=== PATIENT | male | born 1970 | race Caucasian/White ===

== ENCOUNTER 2017-09-01 12:09 | Emergency (ER) | payer OTHER ==
--- NOTE | 2017-09-01 12:31 | PDOC ---
History of Present Illness - General Chief Complaint: Nausea/Vomiting Stated Complaint: N/V/D COUGH Time Seen by Provider: 09/01/17 12:14 History Source: Patient, Spouse Exam Limitations: No Limitations - History of Present Illness Initial Comments: 47 yo M history angioedema presents with 1 day history of N/V/D. He states he has been having cough for the past few days. No fever, no recent travel, no known sick contacts. He vomited multiple times this morning, NBNB. C/o diffuse aching pain in the abdomen. Past History - Past Medical History Allergies/Adverse Reactions: Allergies Allergy/AdvReac Type Severity Reaction Status Date / Time No Known Allergies Allergy Verified 09/01/17 12:12 Home Medications: Ambulatory Orders Ondansetron [Zofran Odt -] 4 mg SL TID PRN #21 od.tablet 09/01/17 Review of Systems - Review of Systems Able to Perform ROS?: Yes Comments:: GENERAL/CONSTITUTIONAL: No fever or chills. +Weakness. HEAD, EYES, EARS, NOSE AND THROAT: No change in vision. No ear pain or discharge. No sore throat. CARDIOVASCULAR: No chest pain or shortness of breath. RESPIRATORY: +Cough. No wheezing or hemoptysis. GASTROINTESTINAL: +Nausea, vomiting, and diarrhea. No constipation. GENITOURINARY: No dysuria, frequency, or change in urination. MUSCULOSKELETAL: No joint or muscle swelling or pain. No neck or back pain. SKIN: No rash NEUROLOGIC: No headache, vertigo, loss of consciousness, or change in strength/ sensation. ENDOCRINE: No increased thirst. No abnormal weight change. HEMATOLOGIC/LYMPHATIC: No anemia, easy bleeding, or history of blood clots. ALLERGIC/IMMUNOLOGIC: No hives or skin allergy. *Physical Exam - Physical Exam Comments: GENERAL: Awake, alert, and fully oriented, in no acute distress. Appears ill but nontoxic. HEAD: No signs of trauma EYES: PERRLA, EOMI, sclera anicteric, conjunctiva clear ENT: Auricles normal inspection, hearing grossly normal, nares patent, oropharynx clear without exudates. Dry mucosa NECK: Normal ROM, supple, no lymphadenopathy, JVD, or masses LUNGS: Breath sounds equal, clear to auscultation bilaterally. No wheezes, and no crackles HEART: Regular rate and rhythm, normal S1 and S2, no murmurs, rubs or gallops ABDOMEN: Soft, diffuse mild tenderness, hyperactive bowel sounds. No guarding, no rebound. No masses EXTREMITIES: Normal range of motion, no edema. No clubbing or cyanosis. No cords, erythema, or tenderness NEUROLOGICAL: Cranial nerves II through XII grossly intact. Normal speech, normal gait SKIN: Warm, Dry, normal turgor, no rashes or lesions noted. ED Treatment Course - LABORATORY CBC & Chemistry Diagram: 09/01/17 12:50 09/01/17 12:50 Medical Decision Making - Medical Decision Making 09/01/17 15:35 Pt reports significant improvement after the toradol. Nausea and vomiting have improved, he is now awake and alert, no longer appears dehydrated. Abd soft and nontender, no signs of acute abdomen. Will complete IV fluids then give a PO challenge. 09/01/17 16:16 Patient tolerated PO challenge. Reports feeling much better. Stable for DC home. Counseled him to return if he has persistent pain, fever, or if the pain localizes. *DC/Admit/Observation/Transfer Diagnosis at time of Disposition: Nausea vomiting and diarrhea - Discharge Dispostion Disposition: HOME Condition at time of disposition: Improved Admit: No - Prescriptions Prescriptions: Ondansetron [Zofran Odt -] 4 mg SL TID PRN #21 od.tablet PRN Reason: Nausea And/Or Vomiting - Referrals - Patient Instructions Printed Discharge Instructions: DI for Diarrhea and Traveler's Diarrhea -- Adult, DI for Vomiting -- Adult - Post Discharge Activity
[2017-09-01] MEDS ORDERED: FAMOTIDINE 20 MG/50 ML IVPB 20 MG/50 ML MG IVPB ONE (12:32)
[2017-09-01] MEDS ORDERED: SODIUM CHLORIDE 3,000 ML IV STA (12:32)
[2017-09-01] MEDS ORDERED: ONDANSETRON 4 MG/2 ML VIAL IVPUSH ONE (12:32)
[2017-09-01 12:34] VITALS: BP 125/69; PULSE 90; TEMP 98.3; BMI 27.9
[2017-09-01] MEDS ORDERED: ONDANSETRON 4 MG/2 ML VIAL ONE (12:42)
[2017-09-01 13:03] LABS: BASO % 0.1 % (0-2.0); HEMOGLOBIN 15.4 GM/dl (11.7-16.9); WHITE BLOOD COUNT 7.7 K/mm3 (4.0-10.8)
[2017-09-01 13:06] LABS: EOS % 0.7 % (0-4.5); HEMATOCRIT 45.2 % (35.4-49); LYMPH % 5.7 % (8-40); MCH 29.7 pg (25.7-33.7); MCHC 34.1 g/dl (32.0-35.9); MEAN PLT VOLUME 9.1 fl (7.5-11.1); MONO % 5.4 % (3.8-10.2); NEUT % 88.1 % (42.8-82.8); PLATELET COUNT 152 K/MM3 (134-434); RDW 12.5 % (11.9-15.9)
[2017-09-01] MEDS ORDERED: FAMOTIDINE IV 20 MG/12 ML VIAL IVPUSH ONE (13:06)
[2017-09-01 13:13] LABS: ALBUMIN 3.7 g/dl (3.5-5.0); ALK PHOS 55 U/L (32-92); ANION GAP 7 (8-16); BILIRUBIN,TOTAL 0.8 mg/dl (0.2-1.0); BLOOD UREA NITROGEN 20 mg/dl (7-18); CALCIUM 8.5 mg/dl (8.4-10.2); CHLORIDE 106 mmol/L (98-107); CO2 22 mmol/L (22-28); CREATININE 0.8 mg/dl (0.6-1.3); GLUCOSE,RANDOM 112 mg/dl (74-106); LIPASE 21 U/L (22-51); POTASSIUM 3.3 mmol/L (3.5-5.1); SGOT/AST 20 U/L (10-42); SGPT/ALT 17 U/L (10-40); SODIUM 135 mmol/L (136-145); TOT PROT 6.5 g/dl (6.4-8.3)
[2017-09-01] MEDS ORDERED: KETOROLAC TROMETHAMINE 30 MG/1 ML VIAL ONE (13:53)
[2017-09-01] MEDS ORDERED: KETOROLAC TROMETHAMINE 30 MG/1 ML VIAL IVPUSH ONE (13:55)
[2017-09-01 14:21] LABS: URINE APPEARANCE Clear; URINE BILIRUBIN Negative (NEGATIVE); URINE BLOOD Negative (NEGATIVE); URINE GLUCOSE (UA) Negative (NEGATIVE); URINE KETONE Negative (NEGATIVE); URINE NITRITE Negative (NEGATIVE); URINE PROTEIN Negative (NEGATIVE); URINE UROBILINOGEN 0.2 (0.2-1.0)
[2017-09-01 14:22] LABS: URINE COLOR YELLOW
== END 2017-09-01 16:29 | disposition home or self-care (01) ==
LOC: MERGE 12:09 → FER 12:09
PROC: 3E033GC Introduction of Other Therapeutic Substance into Peripheral Vein, Percutaneous Approach (ICD-10-PCS; principal; 2017-09-01)
PROC: 3E0333Z Introduction of Anti-inflammatory into Peripheral Vein, Percutaneous Approach (ICD-10-PCS; 2017-09-01)
PROC: 3E033GC Introduction of Other Therapeutic Substance into Peripheral Vein, Percutaneous Approach (ICD-10-PCS; 2017-09-01)
PROC: 3E0337Z Introduction of Electrolytic and Water Balance Substance into Peripheral Vein, Percutaneous Approach (ICD-10-PCS; 2017-09-01)
DX: R11.2 Nausea with vomiting, unspecified (principal); R19.7 Diarrhea, unspecified
CPT/HCPCS: 36415; 80053; 81003; 83690; 85025; 99283-25

== ENCOUNTER 2018-07-27 19:49 | Emergency (ER) | payer OTHER ==
--- NOTE | 2018-07-27 19:55 | PDOC ---
History of Present Illness - General History Source: Patient Exam Limitations: No Limitations - History of Present Illness Initial Comments: 07/27/18 20:23 The patient is a 48 year old male, with a significant PMH of angioedema, who presents to the emergency department complaining of hyperventilation. The patient states he has been having intermittent headaches and swelling of his throat and hands for the past few month. Today the patient complains of SOB, headache, anxiety and hand numbness. He mentions hes under alot of stress secondary to work and experienced an anxiety attack last week. The patient states he is currently not taking any medication for his anxiety The patient denies chest pain and dizziness. Denies fever, chills, nausea, vomit, diarrhea and constipation. PAST MEDICAL HISTORY: no significant history PAST SURGICAL HISTORY: no significant history FAMILY HISTORY: no pertinent history SOCIAL HISTORY: Pt lives with family and is employed. MEDICATIONS: reviewed ALLERGIES: As per nursing notes Adult ROS General: No fevers or chills, no weakness, no weight loss HEENT: No change in vision. No sore throat,. No ear pain CardioVascular: +Shortness of breath Respiratory:No cough, or wheezing. Gastrointestinal: no nausea, vomiting, diarrhea or constipation, No rectal bleeding Genitourinary: No dysuria, hematuria, or frequency Musculoskeletal: No joint or muscle pain or swelling Neurologic: + headache. No vertigo, dizziness or loss of consciousness Psychiatric: nor depression Skin: No rashes or easy bruising Endocrine: no increased thirst or abnormal weight change Allergic: no skin or latex allergy All other systems reviewed and normal Adult Exam: General: +Very Anxious. +Hyperventilation. Well-nourished well-developed individual. HEENT: No evidence of angioedema. Throat: Normal, tonsils normal, no erythema or exudate Neck: Supple, no meningeal signs, no lymphadenopathy Eyes::Pupils equal reactive and round, extraocular motion intact Chest: Nontender to palpation Cardiac: S1-S2 normal, regular rate and rhythm, no murmurs rubs or gallops Respiratory: Lungs clear to auscultation bilateral Abdomen: Soft, nondistended, normal bowel sounds, nontender to palpation diffusely Extremities: Warm, dry, no cyanosis, clubbing, or edema Skin: No rashes Neuro: Alert and oriented x3, nonfocal exam, grossly intact, normal gait Psych: Normal mood and affect <Cierra Lamar - Last Filed: 07/27/18 20:23> - General History Source: Patient Exam Limitations: No Limitations - History of Present Illness Initial Comments: 07/27/18 20:06 This is a 48-year-old male who comes in with anxiety/panic attack. Patient has a history of anxiety and panic was on medication but stopped taking it some time ago. Patient said over the last several weeks he has had multiple anxiety/ panic attacks consist of palpitations, shortness of breath and feeling of impending doom. Patient said he has had a headache now for several weeks which he attributes to his angioedema however he is not taking any medication for it and came in this evening hyperventilating and panicking. On arrival patient was noted to have carpal pedal spasm and was very anxious Patient was given Xanax after a normally exam with the exception of hyperventilation. Discussed with patient's importance of restarting his anxiety/panic medication as he clearly needs it. 07/27/18 20:32 Reevaluation patient feels much better his blood pressure and respiratory rate are now normal. Patient accompanied home with his significant other will follow up with his therapist and restart his anxiety medication. <Tana Fuentes I - Last Filed: 07/27/18 20:33> - General Chief Complaint: Lightheaded Stated Complaint: DIZZY,NAUSEA/ANXIETY Time Seen by Provider: 07/27/18 19:54 Past History <Cierra Lamar - Last Filed: 07/27/18 20:23> - Past Medical History COPD: No - Immunization History Immunization Up to Date: No - Suicide/Smoking/Psychosocial Hx Smoking Status: No Smoking History: Never smoked Have you smoked in the past 12 months: No Number of Cigarettes Smoked Daily: 0 Cigars Per Day: 0 Hx Alcohol Use: No Drug/Substance Use Hx: No Substance Use Type: None <Tana Fuentes I - Last Filed: 07/27/18 20:33> - Past Medical History Allergies/Adverse Reactions: Allergies Allergy/AdvReac Type Severity Reaction Status Date / Time No Known Allergies Allergy Verified 07/27/18 19:51 Home Medications: Ambulatory Orders Prednisone [Deltasone] 40 mg PO PRN 07/27/18 *Physical Exam - Vital Signs Last Vital Signs Temp Pulse Resp BP Pulse Ox 97.6 F 82 22 H 156/102 H 100 07/27/18 19:53 07/27/18 19:53 07/27/18 19:53 07/27/18 19:53 07/27/18 19:53 <Cierra Lamar - Last Filed: 07/27/18 20:23> Moderate Sedation - Procedure Monitoring Vital Signs: Procedure Monitoring Vital Signs Temperature 97.6 F 07/27/18 19:53 Pulse Rate 82 07/27/18 19:53 Respiratory Rate 22 H 07/27/18 19:53 Blood Pressure 156/102 H 07/27/18 19:53 O2 Sat by Pulse Oximetry (%) 100 07/27/18 19:53 <Cierra Lamar - Last Filed: 07/27/18 20:23> ED Treatment Course - Medications Given in the ED: ED Medications Discontinued Medications Generic Name Dose Route Start Last Admin Trade Name Freq PRN Reason Stop Dose Admin Alprazolam 1 mg 07/27/18 20:04 07/27/18 20:07 Xanax PO 07/27/18 20:05 1 mg ONCE STA Administration <Cierra Lamar - Last Filed: 07/27/18 20:23> *DC/Admit/Observation/Transfer - Attestations Scribe Attestion: 07/27/18 20:24 Documentation prepared by Cierra Lamar, acting as medical diagnostic radiographer for Tana Fuentes MD. <Cierra Lamar - Last Filed: 07/27/18 20:23> - Discharge Dispostion Decision to Admit order: No <Tana Fuentes I - Last Filed: 07/27/18 20:33> Diagnosis at time of Disposition: Panic anxiety syndrome - Discharge Dispostion Disposition: HOME Condition at time of disposition: Stable - Referrals Referrals: Tan Zaragoza MD [Primary Care Provider] - - Patient Instructions Additional Instructions: It is important that you follow-up with a therapist and get restarted on medication for your anxiety/panic attacks. Tylenol or Motrin as needed for headaches. Return to the emergency department immediately with ANY new, persistent or worsening symptoms. Continue any medications as previously prescribed by your physician. You should follow up with your primary doctor as soon as possible regarding today's emergency department visit. . Please make sure your doctor reviews the results of your emergency evaluation. Thank you for coming to the Emergency Department today for your care. It was a pleasure to see you today. Please note that your evaluation is INCOMPLETE until you follow-up with your doctor. - Post Discharge Activity
[2018-07-27 19:59] VITALS: TEMP 97.6; BMI 27.2
[2018-07-27] MEDS ORDERED: ALPRAZolam 1 MG TABLET PO PRN (19:59)
[2018-07-27] MEDS ORDERED: ALPRAZolam 0.25 MG TABLET ONE (19:59)
[2018-07-27] MEDS ORDERED: ALPRAZolam 1 MG TABLET PO STA (20:04)
[2018-07-27 20:31] VITALS: BP 122/75; PULSE 75
== END 2018-07-27 20:48 | disposition home or self-care (01) ==
LOC: FER 19:49
DX: F41.0 Panic disorder [episodic paroxysmal anxiety] (principal)
CPT/HCPCS: 99281-25

== ENCOUNTER 2018-11-09 12:54 | Emergency (ER) | payer OTHER ==
--- NOTE | 2018-11-09 12:56 | PDOC ---
History of Present Illness - General Chief Complaint: Pain Stated Complaint: ABD PAIN Time Seen by Provider: 11/09/18 12:56 History Source: Patient Exam Limitations: No Limitations - History of Present Illness Initial Comments: 11/09/18 13:45 HPI 48 YOM with h/o anxiety and depression, angioedema 2/2 stress, kidney stone presenting with LLQ and flank pain since 3AM where he woke up with sweats and shakes, nausea. LLQ pain described as colicky, intermittent and sharp/stabbing, with associated left flank pain. Worse with moving and breathing. pt states similar to prior kidney stone when he was 22 y/o, which was uncomplicated and spontaneously passed. he tool aleve this morning without relief. Denies fever, chills, chest pain, SOB, palpitation, dizziness, weakness, diarrhea, bloody stools or constipation, bladder and bowel problems, no testicular or uretheral sx/pain, no discharge. n o leg swelling, No sick contacts or travel. no suspicious food intake. Allergies: NKA Social history: No smoking. No alcohol. No illicit drugs. PSH: none PMHx anxiety and depression, angioedema 2/2 stress, kidney stone Family history: noncontributory. ROS Constitutional: no fevers or chills. HEENT: no headache or dizziness. CVS: no cp or syncope. Resp: no sob. No cough. Gastrointestinal: +abdominal and flank pain. No vomiting or diarrhea or constipation. No bloody stools Genitourinary: no urinary sx, hematuria. No testicular or scrotal pain. No urethral discharge. MUSCULOSKELETAL: No joint pain and swelling. No neck or back pain. SKIN: no redness or skin changes, no discharge, no rash. No wounds. NEUROLOGIC: No headache, dizziness, LOC or altered mental status. No weakness, numbness or tingling. Allergic/Immunologic: no allergies All other systems reviewed and negative, or as documented in HPI. PE: General: mild distress 2/2 pain. +colicky. HEENT: NCAT, PERRL, EOMI, clear conjunctiva, anicteric, dry mucus membranes, clear oropharynx, no oral lesions.. Neck: neck supple, FROM Resp: CTAB, normal and even respirations, no respiratory distress CVS: RRR, no murmurs, 2+ peripheral pulses throughout, no peripheral edema Abdomen: soft, LLQ and flank tenderness. no rebound or guarding. : normal external genitalia, no lesions, normal testicular lie, no scrotal or testicular edema or tenderness. +cremaster reflex bilaterally. no hernia. chaperoned with Anita RN at bedside. Back: nontender, normal inspection and ROM MSK: no edema, BILL x4, ROM intact. No clubbing or cyanosis. normal bulk and tone. Neuro: alert Skin: warm and well perfused, cap refill <2 sec, normal color 11/09/18 13:47 11/09/18 15:01 Past History - Past Medical History Allergies/Adverse Reactions: Allergies Allergy/AdvReac Type Severity Reaction Status Date / Time No Known Allergies Allergy Verified 11/09/18 13:01 Home Medications: Ambulatory Orders Ciprofloxacin [Cipro -] 500 mg PO Q12H #20 tablet 11/09/18 Clonazepam [Klonopin] mg PO ASDIR 11/09/18 Fluoxetine HCl [Prozac] 20 mg PO DAILY 11/09/18 Oxycodone HCl 10 mg PO QID PRN #12 tablet MDD 4 11/09/18 metroNIDAZOLE [Flagyl -] 500 mg PO DAILY #20 tablet 11/09/18 COPD: No - Immunization History Immunization Up to Date: No - Suicide/Smoking/Psychosocial Hx Smoking Status: No Smoking History: Never smoked Have you smoked in the past 12 months: No Number of Cigarettes Smoked Daily: 0 Cigars Per Day: 0 Hx Alcohol Use: No Drug/Substance Use Hx: No Substance Use Type: None ED Treatment Course - LABORATORY CBC & Chemistry Diagram: 11/09/18 13:13 11/09/18 13:13 Medical Decision Making - Medical Decision Making 11/09/18 13:46 hpi as documented VS reviewed, wnl. DDx abdominal pain: Renal colic, ureteral stone/obstruction, metabolic/ electrolyte derangements. GERD, PUD, esophageal spasm, pancreatitis, hepatitis, constipation, UTI, pyelonephritis, hernia, appendicitis, diverticulitis labs and lytes wnl. analgesia here with toradol. then morphine additionally. with appropriate clinical response, feels improved. no fever, nontoxic appearing. UA with some blood, but no s/s infection. CT a/p neg for ureteral stones (initial top diff dx), +acute sigmoid diverticulitis. cipro and flagyl x1 dose here, additional rx oxycodone for severe pain. Will discharge patient with a short course of opiates. Went over the risks of the medication. Advised patient to not mix with other products containing acetaminophen, to not combine with alcohol, or other illicit drugs, to not drive or operate machinery, and to refrain from any activity that will require complete attention while taking this medication. Pt informed of my clinical impression, treatment recommendations and disposition plan. All questions answered to patient's satisfaction and expressed understanding and comfort with this. Reasons for returning to the ED sooner discussed with the patient otherwise, follow up with primary care physician. At the time of discharge, the patient is alert, clinically improved, tolerating po and verbalizes understanding of instructions. Patient does not suffer from an acute life-threatening medical condition at this time he is safe for outpatient follow-up. 11/09/18 15:18 *DC/Admit/Observation/Transfer Diagnosis at time of Disposition: Acute diverticulitis - Discharge Dispostion Disposition: HOME Condition at time of disposition: Stable Decision to Admit order: No - Prescriptions Prescriptions: Ciprofloxacin [Cipro -] 500 mg PO Q12H #20 tablet metroNIDAZOLE [Flagyl -] 500 mg PO DAILY #20 tablet Oxycodone HCl 10 mg PO QID PRN #12 tablet MDD 4 PRN Reason: Pain - Referrals Referrals: Tan Zaragoza MD [Non Staff, Medical] - [facility] [place] [facility] [Provider Group] [facility] [Provider Group] - Patient Instructions Printed Discharge Instructions: DI for Diverticulitis Additional Instructions: 1) Please follow-up with your primary care doctor in the next 1-2 days. Please call tomorrow for an appointment. If you cannot follow-up with your primary care doctor please return to the ED for any urgent issues. 2) You were given a copy of the tests performed today. Please bring the results with you and review them with your primary care doctor. Your laboratory / imaging results were notable for Acute Diverticulitis 3) If you have any worsening of symptoms or any other concerns please return to the ED immediately. Return if worsening symptoms including fevers, headache, vomiting, visual or hearing disturbances, worsening abdominal pain, bloody stools, chest pain, shortness of breath, syncope, dehydration, inability to take things by mouth/vomiting, altered mental status, or worsening concerning symptoms. 4) Please continue taking your home medications as directed. your medications on discharge include Ciprofloxacin and flagyl twice a day x 10 days . side effects may include upset stomach, abdominal pain, vomiting, or diarrhea. do not drink alcohol with your medications. PAIN MEDICATIONS Please take IBUPROFEN (aka MOTRIN, ADVIL, ALEVE) 400 mg and/or ACETAMINOPHEN ( aka Tylenol) 650-975 mg every 6 hours, as needed, for pain. Please do not take these medications if you have a bleeding disorder, stomach or GI ulcer problems or liver disease. Please take one tablet of OXYCODONE every 6 hours, as needed for SEVERE pain. Please do not take this medication unless you absolutely need it, it is very addictive. Please do not drive, operate heavy machinery or make important decisions while on this medication, it can cloud your judgement. Stay well hydrated and rest adequately. - Post Discharge Activity Forms/Work/School Notes: Back to Work
[2018-11-09] MEDS ORDERED: SODIUM CHLORIDE 1,000 ML IV STA (12:57)
[2018-11-09 13:05] VITALS: TEMP 97.7; BMI 28.7
[2018-11-09] MEDS ORDERED: KETOROLAC TROMETHAMINE 15 MG/ML VIAL IVPUSH ONE (13:31)
[2018-11-09] MEDS ORDERED: ONDANSETRON 4 MG/2 ML VIAL IVPUSH ONE (13:31)
[2018-11-09 13:37] LABS: BASO % 0.2 % (0-2.0); EOS % 0.2 % (0-4.5); HEMOGLOBIN 14.7 GM/dl (11.7-16.9); LYMPH % 6.9 % (8-40); MCHC 32.7 g/dl (32.0-35.9); MEAN CELL VOLUME 85.5 fl (80-96); MONO % 4.3 % (3.8-10.2); NEUT % 88.4 % (42.8-82.8); PLATELET COUNT 200 K/MM3 (134-434); RBC 5.25 M/mm3 (4.00-5.60); RDW 12.1 % (11.9-15.9)
[2018-11-09] MEDS ORDERED: KETOROLAC TROMETHAMINE 30 MG/1 ML VIAL ONE (13:39)
[2018-11-09] MEDS ORDERED: ONDANSETRON 4 MG/2 ML VIAL ONE (13:42)
[2018-11-09 13:44] LABS: URINE APPEARANCE CLEAR; URINE BILIRUBIN NEGATIVE (NEGATIVE); URINE COLOR YELLOW; URINE GLUCOSE (UA) NEGATIVE (NEGATIVE); URINE KETONE NEGATIVE (NEGATIVE); URINE LEUK ESTERASE NEGATIVE (NEGATIVE); URINE NITRITE NEGATIVE (NEGATIVE); URINE PROTEIN NEGATIVE (NEGATIVE); URINE UROBILINOGEN 4.0 E.U/dl (0.2-1.0)
[2018-11-09 13:50] LABS: ALBUMIN 3.9 g/dl (3.4-5.0); ALK PHOS 64 U/L (45-117); ANION GAP 8 MMOL/L (8-16); BILIRUBIN,TOTAL 1.1 mg/dl (0.2-1); BLOOD UREA NITROGEN 15 mg/dl (7-18); CALCIUM 8.8 mg/dl (8.5-10); CHLORIDE 102 mmol/L (98-107); CO2 24 mmol/L (21-32); CREATININE 0.9 mg/dl (0.55-1.3); GLUCOSE,RANDOM 112 mg/dl (74-106); POTASSIUM 3.9 mmol/L (3.5-5.1); SGOT/AST 13 U/L (15-37); SGPT/ALT 11 U/L (13-61); SODIUM 134 mmol/L (136-145); TOT PROT 6.7 g/dl (6.4-8.2)
[2018-11-09 13:59] LABS: EPI CELLS FEW /HPF; URINE WBC 0-2 (0-2)
[2018-11-09] MEDS ORDERED: CIPROFLOXACIN 500 MG TABLET (RESTRICTED TO ID) PO ONE (14:46)
[2018-11-09] MEDS ORDERED: metroNIDAZOLE 500 MG TABLET PO ONE (14:46)
[2018-11-09] MEDS ORDERED: morphine CARPU-JECT 4 MG/1 ML DISP.SYRIN IVPUSH ONE (14:49)
[2018-11-09] MEDS ORDERED: metroNIDAZOLE 250 MG TABLET ONE (14:59)
[2018-11-09] MEDS ORDERED: CIPROFLOXACIN 250 MG TABLET (RESTRICTED TO ID) PO ONE (15:00)
[2018-11-09] MEDS ORDERED: morphine SULFATE 4 MG/ML VIAL ONE (15:00)
[2018-11-09 16:10] VITALS: BP 123/66; PULSE 78
[2018-11-09 18:12] LABS: LIPASE 79 U/L (73-393)
== END 2018-11-09 16:10 | disposition home or self-care (01) ==
LOC: FER 12:54
PROC: 3E0333Z Introduction of Anti-inflammatory into Peripheral Vein, Percutaneous Approach (ICD-10-PCS; principal; 2018-11-09)
PROC: 3E03329 Introduction of Other Anti-infective into Peripheral Vein, Percutaneous Approach (ICD-10-PCS; 2018-11-09)
PROC: 3E033NZ Introduction of Analgesics, Hypnotics, Sedatives into Peripheral Vein, Percutaneous Approach (ICD-10-PCS; 2018-11-09)
PROC: 3E0337Z Introduction of Electrolytic and Water Balance Substance into Peripheral Vein, Percutaneous Approach (ICD-10-PCS; 2018-11-09)
DX: K57.92 Diverticulitis of intestine, part unspecified, without perforation or abscess without bleeding (principal); F41.8 Other specified anxiety disorders; T78.3XXA Angioneurotic edema, initial encounter
CPT/HCPCS: 36415; 74176-TC; 80053; 81003; 81015; 83690; 85025; 87086; 99285-25; J7030

== ENCOUNTER 2018-11-11 13:22 | Inpatient (IN) | payer OTHER ==
[2018-11-11] MEDS ORDERED: SODIUM CHLORIDE 500 ML IV ONE (13:27)
[2018-11-11] MEDS ORDERED: morphine CARPU-JECT 4 MG/1 ML DISP.SYRIN IVPUSH ONE ×2 (13:38→16:01)
[2018-11-11] MEDS ORDERED: SODIUM CHLORIDE 1,000 ML IV ONE (13:40)
[2018-11-11] MEDS ORDERED: ONDANSETRON 4 MG/2 ML VIAL IVPUSH ONE (13:40)
[2018-11-11] MEDS ORDERED: ONDANSETRON 4 MG/2 ML VIAL ONE (13:42)
[2018-11-11] MEDS ORDERED: morphine SULFATE 4 MG/ML VIAL ONE ×2 (13:42→16:03)
[2018-11-11] MEDS ORDERED: PIPERACILLIN/TAZOB 4.5 GM 4.5 GM in DEXTROSE 5%-WATER 100 ML IVPB ONE (14:24)
--- NOTE | 2018-11-11 14:24 | PDOC ---
History of Present Illness - General History Source: Patient Exam Limitations: No Limitations - History of Present Illness Initial Comments: 11/11/18 14:56 The patient is a 48 year old male, with a significant PMH of depression and angioedema, who presents to the emergency room for evaluation of constant left lower quadrant abdominal pain. The patient was seen here on 11/09/18 for similar symptoms and was diagnosed with diverticulitis and sent home with a prescription of antibiotics. The patient states that once the pain medications wore off on Saturday, that the pain came back like crazy. He explains that the pain has been progressively getting worse and is exacerbated upon exertion. Patient notes that he has not been able to keep anything down PO. He also reports chills, a subjective fever, and hematuria - red/orange in color. Denies history of colonoscopies. Reports kidney stones around 21 years old. The patient denies chest pain, shortness of breath, headache and dizziness. Denies fever, chills, nausea, vomit, diarrhea and constipation. Denies dysuria, frequency, urgency and hematuria. Allergies: NKA Social history: None reported <Bindu Stanford - Last Filed: 11/11/18 14:56> <Devan Altamirano - Last Filed: 11/16/18 22:23> - General Chief Complaint: Pain Stated Complaint: ABD PAIN, HEMATURIA Time Seen by Provider: 11/11/18 13:26 Past History <Bindu Stanford - Last Filed: 11/11/18 14:56> - Past Medical History COPD: No GI Disorders: Yes (DIVERTICULITIS) Kidney Stones: Yes Psychiatric Problems: Yes (ANXIETY/depression) Other medical history: angioedema - Immunization History Immunization Up to Date: No - Suicide/Smoking/Psychosocial Hx Smoking Status: No Smoking History: Never smoked Have you smoked in the past 12 months: No Number of Cigarettes Smoked Daily: 0 Cigars Per Day: 0 Information on smoking cessation initiated: No Hx Alcohol Use: No Drug/Substance Use Hx: No Substance Use Type: None <Devan Altamirano - Last Filed: 11/16/18 22:23> - Past Medical History Allergies/Adverse Reactions: Allergies Allergy/AdvReac Type Severity Reaction Status Date / Time No Known Allergies Allergy Verified 11/11/18 13:26 Home Medications: Ambulatory Orders Ciprofloxacin [Cipro -] 500 mg PO Q12H #20 tablet 11/09/18 Clonazepam [Klonopin] 1 mg PO ASDIR PRN 11/09/18 Fluoxetine HCl [Prozac] 20 mg PO DAILY 11/09/18 Oxycodone HCl 10 mg PO QID PRN #12 tablet MDD 4 11/09/18 metroNIDAZOLE [Flagyl -] 500 mg PO DAILY #20 tablet 11/09/18 Trazodone HCl 150 mg PO HS PRN 11/11/18 Review of Systems - Review of Systems Constitutional: Yes: Chills. No: Fever Respiratory: No: Shortness of Breath Cardiac (ROS): No: Chest Pain ABD/GI: Yes: Diarrhea, Nausea, Vomiting. No: Constipated : Yes: Dysuria, Hematuria. No: Flank Pain Neurological: No: Headache All Other Systems: Reviewed and Negative <Devan Altamirano - Last Filed: 11/16/18 22:23> *Physical Exam - Vital Signs Last Vital Signs Temp Pulse Resp BP Pulse Ox 97.8 F 77 16 134/86 100 11/11/18 13:22 11/11/18 13:22 11/11/18 13:22 11/11/18 13:22 11/11/18 13:22 - Physical Exam Comments: 11/11/18 14:57 GENERAL: The patient is awake, alert, and fully oriented, in no acute distress. HEAD: Normal with no signs of trauma. EYES: Pupils equal, round and reactive to light, extraocular movements intact, sclera anicteric, conjunctiva clear with no pallor. ENT: Ears normal, nares patent, oropharynx clear without exudates. (+)Dry mucous membranes. ABDOMEN: (+)referred pain to the LLQ upon palpation of RLQ. (+)rebound. (+)LLQ tenderness with guarding. Soft, nondistended. No palpable masses. No hepatosplenomegaly. EXTREMITIES: Normal range of motion, no edema. No clubbing or cyanosis. No cords, erythema, or tenderness. NEUROLOGICAL: Cranial nerves II through XII grossly intact. Normal speech. PSYCH: Normal mood, normal affect. SKIN: Warm, Dry, normal turgor, no rashes or lesions noted. <Bindu Stanford - Last Filed: 11/11/18 14:56> - Vital Signs Last Vital Signs Temp Pulse Resp BP Pulse Ox 97.8 F 77 16 134/86 100 11/11/18 13:22 11/11/18 13:22 11/11/18 13:22 11/11/18 13:22 11/11/18 13:22 <Devan Altamirano - Last Filed: 11/16/18 22:23> Moderate Sedation - Procedure Monitoring Vital Signs: Procedure Monitoring Vital Signs Temperature 97.8 F 11/11/18 13:22 Pulse Rate 77 11/11/18 13:22 Respiratory Rate 16 11/11/18 13:22 Blood Pressure 134/86 11/11/18 13:22 O2 Sat by Pulse Oximetry (%) 100 11/11/18 13:22 <Bindu Stanford - Last Filed: 11/11/18 14:56> - Procedure Monitoring Vital Signs: Procedure Monitoring Vital Signs Temperature 97.8 F 11/11/18 13:22 Pulse Rate 77 11/11/18 13:22 Respiratory Rate 16 11/11/18 13:22 Blood Pressure 134/86 11/11/18 13:22 O2 Sat by Pulse Oximetry (%) 100 11/11/18 13:22 <Devan Altamirano - Last Filed: 11/16/18 22:23> Heart Score/ECG Review #1 ECG reviewed & interpreted by me at: 16:23 General ECG Interpretation: Sinus Rhythm, Normal Rate (61), Normal Intervals ( qtc 420), No acute ischemic changes <Devan Altamirano - Last Filed: 11/16/18 22:23> ED Treatment Course - LABORATORY CBC & Chemistry Diagram: 11/11/18 13:37 11/11/18 13:37 - ADDITIONAL ORDERS Additional order review: Laboratory Results 11/11/18 11/11/18 14:00 13:37 PT with INR 14.9 H INR 1.34 H Sodium 132 L Potassium 3.3 L Chloride 97 L Carbon Dioxide 25 Anion Gap 10 BUN 11 Creatinine 0.9 Creat Clearance w eGFR 90.45 Random Glucose 92 Calcium 8.7 Total Bilirubin 1.2 H AST 16 ALT 9 L Alkaline Phosphatase 64 Total Protein 6.7 Albumin 3.6 11/11/18 13:37 RBC 5.11 MCV 85.6 MCHC 33.3 RDW 12.1 MPV 9.2 Neutrophils % 78.9 Lymphocytes % 12.6 D Monocytes % 7.5 Eosinophils % 0.7 D Basophils % 0.3 - Medications Given in the ED: ED Medications Discontinued Medications Generic Name Dose Route Start Last Admin Trade Name José Miguel PRN Reason Stop Dose Admin Sodium Chloride 500 mls @ 500 mls/hr 11/11/18 13:27 11/11/18 13:40 Normal Saline - IV 11/11/18 14:26 500 mls/hr ONCE ONE Administration Sodium Chloride 1,000 mls @ 1,000 mls/hr 11/11/18 13:40 11/11/18 14:08 Normal Saline - IV 11/11/18 14:26 1,000 mls/hr ONCE ONE Administration Piperacillin Sod/Tazobactam 100 mls @ 200 mls/hr 11/11/18 14:24 11/11/18 14: 45 Sod 4.5 gm/ Dextrose IVPB 11/11/18 14:53 200 mls/hr ONCE ONE Administration Protocol Morphine Sulfate 4 mg 11/11/18 13:38 11/11/18 13:55 Morphine Injection - IVPUSH 11/11/18 13:39 4 mg ONCE ONE Administration Ondansetron HCl 4 mg 11/11/18 13:40 11/11/18 13:45 Zofran Injection IVPUSH 11/11/18 13:41 4 mg ONCE ONE Administration <Bindu Stanford - Last Filed: 11/11/18 14:56> - LABORATORY CBC & Chemistry Diagram: 11/16/18 06:15 11/16/18 06:15 - RADIOLOGY Radiology Studies Ordered: Category Date Time Status ABDOMEN & PELVIS CT WITH CONTR [CT] Stat CT Scan 11/11/18 13:40 Ordered - Medications Given in the ED: ED Medications Discontinued Medications Generic Name Dose Route Start Last Admin Trade Name José Miguel PRN Reason Stop Dose Admin Sodium Chloride 500 mls @ 500 mls/hr 11/11/18 13:27 11/11/18 13:40 Normal Saline - IV 11/11/18 14:26 500 mls/hr ONCE ONE Administration Morphine Sulfate 4 mg 11/11/18 13:38 11/11/18 13:55 Morphine Injection - IVPUSH 11/11/18 13:39 4 mg ONCE ONE Administration Ondansetron HCl 4 mg 11/11/18 13:40 11/11/18 13:45 Zofran Injection IVPUSH 11/11/18 13:41 4 mg ONCE ONE Administration <Devan Altamirano - Last Filed: 11/16/18 22:23> Medical Decision Making - Medical Decision Making 11/11/18 14:21 48y/o M h/o depression presents for 2nd visit of abdominal pain. Pt seen here 3d ago and diagnosed with diverticulitis, no other red flags so discharged on oral abx. Pt presents now c/o persistent/worsening LLQ pain despite abx, now associated with chills, night sweats, and inability to tolerate PO. Has had intermittent bouts of hematuria, no flank pain. no surgical history, this is first diagnosis of diverticulitis. VSS, afebrile arrives grabbing his abdomen in pain dry mucosa, no jaundice/pallor s1s2 rrr, ctab soft/nd. tender with guarding LLQ, + referred pain and + rebound. 48y/o M with worsening diverticulitis despite outpt abx, no evidence of SIRS/ sepsis here, still with localized peritoneal findings. r/o complication such as perforation/abscess, r/o superimposed process. labs, ua repeat CTAP ivf, iv pain medicine, anti-emetic iv abx will need admission for failed oral abx 11/11/18 15:05 no leukocytosis, normal diff chem notable for dehydration, Cr normal. UA with slight blood, + ketones, no evidence of infection. sxs improved after meds, awaiting CTAP 11/11/18 15:42 receiving IV fluids, potassium repleted. CT pending. Accepted for inpatient med/surg by Dr. Coats, signout given to SHERRI Nguyen <Devan Altamirano - Last Filed: 11/16/18 22:23> *DC/Admit/Observation/Transfer - Attestations Scribe Attestion: 11/11/18 14:57 Documentation prepared by Bindu Stanford, acting as medical records director for Devan Altamirano MD. <Bindu Stanford - Last Filed: 11/11/18 14:56> - Discharge Dispostion Decision to Admit order: Yes <Devan Altamirano - Last Filed: 11/16/18 22:23> Diagnosis at time of Disposition: Acute diverticulitis - Discharge Dispostion Condition at time of disposition: Fair
[2018-11-11 14:29] LABS: BASO % 0.3 % (0-2.0); EOS % 0.7 % (0-4.5); HEMATOCRIT 43.8 % (35.4-49); HEMOGLOBIN 14.6 GM/dl (11.7-16.9); LYMPH % 12.6 % (8-40); MCH 28.5 pg (25.7-33.7); MCHC 33.3 g/dl (32.0-35.9); MEAN CELL VOLUME 85.6 fl (80-96); MEAN PLT VOLUME 9.2 fl (7.5-11.1); MONO % 7.5 % (3.8-10.2); NEUT % 78.9 % (42.8-82.8); PLATELET COUNT 188 K/MM3 (134-434); RBC 5.11 M/mm3 (4.00-5.60); RDW 12.1 % (11.9-15.9); WHITE BLOOD COUNT 8.3 K/mm3 (4.0-10.8)
[2018-11-11 14:30] LABS: INR 1.34 (0.82-1.09); PROTHROMBIN TIME (PATIENT) 14.9 SEC (10.2-13.0)
[2018-11-11 14:33] LABS: ALBUMIN 3.6 g/dl (3.4-5.0); ALK PHOS 64 U/L (45-117); ANION GAP 10 MMOL/L (8-16); BILIRUBIN,TOTAL 1.2 mg/dl (0.2-1); BLOOD UREA NITROGEN 11 mg/dl (7-18); CALCIUM 8.7 mg/dl (8.5-10); CHLORIDE 97 mmol/L (98-107); CO2 25 mmol/L (21-32); CREATININE 0.9 mg/dl (0.55-1.3); GLUCOSE,RANDOM 92 mg/dl (74-106); POTASSIUM 3.3 mmol/L (3.5-5.1); SGOT/AST 16 U/L (15-37); SGPT/ALT 9 U/L (13-61); SODIUM 132 mmol/L (136-145); TOT PROT 6.7 g/dl (6.4-8.2)
[2018-11-11] MEDS ORDERED: PIPERACILLIN/TAZOBACTAM 4.5 GM VIAL IVPB ONE (14:34)
[2018-11-11 15:01] LABS: URINE APPEARANCE CLEAR; URINE BILIRUBIN NEGATIVE (NEGATIVE); URINE COLOR YELLOW; URINE GLUCOSE (UA) NEGATIVE (NEGATIVE); URINE KETONE 4+ (NEGATIVE)
[2018-11-11 15:02] LABS: URINE LEUK ESTERASE NEGATIVE (NEGATIVE); URINE NITRITE NEGATIVE (NEGATIVE); URINE PROTEIN NEGATIVE (NEGATIVE); URINE UROBILINOGEN 4.0 E.U/dl (0.2-1.0)
[2018-11-11] MEDS ORDERED: POTASSIUM CHLORIDE TABS 20 MEQ TABLET.ER (FP) PO ONE ×2 (15:41→15:43)
[2018-11-11 16:03] LABS: LIPASE 152 U/L (73-393)
[2018-11-11] MEDS: SODIUM CHLORIDE 1,000 ML IV SCH (16:10)
--- NOTE | 2018-11-11 16:35 | HP ---
CHIEF COMPLAINT: Left lower quadrant pain PCP: None HISTORY OF PRESENT ILLNESS: 48 year-old male with a PMH significant for idiopathic angioedema, renal calculi (remote), and depression/anxiety. Presents today to the ED with a complaint of constant left lower quadrant abdominal pain. The patient was seen here on 11/09/18 for similar symptoms and was diagnosed with diverticulitis and sent home with prescriptions for cipro and metronidazole. The patient states that once the pain medications wore off on Saturday, that the pain came back like crazy. He explains that the pain has been progressively getting worse and is exacerbated upon exertion. Patient notes that he has not been able to keep anything down. He reports chills, subjective fever, and hematuria. ER course was notable for: (1) No fever, no leukocytosis (2) Na 132, K 3.3 Recent Travel: No PAST MEDICAL HISTORY: Idiopathic angioedema, stress induced Kidney stone (age 22) Depression/anxiety PAST SURGICAL HISTORY: Social History: Smoking: no Alcohol: no Drugs: no Family History: father age 70 h/o diverticulitis, HTN; mother age 71 with non- Hodgkins lymphoma x 15 years; sister a&w Allergies No Known Allergies Allergy (Verified 11/11/18 13:26) HOME MEDICATIONS: Home Medications Medication Instructions Recorded Ciprofloxacin [Cipro -] 500 mg PO Q12H #20 tablet 11/09/18 Clonazepam [Klonopin] 1 mg PO ASDIR PRN 11/09/18 Fluoxetine HCl [Prozac] 20 mg PO DAILY 11/09/18 Oxycodone HCl 10 mg PO QID PRN #12 tablet MDD 4 11/09/18 metroNIDAZOLE [Flagyl -] 500 mg PO DAILY #20 tablet 11/09/18 Trazodone HCl 150 mg PO HS PRN 11/11/18 REVIEW OF SYSTEMS CONSTITUTIONAL: Absent: fever, chills, diaphoresis, generalized weakness, malaise, loss of appetite, weight change HEENT: Absent: rhinorrhea, nasal congestion, throat pain, throat swelling, difficulty swallowing, mouth swelling, ear pain, eye pain, visual changes CARDIOVASCULAR: Absent: chest pain, syncope, palpitations, irregular heart rate, lightheadedness , peripheral edema RESPIRATORY: Absent: cough, shortness of breath, dyspnea with exertion, orthopnea, wheezing, stridor, hemoptysis GASTROINTESTINAL: +LLQ pain Absent: abdominal pain, abdominal distension, nausea, vomiting, diarrhea, constipation, melena, hematochezia GENITOURINARY: Absent: dysuria, frequency, urgency, hesitancy, hematuria, flank pain, genital pain MUSCULOSKELETAL: Absent: myalgia, arthralgia, joint swelling, back pain, neck pain SKIN: Absent: rash, itching, pallor HEMATOLOGIC/IMMUNOLOGIC: Absent: easy bleeding, easy bruising, lymphadenopathy, frequent infections ENDOCRINE: Absent: unexplained weight gain, unexplained weight loss, heat intolerance, cold intolerance NEUROLOGIC: Absent: headache, focal weakness or paresthesias, dizziness, unsteady gait, seizure, mental status changes, bladder or bowel incontinence PSYCHIATRIC: Absent: anxiety, depression, suicidal or homicidal ideation, hallucinations. PHYSICAL EXAMINATION Vital Signs - 24 hr 11/11/18 13:22 Temperature 97.8 F Pulse Rate 77 Respiratory 16 Rate Blood Pressure 134/86 O2 Sat by Pulse 100 Oximetry (%) GENERAL: Awake, alert, and fully oriented; in mild distress secondary to pain; restless, anxious EYES: Pupils equal, round and reactive to light, extraocular movements intact, sclera anicteric, conjunctiva clear. No lid lag. EARS, NOSE, THROAT: Ears normal, nares patent, oropharynx clear without exudates. Moist mucous membranes. NECK: Normal range of motion, supple without lymphadenopathy, JVD, or masses. LUNGS: Breath sounds equal, clear to auscultation bilaterally. No wheezes, and no crackles. No accessory muscle use. HEART: Regular rate and rhythm,S1 and S2 ABDOMEN: Soft, +LLQ tenderness, normoactive bowel sounds MUSCULOSKELETAL: Normal range of motion at all joints. No bony deformities or tenderness. No CVA tenderness. UPPER EXTREMITIES: 2+ pulses, warm, well-perfused. No cyanosis. No clubbing. No peripheral edema. LOWER EXTREMITIES: 2+ pulses, warm, well-perfused. No calf tenderness. No peripheral edema. NEUROLOGICAL: Cranial nerves II-XII intact. Normal speech. SKIN: Welt on left hip ~ 10cm wide, mildly indurated Laboratory Results - last 24 hr 11/11/18 11/11/18 11/11/18 13:37 13:37 14:00 WBC 8.3 RBC 5.11 Hgb 14.6 Hct 43.8 MCV 85.6 MCH 28.5 MCHC 33.3 RDW 12.1 Plt Count 188 MPV 9.2 Absolute Neuts (auto) 6.6 Neutrophils % 78.9 Lymphocytes % 12.6 D Monocytes % 7.5 Eosinophils % 0.7 D Basophils % 0.3 PT with INR 14.9 H INR 1.34 H Sodium 132 L Potassium 3.3 L Chloride 97 L Carbon Dioxide 25 Anion Gap 10 BUN 11 Creatinine 0.9 Creat Clearance w eGFR 90.45 Random Glucose 92 Calcium 8.7 Total Bilirubin 1.2 H AST 16 ALT 9 L Alkaline Phosphatase 64 Total Protein 6.7 Albumin 3.6 Lipase 152 Urine Color Urine Appearance Urine pH Ur Specific [place] Urine Protein Urine Glucose (UA) Urine Ketones Urine Blood Urine Nitrite Urine Bilirubin Urine Urobilinogen Ur Leukocyte Esterase 11/11/18 14:30 WBC RBC Hgb Hct MCV MCH MCHC RDW Plt Count MPV Absolute Neuts (auto) Neutrophils % Lymphocytes % Monocytes % Eosinophils % Basophils % PT with INR INR Sodium Potassium Chloride Carbon Dioxide Anion Gap BUN Creatinine Creat Clearance w eGFR Random Glucose Calcium Total Bilirubin AST ALT Alkaline Phosphatase Total Protein Albumin Lipase Urine Color Yellow Urine Appearance Clear Urine pH 7.0 Ur Specific [place] 1.010 Urine Protein Negative Urine Glucose (UA) Negative Urine Ketones 4+ H Urine Blood Trace-intact H Urine Nitrite Negative Urine Bilirubin Negative Urine Urobilinogen 4.0 e.u/dl Ur Leukocyte Esterase Negative ASSESSMENT/PLAN: 48 year-old male with a PMH significant for idiopathic angioedema, renal calculi (remote), and depression/anxiety. Diagnosed with acute diverticultits of the sigmoid on 11/09 and sent home on PO antibiotics. Returns for worsening pain. Acute diverticultitis sigmoid colon --11/11 CTAP: since 11/09, interval development of 2.4 x 0.8cm abscess upper third of sigmoid; small pocket intraluminal air; interval development of small bowel dilitation c/w ileus v. partial SBO --has been on PO cipro and flagyl x 2 days --start Zosyn --IV fluids --ID consult --surgical consult: patient elects conservative management for now --IR consult for possible abscess drainage Depression/anxiety --continue Prozac, lorazepam, trazadone Idiopathic angioedema --triggered by stress --very anxious in ED, and has newly developed welt on left hip which is typical presentation --ativan x 1; decadron 10mg x 1 FEN Fluids: NS @ 150mL/hr Electrolytes: replete as indicated Nutrition: NPO DVT prophylaxis: Dispo: continues to require observation. Full code. Visit type - Emergency Visit Emergency Visit: Yes ED Registration Date: 11/11/18 Care time: The patient presented to the Emergency Department on the above date and was hospitalized for further evaluation of their emergent condition. - New Patient This patient is new to me today: Yes Date on this admission: 11/12/18 - Critical Care Critical Care patient: No
[2018-11-11] MEDS ORDERED: ONDANSETRON 4 MG/2 ML VIAL IVPUSH PRN (17:13)
[2018-11-11 17:56] LABS: URINE BACTERIA 1+ /hpf (NEGATIVE); URINE WBC 0-2 (0-2)
[2018-11-11] MEDS ORDERED: LORazepam 2 MG/ML SDV VIAL ONE (19:55)
[2018-11-11] MEDS ORDERED: LORazepam 2 MG/ML SDV VIAL IVPUSH ONE (20:00)
[2018-11-11] MEDS ORDERED: traZODone HCL 50 MG TABLET (FP) PO PRN (20:07)
[2018-11-11] MEDS ORDERED: clonazePAM 0.5 MG TABLET PO PRN (20:09)
[2018-11-11] MEDS ORDERED: morphine SULFATE 4 MG/ML VIAL IVPUSH PRN (20:17)
--- NOTE | 2018-11-11 20:40 | CON.ID ---
Consult Consult Specialty:: infectious diseases Referred by:: hospitalist Reason for Consultation:: abd pain,vomiting - History of Present Illness Chief Complaint: abd pain History of Present Illness: 48 yo male with a PMH significant for idiopathic angioedema, renal calculi ( remote), and depression/anxiety. Presents today to the ED with a complaint of constant left lower quadrant abdominal pain. The patient was seen here on for similar symptoms and was diagnosed with diverticulitis and sent home with prescriptions for cipro and metronidazole. The patient states that once the pain medications wore off on Saturday, that the pain came back like crazy. He explains that the pain has been progressively getting worse and is exacerbated upon exertion. Patient notes that he has not been able to keep anything down. He reports chills, subjective fever, and hematuria - History Source History Provided By: Patient Limitations to Obtaining History: No Limitations - Alcohol/Substance Use Hx Alcohol Use: No - Smoking History Smoking history: Never smoked Have you smoked in the past 12 months: No Aproximately how many cigarettes per day: 0 Home Medications - Allergies Allergies/Adverse Reactions: Allergies Allergy/AdvReac Type Severity Reaction Status Date / Time No Known Allergies Allergy Verified 11/11/18 13:26 - Home Medications Home Medications: Ambulatory Orders RX: Clonazepam [Klonopin] 1 mg PO ASDIR PRN 11/09/18 RX: Fluoxetine HCl [Prozac] 20 mg PO DAILY 11/09/18 RX: Trazodone HCl 150 mg PO HS PRN 11/11/18 Amox-Tr/K Cl [Augmentin - 875Mg Tablet] 1 tab PO BID #14 tablet 11/18/18 Review of Systems - Review of Systems Constitutional: reports: No Symptoms Eyes: reports: No Symptoms HENT: reports: No Symptoms Neck: reports: No Symptoms Cardiovascular: reports: No Symptoms Respiratory: reports: No Symptoms Gastrointestinal: reports: Abdominal Pain, Vomiting Genitourinary: reports: No Symptoms Musculoskeletal: reports: No Symptoms Integumentary: reports: No Symptoms Neurological: reports: No Symptoms Endocrine: reports: No Symptoms Hematology/Lymphatic: reports: No Symptoms Psychiatric: reports: No Symptoms Physical Exam Vital Signs: Vital Signs Temperature 98.7 F 11/11/18 19:00 Pulse Rate 77 11/11/18 19:00 Respiratory Rate 18 11/11/18 19:00 Blood Pressure 121/68 11/11/18 19:00 O2 Sat by Pulse Oximetry (%) 99 11/11/18 19:00 Constitutional: Yes: Calm, Mild Distress HENT: Yes: Atraumatic Neck: Yes: Supple, Trachea Midline Cardiovascular: Yes: Regular Rate and Rhythm Respiratory: Yes: Regular, CTA Bilaterally Gastrointestinal: Yes: Soft, Hypoactive Bowel Sounds, Tenderness (left lower quadrant) Musculoskeletal: Yes: WNL Extremities: Yes: WNL Neurological: Yes: Alert, Oriented Psychiatric: Yes: Alert, Oriented Labs: CBC, BMP 11/11/18 13:37 11/11/18 13:37 Imaging - Results Chest X-ray: Report Reviewed, Image Reviewed Cat Scan: Report Reviewed, Image Reviewed Assessment/Plan Problem List - Problems (1) Diverticulitis of intestine with abscess Assessment/Plan: Code(s): K57.80 - DVTRCLI OF INTEST, PART UNSP, W PERF AND ABSCESS W/O BLEED Qualifiers: Diverticulitis site: large intestine Diverticulitis bleeding: without bleeding Qualified Code(s): K57.20 - Diverticulitis of large intestine with perforation and abscess without bleeding (2) LLQ abdominal pain Code(s): R10.32 - LEFT LOWER QUADRANT PAIN (3) Nausea vomiting and diarrhea Code(s): R11.2 - NAUSEA WITH VOMITING, UNSPECIFIED; R19.7 - DIARRHEA, UNSPECIFIED (4) Panic anxiety syndrome Code(s): F41.0 - PANIC DISORDER [EPISODIC PAROXYSMAL ANXIETY] plan will start patient on abx surgery to see npo hydration rest as per the team
--- NOTE | 2018-11-11 20:42 | CONSULT ---
Consult Consult Specialty:: General Surgery Reason for Consultation:: diverticulitis - History of Present Illness Chief Complaint: LLQ abdominal pain History of Present Illness: 48 yo male with a PMH significant for idiopathic angioedema, renal calculi ( remote), and depression/anxiety. Presents today to the ED with a complaint of constant left lower quadrant abdominal pain. The patient was seen here on for similar symptoms and was diagnosed with diverticulitis and sent home with prescriptions for cipro and metronidazole. The patient states that once the pain medications wore off on Saturday, that the pain came back like crazy. He explains that the pain has been progressively getting worse and is exacerbated upon exertion. Patient notes that he has not been able to keep anything down. He reports chills, subjective fever, and hematuria. - History Source History Provided By: Patient, Medical Record Limitations to Obtaining History: No Limitations - Alcohol/Substance Use Hx Alcohol Use: No - Smoking History Smoking history: Never smoked Have you smoked in the past 12 months: No Aproximately how many cigarettes per day: 0 Home Medications - Allergies Allergies/Adverse Reactions: Allergies Allergy/AdvReac Type Severity Reaction Status Date / Time No Known Allergies Allergy Verified 11/11/18 13:26 - Home Medications Home Medications: Ambulatory Orders Ciprofloxacin [Cipro -] 500 mg PO Q12H #20 tablet 11/09/18 Clonazepam [Klonopin] 1 mg PO ASDIR PRN 11/09/18 Fluoxetine HCl [Prozac] 20 mg PO DAILY 11/09/18 Oxycodone HCl 10 mg PO QID PRN #12 tablet MDD 4 11/09/18 metroNIDAZOLE [Flagyl -] 500 mg PO DAILY #20 tablet 11/09/18 Trazodone HCl 150 mg PO HS PRN 11/11/18 Review of Systems - Review of Systems Constitutional: denies: Chills, Fever, Night Sweats Eyes: denies: Recent Change in Vision HENT: denies: Difficult Swallowing, Throat Pain Neck: denies: Pain on Movement, Tenderness Cardiovascular: denies: Chest Pain, Palpitations Respiratory: denies: Cough, Exercise Intolerance, SOB Gastrointestinal: reports: Abdominal Pain. denies: Constipation Genitourinary: denies: Dysuria, Lesions, Menses Breasts: reports: No Symptoms Reported. denies: Pain Musculoskeletal: denies: Muscle Pain, Muscle Cramps Integumentary: denies: Bruising, Pallor Neurological: denies: Change in LOC, Numbness, Unsteady Gait Endocrine: denies: Unexplained Weight Gain, Unexplained Weight Loss Hematology/Lymphatic: denies: Easily Bruised, Excessive Bleeding Physical Exam Vital Signs: Vital Signs Temperature 98.7 F 11/11/18 19:00 Pulse Rate 77 11/11/18 19:00 Respiratory Rate 18 11/11/18 19:00 Blood Pressure 121/68 11/11/18 19:00 O2 Sat by Pulse Oximetry (%) 99 11/11/18 19:00 Constitutional: Yes: Well Nourished, Calm, Moderate Distress (doubled over laying on right side (left side up)) Eyes: Yes: Conjunctiva Clear, EOM Intact HENT: Yes: Atraumatic, Normocephalic Neck: Yes: Supple, Trachea Midline Cardiovascular: Yes: Regular Rate and Rhythm, S1, S2 Respiratory: Yes: Regular, CTA Bilaterally Gastrointestinal: Yes: Normal Bowel Sounds, Soft, Tenderness (LLQ). No: Abdomen , Obese, Tenderness, Epigastrium, Tenderness, Rebound, Vomiting ...Rectal Exam: Yes: Sphincter Tone Normal. No: Mass Renal/: No: CVA Tenderness - Left, CVA Tenderness - Right Breast(s): No: Dimpling, Discharge from Nipple, Nipple Inversion Musculoskeletal: No: Muscle Pain, Muscle Weakness Extremities: No: Cool, Cyanosis Edema: No Peripheral Pulses WNL: Yes Integumentary: No: Jaundice, Rash, Skin Tear Neurological: Yes: Alert, Oriented Psychiatric: Yes: Alert, Oriented Labs: CBC, BMP 11/11/18 13:37 11/11/18 13:37 Imaging - Results Cat Scan: Report Reviewed, Image Reviewed (sigmoid diverticulitis with adjacet abscess) Problem List - Problems (1) Diverticulitis of intestine with abscess Assessment/Plan: 48yo male with first episode of complicated (with abscess) diverticulitis. he was offered Elective colectomy given level of colectomy but was not interested. No acute surgical intervention NPO and IVF hydration until pain free GI for followup colonoscopy in 6-8weeks IV antibiotics IR evaluation for drainage of abscess surgical follow-up if desired recall as needed Thank you for the opportunity to participate in the care of this patient. Code(s): K57.80 - DVTRCLI OF INTEST, PART UNSP, W PERF AND ABSCESS W/O BLEED Qualifiers: Diverticulitis site: large intestine Diverticulitis bleeding: without bleeding Qualified Code(s): K57.20 - Diverticulitis of large intestine with perforation and abscess without bleeding (2) LLQ abdominal pain Code(s): R10.32 - LEFT LOWER QUADRANT PAIN (3) Nausea vomiting and diarrhea Code(s): R11.2 - NAUSEA WITH VOMITING, UNSPECIFIED; R19.7 - DIARRHEA, UNSPECIFIED (4) Panic anxiety syndrome Code(s): F41.0 - PANIC DISORDER [EPISODIC PAROXYSMAL ANXIETY]
[2018-11-11 21:52] VITALS: BMI 27.2
[2018-11-11] MEDS ORDERED: PIPERACILLIN/TAZOB 4.5 GM 4.5 GM in DEXTROSE 5%-WATER 100 ML IVPB SCH (22:00)
[2018-11-11] MEDS ORDERED: DEXAMETHASONE SOD PHOSPHATE 10 MG/1 ML VIAL IVPUSH ONE (22:05)
[2018-11-12] MEDS ORDERED: PIPERACILLIN/TAZOBACTAM 3.375 GM VIAL IVPB ONE ×3 (01:09→18:00)
[2018-11-12] MEDS ORDERED: DEXTROSE 5%-WATER - 50 ML IVPB ONE ×3 (01:09→18:01)
[2018-11-12] MEDS: PIPERACILLIN/TAZOB 3.375 GM 3.375 GM in DEXTROSE 5%-WATER - 50 ML IVPB SCH ×3 (01:20→18:12)
[2018-11-12 08:03] LABS: BASO % 0.1 % (0-2.0); EOS % 0.1 % (0-4.5); HEMATOCRIT 40.5 % (35.4-49); HEMOGLOBIN 13.4 GM/dl (11.7-16.9); LYMPH % 5.8 % (8-40); MCH 28.5 pg (25.7-33.7); MEAN CELL VOLUME 86.2 fl (80-96); MEAN PLT VOLUME 9.1 fl (7.5-11.1); MONO % 1.1 % (3.8-10.2); NEUT % 92.9 % (42.8-82.8); PLATELET COUNT 173 K/MM3 (134-434); RBC 4.69 M/mm3 (4.00-5.60); RDW 11.8 % (11.9-15.9); WHITE BLOOD COUNT 5.4 K/mm3 (4.0-10.8)
[2018-11-12 08:40] LABS: ALBUMIN 3.2 g/dl (3.4-5.0); ALK PHOS 58 U/L (45-117); ANION GAP 8 MMOL/L (8-16); BLOOD UREA NITROGEN 14 mg/dl (7-18); CALCIUM 8.5 mg/dl (8.5-10); CHLORIDE 106 mmol/L (98-107); CO2 21 mmol/L (21-32); GLUCOSE,RANDOM 124 mg/dl (74-106); MAGNESIUM 1.7 mg/dL (1.8-2.4); POTASSIUM 4.3 mmol/L (3.5-5.1); SGOT/AST 11 U/L (15-37); SGPT/ALT 9 U/L (13-61); SODIUM 135 mmol/L (136-145); TOT PROT 6.2 g/dl (6.4-8.2)
[2018-11-12] MEDS: FLUoxetine HCL 20 MG CAPSULE (FP) PO SCH (09:28)
[2018-11-12] MEDS ORDERED: ENOXAPARIN NA (PORCINE) 40 MG/0.4 ML DISP.SYRIN SQ SCH (10:00)
--- NOTE | 2018-11-12 11:02 | EKG ---
Test Reason : Blood Pressure : / mmHG Vent. Rate : 061 BPM Atrial Rate : 061 BPM P-R Int : 162 ms QRS Dur : 084 ms QT Int : 418 ms P-R-T Axes : 040 013 009 degrees QTc Int : 420 ms NORMAL SINUS RHYTHM NORMAL ECG NO PREVIOUS ECGS AVAILABLE Confirmed by AZUL BERMUDEZ, ROWDY ([id number]) on 11/12/2018 11:02:26 AM Referred By: Mynor Coats Confirmed By:ROWDY LIANG MD
--- NOTE | 2018-11-12 16:04 | PN ---
Progress Note, Physician History of Present Illness: lynne feeling much better abd pain has improved - Current Medication List Current Medications: Active Medications Acetaminophen (Ofirmev Injection -) 1,000 mg IVPB Q6H PRN PRN Reason: PAIN LEVEL 1-5 Clonazepam (Klonopin -) 1 mg PO Q8H PRN PRN Reason: ANXIETY Fluoxetine HCl (Prozac -) 20 mg PO DAILY RAHUL Last Admin: 11/12/18 09:28 Dose: 20 mg Sodium Chloride (Normal Saline -) 1,000 mls @ 150 mls/hr IV ASDIR RAHUL Last Admin: 11/11/18 16:10 Dose: 150 mls/hr Piperacillin Sod/Tazobactam (Sod 3.375 gm/ Dextrose) 50 mls @ 100 mls/hr IVPB Q8H-IV RAHUL; Protocol Last Admin: 11/12/18 09:29 Dose: 100 mls/hr Morphine Sulfate (Morphine Sulfate) 4 mg IVPUSH Q6H PRN PRN Reason: PAIN LEVEL 6-10 Ondansetron HCl (Zofran Injection) 4 mg IVPUSH Q6H PRN PRN Reason: NAUSEA Trazodone HCl (Desyrel -) 150 mg PO HS PRN PRN Reason: ANXIETY - Objective Vital Signs: Vital Signs Temperature 99.2 F 11/12/18 14:12 Pulse Rate 74 11/12/18 14:12 Respiratory Rate 18 11/12/18 14:12 Blood Pressure 119/68 11/12/18 14:12 O2 Sat by Pulse Oximetry (%) 99 11/12/18 14:12 Constitutional: Yes: Calm, Mild Distress Cardiovascular: Yes: Regular Rate and Rhythm Respiratory: Yes: Regular, CTA Bilaterally Gastrointestinal: Yes: Hypoactive Bowel Sounds, Tenderness (llq improving) Musculoskeletal: Yes: WNL Extremities: Yes: WNL Neurological: Yes: Alert, Oriented Psychiatric: Yes: Alert, Oriented Labs: CBC, BMP 11/12/18 07:10 11/12/18 07:10 INR, PTT INR 1.34 (0.82-1.09) H 11/11/18 14:00 Assessment/Plan Problem List - Problems (1) Diverticulitis of intestine with abscess Assessment/Plan: Code(s): K57.80 - DVTRCLI OF INTEST, PART UNSP, W PERF AND ABSCESS W/O BLEED Qualifiers: Diverticulitis site: large intestine Diverticulitis bleeding: without bleeding Qualified Code(s): K57.20 - Diverticulitis of large intestine with perforation and abscess without bleeding (2) LLQ abdominal pain Code(s): R10.32 - LEFT LOWER QUADRANT PAIN (3) Nausea vomiting and diarrhea Code(s): R11.2 - NAUSEA WITH VOMITING, UNSPECIFIED; R19.7 - DIARRHEA, UNSPECIFIED (4) Panic anxiety syndrome Code(s): F41.0 - PANIC DISORDER [EPISODIC PAROXYSMAL ANXIETY] plan we will continue with abx hydration rest as per the team monitor pain
[2018-11-12] MEDS: SODIUM CHLORIDE 1,000 ML IV SCH (16:29)
[2018-11-12] MEDS: ACETAMINOPHEN 1000 MG/100 ML VIAL (NON FORMULARY) IVPB PRN (16:29)
--- NOTE | 2018-11-12 16:46 | PN ---
Physical Exam: SUBJECTIVE: Patient seen and examined at bedside. Feels much better. LLQ pain almost completely resolved. Ambulating in hallway. OBJECTIVE: Vital Signs Period Temp Pulse Resp BP Sys/Domingo Pulse Ox Last 24 Hr 98.3 F-99.2 F 66-77 16-18 114-125/65-76 96-99 GENERAL: Awake, alert, and fully oriented; no apparent distress LUNGS: Breath sounds equal, clear to auscultation bilaterally. No wheezes, and no crackles. No accessory muscle use. HEART: Regular rate and rhythm,S1 and S2 ABDOMEN: Soft, mild LLQ tenderness, normoactive bowel sounds MUSCULOSKELETAL: Normal range of motion at all joints. No bony deformities or tenderness. No CVA tenderness. UPPER EXTREMITIES: 2+ pulses, warm, well-perfused. No cyanosis. No clubbing. No peripheral edema. LOWER EXTREMITIES: 2+ pulses, warm, well-perfused. No calf tenderness. No peripheral edema. NEUROLOGICAL: Cranial nerves II-XII intact. Normal speech. SKIN: Welt on left hip resolved Laboratory Results - last 24 hr 11/11/18 11/11/18 11/12/18 14:00 14:30 07:10 WBC 5.4 RBC 4.69 Hgb 13.4 Hct 40.5 MCV 86.2 MCH 28.5 MCHC 33.0 RDW 11.8 L Plt Count 173 MPV 9.1 Absolute Neuts (auto) 5.0 Neutrophils % 92.9 H Lymphocytes % 5.8 L D Monocytes % 1.1 L D Eosinophils % 0.1 D Basophils % 0.1 Sodium Potassium Chloride Carbon Dioxide Anion Gap BUN Creatinine Creat Clearance w eGFR Random Glucose Calcium Magnesium Total Bilirubin AST ALT Alkaline Phosphatase Total Protein Albumin Urine RBC 2-5 Urine WBC 0-2 Urine Bacteria 1+ Blood Type A POSITIVE Antibody Screen Negative 11/12/18 07:10 WBC RBC Hgb Hct MCV MCH MCHC RDW Plt Count MPV Absolute Neuts (auto) Neutrophils % Lymphocytes % Monocytes % Eosinophils % Basophils % Sodium 135 L Potassium 4.3 Chloride 106 Carbon Dioxide 21 Anion Gap 8 BUN 14 Creatinine 1.0 Creat Clearance w eGFR 80.09 Random Glucose 124 H Calcium 8.5 Magnesium 1.7 L Total Bilirubin 1.0 AST 11 L ALT 9 L Alkaline Phosphatase 58 Total Protein 6.2 L Albumin 3.2 L Urine RBC Urine WBC Urine Bacteria Blood Type Antibody Screen Active Medications Generic Name Dose Route Start Last Admin Trade Name Freq PRN Reason Stop Dose Admin Acetaminophen 1,000 mg 11/11/18 20:22 11/12/18 16:29 Ofirmev Injection - IVPB 1,000 mg Q6H PRN Administration PAIN LEVEL 1-5 Clonazepam 1 mg 11/11/18 20:09 Klonopin - PO Q8H PRN ANXIETY Fluoxetine HCl 20 mg 11/12/18 10:00 11/12/18 09:28 Prozac - PO 20 mg DAILY RAHUL Administration Sodium Chloride 1,000 mls @ 150 mls/hr 11/11/18 15:45 11/12/18 16:29 Normal Saline - IV 150 mls/hr ASDIR RAHUL Administration Piperacillin Sod/Tazobactam 50 mls @ 100 mls/hr 11/12/18 02:00 11/12/18 09:29 Sod 3.375 gm/ Dextrose IVPB 100 mls/hr Q8H-IV RAHUL Administration Protocol Morphine Sulfate 4 mg 11/11/18 20:17 Morphine Sulfate IVPUSH Q6H PRN PAIN LEVEL 6-10 Ondansetron HCl 4 mg 11/11/18 17:13 Zofran Injection IVPUSH Q6H PRN NAUSEA Trazodone HCl 150 mg 11/11/18 20:07 Desyrel - PO HS PRN ANXIETY ASSESSMENT/PLAN 48 year-old male with a PMH significant for idiopathic angioedema, renal calculi (remote), and depression/anxiety. Diagnosed with acute diverticultits of the sigmoid on 11/09. Failed PO antibiotics. Admitted for acute diverticulitis with abscess. Acute diverticultitis sigmoid colon with abscess --11/11 CTAP: since 11/09, interval development of 2.4 x 0.8cm abscess upper third of sigmoid; small pocket intraluminal air; interval development of small bowel dilitation c/w ileus v. partial SBO --continue Zosyn (day #2) --IV fluids --ID consult --surgical consult: patient elects conservative management for now --IR consult for possible abscess drainage Depression/anxiety Idiopathic angioedema triggered by stress --episode of extreme stress in ED-->new welt on left hip->decadron IVP x 10mg -->welt resolved --continue Prozac, lorazepam, trazadone FEN Fluids: D51/2@100mL/hr Electrolytes: replete as indicated Nutrition: NPO DVT prophylaxis: subq lovenox; oob, ambulation Dispo: continues to require inpatient care. Full code. Visit type - Emergency Visit Emergency Visit: Yes ED Registration Date: 11/11/18 Care time: The patient presented to the Emergency Department on the above date and was hospitalized for further evaluation of their emergent condition. - New Patient This patient is new to me today: No - Critical Care Critical Care patient: No
[2018-11-12] MEDS ORDERED: DEXTROSE 5%-0.45% SALINE 1,000 ML IV SCH (22:00)
[2018-11-13] MEDS: ENOXAPARIN NA (PORCINE) 40 MG/0.4 ML DISP.SYRIN SQ SCH ×2 (00:36→09:36)
[2018-11-13] MEDS ORDERED: PIPERACILLIN/TAZOBACTAM 3.375 GM VIAL IVPB ONE ×3 (01:04→17:56)
[2018-11-13] MEDS ORDERED: DEXTROSE 5%-WATER - 50 ML IVPB ONE ×3 (01:04→17:56)
[2018-11-13] MEDS: PIPERACILLIN/TAZOB 3.375 GM 3.375 GM in DEXTROSE 5%-WATER - 50 ML IVPB SCH ×3 (02:00→18:52)
[2018-11-13] MEDS: ACETAMINOPHEN 1000 MG/100 ML VIAL (NON FORMULARY) IVPB PRN (06:31)
[2018-11-13 08:20] LABS: BASO % 0.1 % (0-2.0); EOS % 0.6 % (0-4.5); HEMATOCRIT 35.5 % (35.4-49); HEMOGLOBIN 11.9 GM/dl (11.7-16.9); LYMPH % 15.8 % (8-40); MCH 28.8 pg (25.7-33.7); MCHC 33.5 g/dl (32.0-35.9); MEAN CELL VOLUME 86.1 fl (80-96); MEAN PLT VOLUME 9.3 fl (7.5-11.1); MONO % 9.1 % (3.8-10.2); NEUT % 74.4 % (42.8-82.8); PLATELET COUNT 141 K/MM3 (134-434); RBC 4.13 M/mm3 (4.00-5.60)
[2018-11-13 08:46] LABS: ALBUMIN 2.7 g/dl (3.4-5.0); ALK PHOS 45 U/L (45-117); ANION GAP 5 MMOL/L (8-16); BILIRUBIN,TOTAL 0.9 mg/dl (0.2-1); BLOOD UREA NITROGEN 13 mg/dl (7-18); CALCIUM 8.1 mg/dl (8.5-10); CHLORIDE 107 mmol/L (98-107); CO2 25 mmol/L (21-32); CREATININE 0.8 mg/dl (0.55-1.3); GLUCOSE,RANDOM 127 mg/dl (74-106); MAGNESIUM 1.8 mg/dL (1.8-2.4); POTASSIUM 3.6 mmol/L (3.5-5.1); SGOT/AST 11 U/L (15-37); SGPT/ALT 8 U/L (13-61); SODIUM 137 mmol/L (136-145); TOT PROT 5.2 g/dl (6.4-8.2)
[2018-11-13] MEDS: FLUoxetine HCL 20 MG CAPSULE (FP) PO SCH (09:35)
[2018-11-13] MEDS ORDERED: POTASSIUM CHLORIDE TABS 20 MEQ TABLET.ER (FP) PO ONE (13:15)
--- NOTE | 2018-11-13 15:36 | PN ---
Physical Exam: SUBJECTIVE: Patient seen and examined at bedside. Pain almost completely resolved. No nausea vomiting. OBJECTIVE: Vital Signs Period Temp Pulse Resp BP Sys/Domingo Pulse Ox Last 24 Hr 97.8 F-98.7 F 54-77 14-18 105-121/52-70 97-99 GENERAL: Awake, alert, and fully oriented; no apparent distress LUNGS: Breath sounds equal, clear to auscultation bilaterally. No wheezes, and no crackles. No accessory muscle use. HEART: Regular rate and rhythm,S1 and S2 ABDOMEN: Soft, mild LLQ tenderness, normoactive bowel sounds MUSCULOSKELETAL: Normal range of motion at all joints. No bony deformities or tenderness. No CVA tenderness. UPPER EXTREMITIES: 2+ pulses, warm, well-perfused. No cyanosis. No clubbing. No peripheral edema. LOWER EXTREMITIES: 2+ pulses, warm, well-perfused. No calf tenderness. No peripheral edema. NEUROLOGICAL: Cranial nerves II-XII intact. Normal speech. SKIN: Welt on left hip resolved Laboratory Results - last 24 hr 11/13/18 11/13/18 07:06 07:06 WBC 6.0 RBC 4.13 Hgb 11.9 Hct 35.5 MCV 86.1 MCH 28.8 MCHC 33.5 RDW 12.0 Plt Count 141 MPV 9.3 Absolute Neuts (auto) 4.5 Neutrophils % 74.4 Lymphocytes % 15.8 D Monocytes % 9.1 D Eosinophils % 0.6 D Basophils % 0.1 Sodium 137 Potassium 3.6 Chloride 107 Carbon Dioxide 25 Anion Gap 5 L BUN 13 Creatinine 0.8 Creat Clearance w eGFR 103.62 Random Glucose 127 H Calcium 8.1 L Magnesium 1.8 Total Bilirubin 0.9 AST 11 L ALT 8 L Alkaline Phosphatase 45 D Total Protein 5.2 L Albumin 2.7 L Active Medications Generic Name Dose Route Start Last Admin Trade Name Freq PRN Reason Stop Dose Admin Acetaminophen 1,000 mg 11/11/18 20:22 11/13/18 06:31 Ofirmev Injection - IVPB 1,000 mg Q6H PRN Administration PAIN LEVEL 1-5 Clonazepam 1 mg 11/11/18 20:09 Klonopin - PO Q8H PRN ANXIETY Enoxaparin Sodium 40 mg 11/12/18 22:00 11/13/18 09:36 Lovenox - SQ 40 mg DAILY RAHUL Administration Fluoxetine HCl 20 mg 11/12/18 10:00 11/13/18 09:35 Prozac - PO 20 mg DAILY RAHUL Administration Piperacillin Sod/Tazobactam 50 mls @ 100 mls/hr 11/12/18 02:00 11/13/18 09:37 Sod 3.375 gm/ Dextrose IVPB 100 mls/hr Q8H-IV RAHUL Administration Protocol Dextrose/Sodium Chloride 1,000 mls @ 100 mls/hr 11/12/18 22:00 11/13/18 00:36 D5-1/2ns - IV 100 mls/hr ASDIR RAHUL Administration Morphine Sulfate 4 mg 11/11/18 20:17 Morphine Sulfate IVPUSH Q6H PRN PAIN LEVEL 6-10 Ondansetron HCl 4 mg 11/11/18 17:13 Zofran Injection IVPUSH Q6H PRN NAUSEA Trazodone HCl 150 mg 11/11/18 20:07 11/12/18 21:35 Desyrel - PO 150 mg HS PRN Administration ANXIETY ASSESSMENT/PLAN: 48 year-old male with a PMH significant for idiopathic angioedema, renal calculi (remote), and depression/anxiety. Diagnosed with acute diverticultits of the sigmoid on 11/09. Failed PO antibiotics. Admitted for acute diverticulitis with abscess. Acute diverticultitis sigmoid colon with abscess --11/11 CTAP: since 11/09, interval development of 2.4 x 0.8cm abscess upper third of sigmoid; small pocket intraluminal air; interval development of small bowel dilitation c/w ileus v. partial SBO --continue Zosyn (day #2) --ID following --surgical consult: patient elects for conservative management --IR viewed images, abscess too small for drainage Depression/anxiety Idiopathic angioedema triggered by stress --episode of extreme stress in ED-->new welt on left hip->decadron IVP x 10mg -->welt resolved --continue Prozac, lorazepam PRN, trazadone FEN Fluids: PO intake adequate Electrolytes: replete as indicated Nutrition: full liquids for dinner, advance diet as tolerated DVT prophylaxis: subq lovenox; oob, ambulation Dispo: continues to require inpatient care. Full code. Visit type - Emergency Visit Emergency Visit: Yes ED Registration Date: 11/11/18 Care time: The patient presented to the Emergency Department on the above date and was hospitalized for further evaluation of their emergent condition. - New Patient This patient is new to me today: No - Critical Care Critical Care patient: No
--- NOTE | 2018-11-13 17:59 | PN ---
Progress Note, Physician History of Present Illness: patient stable still pain but improving - Current Medication List Current Medications: Active Medications Acetaminophen (Ofirmev Injection -) 1,000 mg IVPB Q6H PRN PRN Reason: PAIN LEVEL 1-5 Last Admin: 11/13/18 06:31 Dose: 1,000 mg Clonazepam (Klonopin -) 1 mg PO Q8H PRN PRN Reason: ANXIETY Enoxaparin Sodium (Lovenox -) 40 mg SQ DAILY [facility] Last Admin: 11/13/18 09:36 Dose: 40 mg Fluoxetine HCl (Prozac -) 20 mg PO DAILY [facility] Last Admin: 11/13/18 09:35 Dose: 20 mg Piperacillin Sod/Tazobactam (Sod 3.375 gm/ Dextrose) 50 mls @ 100 mls/hr IVPB Q8H-IV RAHUL; Protocol Last Admin: 11/13/18 09:37 Dose: 100 mls/hr Morphine Sulfate (Morphine Sulfate) 4 mg IVPUSH Q6H PRN PRN Reason: PAIN LEVEL 6-10 Ondansetron HCl (Zofran Injection) 4 mg IVPUSH Q6H PRN PRN Reason: NAUSEA Trazodone HCl (Desyrel -) 150 mg PO HS PRN PRN Reason: ANXIETY Last Admin: 11/12/18 21:35 Dose: 150 mg - Objective Vital Signs: Vital Signs Temperature 97.8 F 11/13/18 14:00 Pulse Rate 55 L 11/13/18 14:00 Respiratory Rate 18 11/13/18 14:00 Blood Pressure 121/67 11/13/18 14:00 O2 Sat by Pulse Oximetry (%) 97 11/13/18 14:00 Constitutional: Yes: No Distress, Calm Cardiovascular: Yes: Regular Rate and Rhythm Respiratory: Yes: Regular, CTA Bilaterally Gastrointestinal: Yes: Soft, Hypoactive Bowel Sounds, Tenderness Musculoskeletal: Yes: WNL Extremities: Yes: WNL Neurological: Yes: Alert, Oriented Psychiatric: Yes: Alert, Oriented Labs: CBC, BMP 11/13/18 07:06 11/13/18 07:06 INR, PTT INR 1.34 (0.82-1.09) H 11/11/18 14:00 Assessment/Plan Problem List - Problems (1) Diverticulitis of intestine with abscess Assessment/Plan: Code(s): K57.80 - DVTRCLI OF INTEST, PART UNSP, W PERF AND ABSCESS W/O BLEED Qualifiers: Diverticulitis site: large intestine Diverticulitis bleeding: without bleeding Qualified Code(s): K57.20 - Diverticulitis of large intestine with perforation and abscess without bleeding (2) LLQ abdominal pain Code(s): R10.32 - LEFT LOWER QUADRANT PAIN (3) Nausea vomiting and diarrhea Code(s): R11.2 - NAUSEA WITH VOMITING, UNSPECIFIED; R19.7 - DIARRHEA, UNSPECIFIED (4) Panic anxiety syndrome Code(s): F41.0 - PANIC DISORDER [EPISODIC PAROXYSMAL ANXIETY] plan continue abx rest as per the team
[2018-11-14] MEDS ORDERED: PIPERACILLIN/TAZOBACTAM 3.375 GM VIAL IVPB ONE ×4 (01:08→23:43)
[2018-11-14] MEDS ORDERED: DEXTROSE 5%-WATER - 50 ML IVPB ONE ×4 (01:09→23:43)
[2018-11-14] MEDS: PIPERACILLIN/TAZOB 3.375 GM 3.375 GM in DEXTROSE 5%-WATER - 50 ML IVPB SCH ×3 (01:13→18:08)
--- NOTE | 2018-11-14 09:28 | PN ---
Physical Exam: SUBJECTIVE: Patient seen and examined at bedside. Some anxiety last night, did not sleep well. +BM, loose but formed stool. Tolerating full liquids. OBJECTIVE: Vital Signs Period Temp Pulse Resp BP Sys/Domingo Pulse Ox Last 24 Hr 97.8 F-99.0 F 54-75 14-20 110-134/65-83 97-100 GENERAL: Awake, alert, and fully oriented; no apparent distress LUNGS: Breath sounds equal, clear to auscultation bilaterally. No wheezes, and no crackles. No accessory muscle use. HEART: Regular rate and rhythm,S1 and S2 ABDOMEN: Soft, persistent LLQ tenderness, normoactive bowel sounds MUSCULOSKELETAL: Normal range of motion at all joints. No bony deformities or tenderness. No CVA tenderness. UPPER EXTREMITIES: 2+ pulses, warm, well-perfused. No cyanosis. No clubbing. No peripheral edema. LOWER EXTREMITIES: 2+ pulses, warm, well-perfused. No calf tenderness. No peripheral edema. NEUROLOGICAL: Cranial nerves II-XII intact. Normal speech. SKIN: warm, dry, normal turgor; no rashes, welts Active Medications Generic Name Dose Route Start Last Admin Trade Name Freq PRN Reason Stop Dose Admin Acetaminophen 1,000 mg 11/11/18 20:22 11/13/18 06:31 Ofirmev Injection - IVPB 1,000 mg Q6H PRN Administration PAIN LEVEL 1-5 Clonazepam 1 mg 11/11/18 20:09 Klonopin - PO Q8H PRN ANXIETY Enoxaparin Sodium 40 mg 11/12/18 22:00 11/13/18 09:36 Lovenox - SQ 40 mg DAILY RAHUL Administration Fluoxetine HCl 20 mg 11/12/18 10:00 11/13/18 09:35 Prozac - PO 20 mg DAILY RAHLU Administration Piperacillin Sod/Tazobactam 50 mls @ 100 mls/hr 11/12/18 02:00 11/14/18 01:13 Sod 3.375 gm/ Dextrose IVPB 100 mls/hr Q8H-IV RAHUL Administration Protocol Morphine Sulfate 4 mg 11/11/18 20:17 Morphine Sulfate IVPUSH Q6H PRN PAIN LEVEL 6-10 Ondansetron HCl 4 mg 11/11/18 17:13 Zofran Injection IVPUSH Q6H PRN NAUSEA Trazodone HCl 150 mg 11/11/18 20:07 11/12/18 21:35 Desyrel - PO 150 mg HS PRN Administration ANXIETY Imaging --11/11 CTAP: since 11/09, interval development of 2.4 x 0.8cm abscess upper third of sigmoid; small pocket intraluminal air; interval development of small bowel dilitation c/w ileus v. partial SBO ASSESSMENT/PLAN 48 year-old male with a PMH significant for idiopathic angioedema, renal calculi (remote), and depression/anxiety. Diagnosed with acute diverticultits of the sigmoid on 11/09. Failed PO antibiotics. Admitted for acute diverticulitis with abscess. Acute diverticultitis sigmoid colon with abscess --clinically improved, afebrile, no leukocytosis; abdominal xray 11/13 much less abdominal distention, no ileus; +BM --continue Zosyn (day #3) --ID following Depression/anxiety Idiopathic angioedema triggered by stress --continue Prozac, lorazepam PRN, trazadone FEN Fluids: PO intake adequate Electrolytes: replete as indicated Nutrition: full liquids DVT prophylaxis: subq lovenox; oob, ambulation Dispo: continues to require inpatient care. Full code. Visit type - Emergency Visit Emergency Visit: Yes ED Registration Date: 11/11/18 Care time: The patient presented to the Emergency Department on the above date and was hospitalized for further evaluation of their emergent condition. - New Patient This patient is new to me today: No - Critical Care Critical Care patient: No
[2018-11-14] MEDS: ENOXAPARIN NA (PORCINE) 40 MG/0.4 ML DISP.SYRIN SQ SCH (09:48)
[2018-11-14] MEDS: FLUoxetine HCL 20 MG CAPSULE (FP) PO SCH (09:48)
[2018-11-14] MEDS: traZODone HCL 50 MG TABLET (FP) PO SCH (21:40)
[2018-11-15] MEDS: PIPERACILLIN/TAZOB 3.375 GM 3.375 GM in DEXTROSE 5%-WATER - 50 ML IVPB SCH ×3 (01:36→17:45)
[2018-11-15] MEDS ORDERED: DEXTROSE 5%-WATER - 50 ML IVPB ONE ×2 (09:26→17:37)
[2018-11-15] MEDS ORDERED: PIPERACILLIN/TAZOBACTAM 3.375 GM VIAL IVPB ONE ×2 (09:26→17:37)
--- NOTE | 2018-11-15 09:28 | PN ---
Physical Exam: SUBJECTIVE: Patient seen and examined, pt tolerating full liquid diet, denies abd pain, non-tender on palpation, +BS, +BM labs ordered for alexander AM OBJECTIVE: Vital Signs Period Temp Pulse Resp BP Sys/Domingo Pulse Ox Last 24 Hr 98.0 F-99.2 F 57-66 18-18 110-135/64-76 97-99 GENERAL: The patient is awake, alert, and fully oriented, in no acute distress. HEAD: Normal with no signs of trauma. EYES: PERRL, extraocular movements intact, sclera anicteric, conjunctiva clear. No ptosis. ENT: Ears normal, nares patent, oropharynx clear without exudates, moist mucous membranes. NECK: Trachea midline, full range of motion, supple. LUNGS: Breath sounds equal, clear to auscultation bilaterally, no wheezes, no crackles, no accessory muscle use. HEART: Regular rate and rhythm, S1, S2 without murmur, rub or gallop. ABDOMEN: Soft, nontender, nondistended, normoactive bowel sounds, no guarding, no rebound, no hepatosplenomegaly, no masses. EXTREMITIES: 2+ pulses, warm, well-perfused, no edema. NEUROLOGICAL: Cranial nerves II through XII grossly intact. Normal speech, gait not observed. PSYCH: Normal mood, normal affect. SKIN: Warm, dry, normal turgor, no rashes or lesions noted Active Medications Generic Name Dose Route Start Last Admin Trade Name Freq PRN Reason Stop Dose Admin Acetaminophen 1,000 mg 11/11/18 20:22 11/13/18 06:31 Ofirmev Injection - IVPB 1,000 mg Q6H PRN Administration PAIN LEVEL 1-5 Clonazepam 1 mg 11/11/18 20:09 Klonopin - PO Q8H PRN ANXIETY Enoxaparin Sodium 40 mg 11/12/18 22:00 11/14/18 09:48 Lovenox - SQ 40 mg DAILY [facility]UL Administration Fluoxetine HCl 20 mg 11/12/18 10:00 11/14/18 09:48 Prozac - PO 20 mg DAILY [facility] Administration Piperacillin Sod/Tazobactam 50 mls @ 100 mls/hr 11/12/18 02:00 11/15/18 01:36 Sod 3.375 gm/ Dextrose IVPB 100 mls/hr Q8H-IV [facility]UL Administration Protocol Ondansetron HCl 4 mg 11/11/18 17:13 Zofran Injection IVPUSH Q6H PRN NAUSEA Trazodone HCl 150 mg 11/14/18 22:00 11/14/18 21:40 Desyrel - PO 150 mg HS RAHUL Administration ASSESSMENT/PLAN: 48 year-old male with a PMH significant for idiopathic angioedema, renal calculi (remote), and depression/anxiety. Diagnosed with acute diverticultits of the sigmoid on 11/09. Failed PO antibiotics. Admitted for acute diverticulitis with abscess. Acute diverticultitis sigmoid colon with abscess-improving --clinically improved, afebrile, no leukocytosis; abdominal xray 11/13 much less abdominal distention, no ileus; +BM --continue Zosyn (day #4) --ID following --full liquid diet Depression/anxiety Idiopathic angioedema triggered by stress --continue Prozac, lorazepam PRN, trazadone FEN Fluids: PO intake adequate Electrolytes: replete as indicated Nutrition: full liquids DVT prophylaxis: subq lovenox; oob, ambulation Dispo: continues to require inpatient care. Full code. Visit type - Emergency Visit Emergency Visit: Yes ED Registration Date: 11/11/18 Care time: The patient presented to the Emergency Department on the above date and was hospitalized for further evaluation of their emergent condition. - New Patient This patient is new to me today: Yes Date on this admission: 11/15/18 - Critical Care Critical Care patient: No
[2018-11-15] MEDS: FLUoxetine HCL 20 MG CAPSULE (FP) PO SCH (10:15)
[2018-11-15] MEDS: ENOXAPARIN NA (PORCINE) 40 MG/0.4 ML DISP.SYRIN SQ SCH (10:16)
--- NOTE | 2018-11-15 10:58 | PN ---
Progress Note, Physician History of Present Illness: still continues to be very tender in left lower quadrant sluggish bowel sounds started on liquids - Current Medication List Current Medications: Active Medications Acetaminophen (Ofirmev Injection -) 1,000 mg IVPB Q6H PRN PRN Reason: PAIN LEVEL 1-5 Last Admin: 11/13/18 06:31 Dose: 1,000 mg Clonazepam (Klonopin -) 1 mg PO Q8H PRN PRN Reason: ANXIETY Enoxaparin Sodium (Lovenox -) 40 mg SQ DAILY [facility] Last Admin: 11/14/18 09:48 Dose: 40 mg Fluoxetine HCl (Prozac -) 20 mg PO DAILY [facility] Last Admin: 11/14/18 09:48 Dose: 20 mg Piperacillin Sod/Tazobactam (Sod 3.375 gm/ Dextrose) 50 mls @ 100 mls/hr IVPB Q8H-IV [facility]; Protocol Last Admin: 11/15/18 01:36 Dose: 100 mls/hr Ondansetron HCl (Zofran Injection) 4 mg IVPUSH Q6H PRN PRN Reason: NAUSEA Trazodone HCl (Desyrel -) 150 mg PO HS [facility] Last Admin: 11/14/18 21:40 Dose: 150 mg - Objective Vital Signs: Vital Signs Temperature 98.5 F 11/15/18 06:24 Pulse Rate 58 L 11/15/18 06:24 Respiratory Rate 18 11/15/18 06:24 Blood Pressure 113/73 11/15/18 06:24 O2 Sat by Pulse Oximetry (%) 99 11/15/18 06:24 Constitutional: Yes: No Distress, Calm Cardiovascular: Yes: Regular Rate and Rhythm Respiratory: Yes: Regular, CTA Bilaterally Gastrointestinal: Yes: Soft, Hypoactive Bowel Sounds, Tenderness (left lower quadrant) Musculoskeletal: Yes: WNL Extremities: Yes: WNL Neurological: Yes: Alert, Oriented Psychiatric: Yes: Alert, Oriented Labs: CBC, BMP 11/13/18 07:06 11/13/18 07:06 INR, PTT INR 1.34 (0.82-1.09) H 11/11/18 14:00 Assessment/Plan Problem List - Problems (1) Diverticulitis of intestine with abscess Assessment/Plan: Code(s): K57.80 - DVTRCLI OF INTEST, PART UNSP, W PERF AND ABSCESS W/O BLEED Qualifiers: Diverticulitis site: large intestine Diverticulitis bleeding: without bleeding Qualified Code(s): K57.20 - Diverticulitis of large intestine with perforation and abscess without bleeding (2) LLQ abdominal pain Code(s): R10.32 - LEFT LOWER QUADRANT PAIN (3) Nausea vomiting and diarrhea Code(s): R11.2 - NAUSEA WITH VOMITING, UNSPECIFIED; R19.7 - DIARRHEA, UNSPECIFIED (4) Panic anxiety syndrome Code(s): F41.0 - PANIC DISORDER [EPISODIC PAROXYSMAL ANXIETY] plan we will continue with abx hydration rest as per the team monitor pain
[2018-11-15] MEDS: traZODone HCL 50 MG TABLET (FP) PO SCH (22:15)
[2018-11-16] MEDS ORDERED: PIPERACILLIN/TAZOBACTAM 3.375 GM VIAL IVPB ONE ×3 (00:36→23:55)
[2018-11-16] MEDS ORDERED: DEXTROSE 5%-WATER - 50 ML IVPB ONE ×3 (00:37→23:55)
[2018-11-16] MEDS: PIPERACILLIN/TAZOB 3.375 GM 3.375 GM in DEXTROSE 5%-WATER - 50 ML IVPB SCH ×3 (02:44→17:28)
[2018-11-16] MEDS: FLUoxetine HCL 20 MG CAPSULE (FP) PO SCH (09:40)
[2018-11-16] MEDS: ENOXAPARIN NA (PORCINE) 40 MG/0.4 ML DISP.SYRIN SQ SCH (09:40)
[2018-11-16 09:43] LABS: BASO % 0.3 % (0-2.0); EOS % 3.7 % (0-4.5); HEMATOCRIT 41.5 % (35.4-49); HEMOGLOBIN 13.6 GM/dl (11.7-16.9); LYMPH % 25.9 % (8-40); MCHC 32.7 g/dl (32.0-35.9); MEAN CELL VOLUME 85.7 fl (80-96); MEAN PLT VOLUME 8.7 fl (7.5-11.1); MONO % 8.2 % (3.8-10.2); NEUT % 61.9 % (42.8-82.8); PLATELET COUNT 197 K/MM3 (134-434); RBC 4.85 M/mm3 (4.00-5.60); RDW 11.7 % (11.9-15.9); WHITE BLOOD COUNT 5.4 K/mm3 (4.0-10.8)
[2018-11-16 09:53] LABS: ALBUMIN 3.1 g/dl (3.4-5.0); ALK PHOS 49 U/L (45-117); ANION GAP 10 MMOL/L (8-16); BLOOD UREA NITROGEN 8 mg/dl (7-18); CALCIUM 8.7 mg/dl (8.5-10); CHLORIDE 101 mmol/L (98-107); CO2 26 mmol/L (21-32); CREATININE 1.1 mg/dl (0.55-1.3); GLUCOSE,RANDOM 86 mg/dl (74-106); POTASSIUM 3.6 mmol/L (3.5-5.1); SGOT/AST 21 U/L (15-37); SGPT/ALT 16 U/L (13-61); SODIUM 137 mmol/L (136-145); TOT PROT 5.8 g/dl (6.4-8.2)
--- NOTE | 2018-11-16 11:26 | PN ---
Physical Exam: SUBJECTIVE: Patient seen and examined. +Bowel movements, soft, brown; +flatus. tempering kiln tender over LLQ, "feels like a deep bruise." OBJECTIVE: Vital Signs Period Temp Pulse Resp BP Sys/Domingo Pulse Ox Last 24 Hr 98.0 F-99.0 F 60-63 16-20 110-135/66-70 97-97 GENERAL: The patient is awake, alert, and fully oriented, in no acute distress. LUNGS: Breath sounds equal, clear to auscultation bilaterally, no wheezes, no crackles, no accessory muscle use. HEART: Regular rate and rhythm, S1, S2 ABDOMEN: Soft, mild LLQ tenderness, normoactive bowel sounds, no guarding, no rebound tenderness EXTREMITIES: 2+ pulses, warm, well-perfused, no edema. NEUROLOGICAL: Cranial nerves II through XII grossly intact. Normal speech, gait not observed. Laboratory Results - last 24 hr 11/16/18 11/16/18 06:15 06:15 WBC 5.4 RBC 4.85 Hgb 13.6 Hct 41.5 D MCV 85.7 MCH 28.0 MCHC 32.7 RDW 11.7 L Plt Count 197 D MPV 8.7 Absolute Neuts (auto) 3.4 Neutrophils % 61.9 Lymphocytes % 25.9 D Monocytes % 8.2 Eosinophils % 3.7 D Basophils % 0.3 Sodium 137 Potassium 3.6 Chloride 101 Carbon Dioxide 26 Anion Gap 10 BUN 8 Creatinine 1.1 Creat Clearance w eGFR 71.75 Random Glucose 86 Calcium 8.7 Total Bilirubin 1.0 AST 21 ALT 16 Alkaline Phosphatase 49 Total Protein 5.8 L Albumin 3.1 L Active Medications Generic Name Dose Route Start Last Admin Trade Name Marcelloq PRN Reason Stop Dose Admin Acetaminophen 1,000 mg 11/11/18 20:22 11/13/18 06:31 Ofirmev Injection - IVPB 1,000 mg Q6H PRN Administration PAIN LEVEL 1-5 Clonazepam 1 mg 11/11/18 20:09 Klonopin - PO Q8H PRN ANXIETY Enoxaparin Sodium 40 mg 11/12/18 22:00 11/16/18 09:40 Lovenox - SQ 40 mg DAILY RAHUL Administration Fluoxetine HCl 20 mg 11/12/18 10:00 11/16/18 09:40 Prozac - PO 20 mg DAILY RAHUL Administration Piperacillin Sod/Tazobactam 50 mls @ 100 mls/hr 11/12/18 02:00 11/16/18 09:40 Sod 3.375 gm/ Dextrose IVPB 100 mls/hr Q8H-IV RAHUL Administration Protocol Ondansetron HCl 4 mg 11/11/18 17:13 Zofran Injection IVPUSH Q6H PRN NAUSEA Trazodone HCl 150 mg 11/14/18 22:00 11/15/18 22:15 Desyrel - PO 150 mg HS RAHUL Administration ASSESSMENT/PLAN Imaging --11/11 CTAP: since 11/09, interval development of 2.4 x 0.8cm abscess upper third of sigmoid; small pocket intraluminal air; interval development of small bowel dilitation c/w ileus v. partial SBO --11/16 CTAP: in comparison to 11/11 study, unchanged 2.4 x 0.8cm abscess; improved pericolonic edema along the upper third of the sigmoid ASSESSMENT/PLAN 48 year-old male with a PMH significant for idiopathic angioedema, renal calculi (remote), and depression/anxiety. Diagnosed with acute diverticultits of the sigmoid on 11/09. Failed PO antibiotics. Admitted for acute diverticulitis with abscess. Acute diverticultitis sigmoid colon with abscess --still with LLQ tenderness and repeat CT today shows abscess unchanged; will make NPO --reviewed by IR who considers abscess too small to drain --discussed with surgery and ID --continue Zosyn (day #4) Depression/anxiety Idiopathic angioedema triggered by stress --continue Prozac, lorazepam PRN, trazadone FEN Fluids: D51/2@125mL/hr Electrolytes: replete as indicated Nutrition: NPO DVT prophylaxis: subq lovenox; oob, ambulation Dispo: continues to require inpatient care. Full code. Visit type - Emergency Visit Emergency Visit: Yes ED Registration Date: 11/11/18 Care time: The patient presented to the Emergency Department on the above date and was hospitalized for further evaluation of their emergent condition. - New Patient This patient is new to me today: No - Critical Care Critical Care patient: No
[2018-11-16] MEDS ORDERED: DEXTROSE 5%-0.45% SALINE 1,000 ML IV SCH ×2 (15:45)
--- NOTE | 2018-11-16 15:53 | PN ---
Progress Note, Physician History of Present Illness: stable still with significant pain but improving comfortable - Current Medication List Current Medications: Active Medications Acetaminophen (Ofirmev Injection -) 1,000 mg IVPB Q6H PRN PRN Reason: PAIN LEVEL 1-5 Last Admin: 11/13/18 06:31 Dose: 1,000 mg Clonazepam (Klonopin -) 1 mg PO Q8H PRN PRN Reason: ANXIETY Enoxaparin Sodium (Lovenox -) 40 mg SQ DAILY [facility] Last Admin: 11/16/18 09:40 Dose: 40 mg Fluoxetine HCl (Prozac -) 20 mg PO DAILY [facility] Last Admin: 11/16/18 09:40 Dose: 20 mg Piperacillin Sod/Tazobactam (Sod 3.375 gm/ Dextrose) 50 mls @ 100 mls/hr IVPB Q8H-IV [facility]; Protocol Last Admin: 11/16/18 09:40 Dose: 100 mls/hr Dextrose/Sodium Chloride (D5-1/2ns -) 1,000 mls @ 125 mls/hr IV ASDIR RAHUL Ondansetron HCl (Zofran Injection) 4 mg IVPUSH Q6H PRN PRN Reason: NAUSEA Trazodone HCl (Desyrel -) 150 mg PO HS [facility] Last Admin: 11/15/18 22:15 Dose: 150 mg - Objective Vital Signs: Vital Signs Temperature 98.4 F 11/16/18 14:25 Pulse Rate 58 L 11/16/18 14:25 Respiratory Rate 18 11/16/18 14:25 Blood Pressure 99/56 L 11/16/18 14:25 O2 Sat by Pulse Oximetry (%) 100 11/16/18 14:25 Constitutional: Yes: Calm, Mild Distress Cardiovascular: Yes: Regular Rate and Rhythm Respiratory: Yes: Regular, CTA Bilaterally Gastrointestinal: Yes: Soft, Hypoactive Bowel Sounds, Tenderness (left lower quadrant) Musculoskeletal: Yes: WNL Extremities: Yes: WNL Neurological: Yes: Alert, Oriented Psychiatric: Yes: Alert, Oriented Labs: CBC, BMP 11/16/18 06:15 11/16/18 06:15 INR, PTT INR 1.34 (0.82-1.09) H 11/11/18 14:00 Assessment/Plan Problem List - Problems (1) Diverticulitis of intestine with abscess Assessment/Plan: Code(s): K57.80 - DVTRCLI OF INTEST, PART UNSP, W PERF AND ABSCESS W/O BLEED Qualifiers: Diverticulitis site: large intestine Diverticulitis bleeding: without bleeding Qualified Code(s): K57.20 - Diverticulitis of large intestine with perforation and abscess without bleeding (2) LLQ abdominal pain Code(s): R10.32 - LEFT LOWER QUADRANT PAIN (3) Nausea vomiting and diarrhea Code(s): R11.2 - NAUSEA WITH VOMITING, UNSPECIFIED; R19.7 - DIARRHEA, UNSPECIFIED (4) Panic anxiety syndrome Code(s): F41.0 - PANIC DISORDER [EPISODIC PAROXYSMAL ANXIETY] plan we will continue with abx hydration rest as per the team monitor pain
--- NOTE | 2018-11-16 16:00 | PN ---
Progress Note, Physician History of Present Illness: patient stable still with pain - Current Medication List Current Medications: Active Medications Acetaminophen (Ofirmev Injection -) 1,000 mg IVPB Q6H PRN PRN Reason: PAIN LEVEL 1-5 Last Admin: 11/13/18 06:31 Dose: 1,000 mg Clonazepam (Klonopin -) 1 mg PO Q8H PRN PRN Reason: ANXIETY Enoxaparin Sodium (Lovenox -) 40 mg SQ DAILY [facility] Last Admin: 11/16/18 09:40 Dose: 40 mg Fluoxetine HCl (Prozac -) 20 mg PO DAILY [facility] Last Admin: 11/16/18 09:40 Dose: 20 mg Piperacillin Sod/Tazobactam (Sod 3.375 gm/ Dextrose) 50 mls @ 100 mls/hr IVPB Q8H-IV [facility]; Protocol Last Admin: 11/16/18 09:40 Dose: 100 mls/hr Dextrose/Sodium Chloride (D5-1/2ns -) 1,000 mls @ 125 mls/hr IV ASDIR RAHUL Ondansetron HCl (Zofran Injection) 4 mg IVPUSH Q6H PRN PRN Reason: NAUSEA Trazodone HCl (Desyrel -) 150 mg PO HS [facility] Last Admin: 11/15/18 22:15 Dose: 150 mg - Objective Vital Signs: Vital Signs Temperature 98.4 F 11/16/18 14:25 Pulse Rate 58 L 11/16/18 14:25 Respiratory Rate 18 11/16/18 14:25 Blood Pressure 99/56 L 11/16/18 14:25 O2 Sat by Pulse Oximetry (%) 100 11/16/18 14:25 Constitutional: Yes: No Distress, Calm Cardiovascular: Yes: Regular Rate and Rhythm Respiratory: Yes: Regular, CTA Bilaterally Gastrointestinal: Yes: Soft, Hypoactive Bowel Sounds, Other Musculoskeletal: Yes: WNL Extremities: Yes: WNL Neurological: Yes: Alert, Oriented Labs: CBC, BMP 11/16/18 06:15 11/16/18 06:15 INR, PTT INR 1.34 (0.82-1.09) H 11/11/18 14:00 Assessment/Plan Problem List - Problems (1) Diverticulitis of intestine with abscess Assessment/Plan: Code(s): K57.80 - DVTRCLI OF INTEST, PART UNSP, W PERF AND ABSCESS W/O BLEED Qualifiers: Diverticulitis site: large intestine Diverticulitis bleeding: without bleeding Qualified Code(s): K57.20 - Diverticulitis of large intestine with perforation and abscess without bleeding (2) LLQ abdominal pain Code(s): R10.32 - LEFT LOWER QUADRANT PAIN (3) Nausea vomiting and diarrhea Code(s): R11.2 - NAUSEA WITH VOMITING, UNSPECIFIED; R19.7 - DIARRHEA, UNSPECIFIED (4) Panic anxiety syndrome Code(s): F41.0 - PANIC DISORDER [EPISODIC PAROXYSMAL ANXIETY] plan continue abx close watch rest as per the team keep liquid diet
[2018-11-16] MEDS: traZODone HCL 50 MG TABLET (FP) PO SCH (21:33)
[2018-11-17] MEDS: PIPERACILLIN/TAZOB 3.375 GM 3.375 GM in DEXTROSE 5%-WATER - 50 ML IVPB SCH ×2 (01:29→10:15)
[2018-11-17] MEDS ORDERED: PIPERACILLIN/TAZOBACTAM 3.375 GM VIAL IVPB ONE ×2 (08:51→18:52)
[2018-11-17] MEDS ORDERED: DEXTROSE 5%-WATER - 50 ML IVPB ONE ×2 (08:52→18:52)
[2018-11-17] MEDS: FLUoxetine HCL 20 MG CAPSULE (FP) PO SCH (10:14)
[2018-11-17] MEDS: ENOXAPARIN NA (PORCINE) 40 MG/0.4 ML DISP.SYRIN SQ SCH (10:14)
--- NOTE | 2018-11-17 14:27 | PN ---
Physical Exam: SUBJECTIVE: Patient seen and examined at bedside. Abdominal pain has resolved. Formed BMs, +flatus. OBJECTIVE: Vital Signs Period Temp Pulse Resp BP Sys/Domingo Pulse Ox Last 24 Hr 97.5 F-99.1 F 58-94 -19 99-124/56-75 98-100 GENERAL: The patient is awake, alert, and fully oriented, in no acute distress. LUNGS: Breath sounds equal, clear to auscultation bilaterally, no wheezes, no crackles, no accessory muscle use. HEART: Regular rate and rhythm, S1, S2 ABDOMEN: Soft, nontender, nondistended, normoactive bowel sounds EXTREMITIES: 2+ pulses, warm, well-perfused, no edema. NEUROLOGICAL: Cranial nerves II through XII grossly intact. Normal speech, steady gait Active Medications Generic Name Dose Route Start Last Admin Trade Name Freq PRN Reason Stop Dose Admin Acetaminophen 1,000 mg 11/11/18 20:22 11/13/18 06:31 Ofirmev Injection - IVPB 1,000 mg Q6H PRN Administration PAIN LEVEL 1-5 Clonazepam 1 mg 11/11/18 20:09 Klonopin - PO Q8H PRN ANXIETY Enoxaparin Sodium 40 mg 11/12/18 22:00 11/17/18 10:14 Lovenox - SQ 40 mg DAILY RAHUL Administration Fluoxetine HCl 20 mg 11/12/18 10:00 11/17/18 10:14 Prozac - PO 20 mg DAILY RAHUL Administration Piperacillin Sod/Tazobactam 50 mls @ 100 mls/hr 11/12/18 02:00 11/17/18 10:15 Sod 3.375 gm/ Dextrose IVPB 100 mls/hr Q8H-IV RA[facility]UL Administration Protocol Dextrose/Sodium Chloride 1,000 mls @ 125 mls/hr 11/16/18 15:45 11/16/18 16:15 D5-1/2ns - IV 125 mls/hr ASDIR RAHUL Administration Ondansetron HCl 4 mg 11/11/18 17:13 Zofran Injection IVPUSH Q6H PRN NAUSEA Trazodone HCl 150 mg 11/14/18 22:00 11/16/18 21:33 Desyrel - PO 150 mg HS RAHUL Administration ASSESSMENT/PLAN Imaging --11/11 CTAP: since 11/09, interval development of 2.4 x 0.8cm abscess upper third of sigmoid; small pocket intraluminal air; interval development of small bowel dilitation c/w ileus v. partial SBO --11/16 CTAP: in comparison to 11/11 study, unchanged 2.4 x 0.8cm abscess; improved pericolonic edema along the upper third of the sigmoid ASSESSMENT/PLAN 48 year-old male with a PMH significant for idiopathic angioedema, renal calculi (remote), and depression/anxiety. Diagnosed with acute diverticultits of the sigmoid on 11/09. Failed PO antibiotics. Admitted for acute diverticulitis with abscess. Acute diverticultitis sigmoid colon with abscess --has been NPO for >24 hours, abdominal pain has resolved --CT reviewed by IR who considers abscess too small to drain --discussed with surgery and ID --continue Zosyn (day #6) --will need colonoscopy in 6 weeks Idiopathic angioedema --discussed with Dr. 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 Full code. Visit type - Emergency Visit Emergency Visit: Yes ED Registration Date: 11/11/18 Care time: The patient presented to the Emergency Department on the above date and was hospitalized for further evaluation of their emergent condition. - New Patient This patient is new to me today: No - Critical Care Critical Care patient: No
[2018-11-17] MEDS ORDERED: DEXTROSE 5%-0.45% SALINE 1,000 ML IV SCH (14:52)
--- NOTE | 2018-11-17 15:43 | PN ---
Progress Note, Physician History of Present Illness: pain improving feeling better - Current Medication List Current Medications: Active Medications Acetaminophen (Ofirmev Injection -) 1,000 mg IVPB Q6H PRN PRN Reason: PAIN LEVEL 1-5 Last Admin: 11/13/18 06:31 Dose: 1,000 mg Clonazepam (Klonopin -) 1 mg PO Q8H PRN PRN Reason: ANXIETY Enoxaparin Sodium (Lovenox -) 40 mg SQ DAILY [facility] Last Admin: 11/17/18 10:14 Dose: 40 mg Fluoxetine HCl (Prozac -) 20 mg PO DAILY [facility] Last Admin: 11/17/18 10:14 Dose: 20 mg Piperacillin Sod/Tazobactam (Sod 3.375 gm/ Dextrose) 50 mls @ 100 mls/hr IVPB Q8H-IV [facility]; Protocol Last Admin: 11/17/18 10:15 Dose: 100 mls/hr Dextrose/Sodium Chloride (D5-1/2ns -) 1,000 mls @ 75 mls/hr IV ASDIR RAHUL Ondansetron HCl (Zofran Injection) 4 mg IVPUSH Q6H PRN PRN Reason: NAUSEA Trazodone HCl (Desyrel -) 150 mg PO HS [facility] Last Admin: 11/16/18 21:33 Dose: 150 mg - Objective Vital Signs: Vital Signs Temperature 99.1 F 11/17/18 14:08 Pulse Rate 70 11/17/18 14:08 Respiratory Rate 17 11/17/18 14:08 Blood Pressure 124/75 11/17/18 14:08 O2 Sat by Pulse Oximetry (%) 100 11/17/18 14:08 Constitutional: Yes: Calm, Mild Distress Cardiovascular: Yes: Regular Rate and Rhythm Respiratory: Yes: Regular, CTA Bilaterally Gastrointestinal: Yes: Soft, Hypoactive Bowel Sounds, Tenderness Musculoskeletal: Yes: WNL Extremities: Yes: WNL Neurological: Yes: Alert, Oriented Psychiatric: Yes: Alert, Oriented Labs: CBC, BMP 11/16/18 06:15 11/16/18 06:15 INR, PTT INR 1.34 (0.82-1.09) H 11/11/18 14:00 Assessment/Plan Problem List - Problems (1) Diverticulitis of intestine with abscess Assessment/Plan: Code(s): K57.80 - DVTRCLI OF INTEST, PART UNSP, W PERF AND ABSCESS W/O BLEED Qualifiers: Diverticulitis site: large intestine Diverticulitis bleeding: without bleeding Qualified Code(s): K57.20 - Diverticulitis of large intestine with perforation and abscess without bleeding (2) LLQ abdominal pain Code(s): R10.32 - LEFT LOWER QUADRANT PAIN (3) Nausea vomiting and diarrhea Code(s): R11.2 - NAUSEA WITH VOMITING, UNSPECIFIED; R19.7 - DIARRHEA, UNSPECIFIED (4) Panic anxiety syndrome Code(s): F41.0 - PANIC DISORDER [EPISODIC PAROXYSMAL ANXIETY] plan continue abx as per surgery and the team
[2018-11-17] MEDS: traZODone HCL 50 MG TABLET (FP) PO SCH (22:51)
[2018-11-18] MEDS ORDERED: PIPERACILLIN/TAZOBACTAM 3.375 GM VIAL IVPB ONE ×2 (00:44→09:26)
[2018-11-18] MEDS ORDERED: DEXTROSE 5%-WATER - 50 ML IVPB ONE ×2 (00:45→09:26)
[2018-11-18] MEDS: PIPERACILLIN/TAZOB 3.375 GM 3.375 GM in DEXTROSE 5%-WATER - 50 ML IVPB SCH ×2 (01:49→09:33)
[2018-11-18] MEDS: ENOXAPARIN NA (PORCINE) 40 MG/0.4 ML DISP.SYRIN SQ SCH (09:33)
[2018-11-18] MEDS: FLUoxetine HCL 20 MG CAPSULE (FP) PO SCH (09:34)
[2018-11-18 14:01] VITALS: BP 141/58; PULSE 63; TEMP 98.7
--- NOTE | 2018-11-18 14:40 | DS ---
Physical Exam: SUBJECTIVE: Patient seen and examined at bedside. Abdominal pain has resolved. Formed BMs, +flatus. OBJECTIVE: Vital Signs Period Temp Pulse Resp BP Sys/Domingo Pulse Ox Last 24 Hr 98.5 F-99.2 F 56-63 17-18 102-141/58-73 98-100 PHYSICAL EXAM GENERAL: The patient is awake, alert, and fully oriented, in no acute distress. LUNGS: Breath sounds equal, clear to auscultation bilaterally, no wheezes, no crackles, no accessory muscle use. HEART: Regular rate and rhythm, S1, S2 ABDOMEN: Soft, nontender, nondistended, normoactive bowel sounds EXTREMITIES: 2+ pulses, warm, well-perfused, no edema. NEUROLOGICAL: Cranial nerves II through XII grossly intact. Normal speech, steady gait LABS CBCD WBC 5.4 K/mm3 (4.0-10.8) 11/16/18 06:15 RBC 4.85 M/mm3 (4.00-5.60) 11/16/18 06:15 Hgb 13.6 GM/dl (11.7-16.9) 11/16/18 06:15 Hct 41.5 % (35.4-49) D 11/16/18 06:15 MCV 85.7 fl (80-96) 11/16/18 06:15 MCHC 32.7 g/dl (32.0-35.9) 11/16/18 06:15 RDW 11.7 % (11.9-15.9) L 11/16/18 06:15 Plt Count 197 K/MM3 (134-434) D 11/16/18 06:15 MPV 8.7 fl (7.5-11.1) 11/16/18 06:15 CMP Sodium 137 mmol/L (136-145) 11/16/18 06:15 Potassium 3.6 mmol/L (3.5-5.1) 11/16/18 06:15 Chloride 101 mmol/L (98-107) 11/16/18 06:15 Carbon Dioxide 26 mmol/L (21-32) 11/16/18 06:15 Anion Gap 10 MMOL/L (8-16) 11/16/18 06:15 BUN 8 mg/dl (7-18) 11/16/18 06:15 Creatinine 1.1 mg/dl (0.55-1.3) 11/16/18 06:15 Creat Clearance w eGFR 71.75 (>60) 11/16/18 06:15 Calcium 8.7 mg/dl (8.5-10) 11/16/18 06:15 Total Bilirubin 1.0 mg/dl (0.2-1) 11/16/18 06:15 AST 21 U/L (15-37) 11/16/18 06:15 ALT 16 U/L (13-61) 11/16/18 06:15 Alkaline Phosphatase 49 U/L (45-117) 11/16/18 06:15 Total Protein 5.8 g/dl (6.4-8.2) L 11/16/18 06:15 Albumin 3.1 g/dl (3.4-5.0) L 11/16/18 06:15 Laboratory Results - last 24 hr 11/17/18 06:50 Complement C4 27 HOSPITAL COURSE: Date of Admission:11/11/18 Date of Discharge: 11/18/18 Imaging 11/11 CTAP: since 11/09, interval development of 2.4 x 0.8cm abscess upper third of sigmoid; small pocket intraluminal air; interval development of small bowel dilitation c/w ileus v. partial SBO 11/16 CTAP: in comparison to 11/11 study, unchanged 2.4 x 0.8cm abscess; improved pericolonic edema along the upper third of the sigmoid Pre hospital course 48 year-old male with a PMH significant for idiopathic angioedema, renal calculi (remote), and depression/anxiety. Presented to the ED with a complaint of constant left lower quadrant abdominal pain. The patient was seen in ED on for similar symptoms and was diagnosed with diverticulitis and sent home with prescriptions for cipro and metronidazole. The patient states that once the pain medications wore off on Saturday, that the pain came back like crazy. He explains that the pain has been progressively getting worse and is exacerbated upon exertion. Patient notes that he has not been able to keep anything down. He reports chills, subjective fever, and hematuria. ER course (1) No fever, no leukocytosis (2) Na 132, K 3.3 Subsequent hospital course 48 year-old male with a PMH significant for idiopathic angioedema, renal calculi (remote), and depression/anxiety. Diagnosed with acute diverticultits of the sigmoid on 11/09. Failed PO antibiotics. Admitted for acute diverticulitis with abscess. Acute diverticultitis sigmoid colon with abscess --afebrile, leukocytosis resolved --CT reviewed by IR who considered abscess too small to drain --followed by surgery and ID --treated with Zosyn x 7 days --diet was advanced, tolerating soft diet at time of discharge --will need repeat CT in 6 weeks and if stable, a followup colonoscopy Idiopathic angioedema --discussed with Dr. 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 Take this medication as directed and be sure to finish all the medication. In 6 weeks you will need to have a repeat CT abdomen/pelvis scan to make sure you are fully recovered from your diverticulitis and abscess. You should have a colonoscopy once you are completely stable. Copies of your lab work have been sent to Dr. Tan Zaragoza, your academic coordinator. You should follow up with him at your earliest convenience. Return to the emergency department for any new or worsening symptoms. Disposition: HOME - Home Medications Comprehensive Discharge Medication List: Ambulatory Orders Clonazepam [Klonopin] 1 mg PO ASDIR PRN 11/09/18 Fluoxetine HCl [Prozac] 20 mg PO DAILY 11/09/18 Trazodone HCl 150 mg PO HS PRN 11/11/18 Amox-Tr/K Cl [Augmentin - 875Mg Tablet] 1 tab PO BID #14 tablet 11/18/18 This patient is new to me today: No Emergency Visit: Yes ED Registration Date: 11/11/18 Care time: The patient presented to the Emergency Department on the above date and was hospitalized for further evaluation of their emergent condition. Critical Care patient: No - Discharge Referral Referred to [facility] Med P.C.: No
== END 2018-11-18 14:18 | disposition home or self-care (01) | DRG 244 ==
LOC: FER 13:22 → FM/S 15:42
PROVIDERS: ADMIT Internal Medicine; ATTEND Nurse Practitioner Acute Care
DX: K57.20 Diverticulitis of large intestine with perforation and abscess without bleeding (principal); N20.0 Calculus of kidney; F41.8 Other specified anxiety disorders; R10.32 Left lower quadrant pain; R11.2 Nausea with vomiting, unspecified; F41.0 Panic disorder [episodic paroxysmal anxiety]
CPT/HCPCS: 36415; 74019-TC-FY; 74176-TC; 74177-TC; 80053; 81003; 81015; 83520; 83690; 83735; 85025; 85610; 86160; 86850; 86900; 86901; 87040; 87086; 93005; 99285-25; J0131; J1100; J7030

== ENCOUNTER 2019-02-19 11:45 | Inpatient (IN) | payer OTHER ==
[2019-02-19] MEDS ORDERED: morphine CARPU-JECT 4 MG/1 ML DISP.SYRIN IVPUSH ONE ×3 (11:48→16:27)
[2019-02-19] MEDS ORDERED: SODIUM CHLORIDE 1,000 ML IV STA ×2 (11:48→16:34)
[2019-02-19] MEDS ORDERED: morphine SULFATE 4 MG/ML VIAL ONE ×4 (11:50→18:37)
[2019-02-19 11:56] LABS: BASO % 0.7 % (0-2.0); EOS % 2.4 % (0-4.5); HEMOGLOBIN 15.5 GM/dl (11.7-16.9); LYMPH % 19.7 % (8-40); MCH 29.3 pg (25.7-33.7); MCHC 33.6 g/dl (32.0-35.9); MEAN CELL VOLUME 87.1 fl (80-96); MEAN PLT VOLUME 8.3 fl (7.5-11.1); MONO % 6.3 % (3.8-10.2); NEUT % 70.9 % (42.8-82.8); PLATELET COUNT 161 K/MM3 (134-434); RBC 5.28 M/mm3 (4.00-5.60); RDW 12.3 % (11.9-15.9); WHITE BLOOD COUNT 7.8 K/mm3 (4.0-10.8)
--- NOTE | 2019-02-19 11:59 | PDOC ---
History of Present Illness - General Chief Complaint: Pain, Acute Stated Complaint: DIVERTICULITIS Time Seen by Provider: 02/19/19 11:47 History Source: Patient, Old Records Exam Limitations: No Limitations - History of Present Illness Initial Comments: 02/19/19 11:56 48-year-old male with history of idiopathic angioedema, renal calculi presents to the emergency department for left lower quadrant pain since last night. Patient reported the pain developed and gradually worsened to an 8 out of 10 intensity. Reported that the pain is constant and pressure in the left lower quadrant pain. Denies any fevers or chills. Denies testicular pain or dysuria. Patient reports that this pain is identical to his previous pain in October when he was admitted for diverticulitis with an abscess. The patient symptoms improved at that time and was discharged and followed up with his gastrologist at [facility]. He subsequently obtained a colonoscopy which was reportedly negative. Because the intensity pain worsened, patient arrived to urged department for further evaluation. Past History - Past Medical History Allergies/Adverse Reactions: Allergies Allergy/AdvReac Type Severity Reaction Status Date / Time No Known Allergies Allergy Verified 02/19/19 11:57 Home Medications: Ambulatory Orders Clonazepam [Klonopin] 0.5 mg PO ASDIR PRN 11/09/18 Fluoxetine HCl [Prozac] 20 mg PO DAILY 11/09/18 Prednisone 5 mg PO PRN 02/19/19 traZODone HCL [Trazodone HCl] 50 mg PO HS 02/19/19 Anemia: No Asthma: No Cancer: No Cardiac Disorders: No CVA: No COPD: No CHF: No Dementia: No Diabetes: No GI Disorders: Yes (DIVERTICULITIS) Disorders: No HTN: No Hypercholesterolemia: No Kidney Stones: Yes Liver Disease: No Psychiatric Problems: Yes (ANXIETY/depression) Seizures: No Thyroid Disease: No - Immunization History Immunization Up to Date: No - Suicide/Smoking/Psychosocial Hx Smoking Status: No Smoking History: Never smoked Have you smoked in the past 12 months: No Number of Cigarettes Smoked Daily: 0 Cigars Per Day: 0 Hx Alcohol Use: No Drug/Substance Use Hx: No Substance Use Type: None Hx Substance Use Treatment: No Review of Systems - Review of Systems Able to Perform ROS?: Yes Comments:: 02/19/19 11:56 GENERAL/CONSTITUTIONAL: [No fever or chills. No weakness. No weight change.] HEAD, EYES, EARS, NOSE AND THROAT: [No change in vision. No ear pain or discharge. No sore throat.] CARDIOVASCULAR: [No chest pain or shortness of breath.] RESPIRATORY: [No cough, wheezing, or hemoptysis.] GASTROINTESTINAL: [No nausea, vomiting, diarrhea or constipation. No rectal bleeding.] + abdominal pain GENITOURINARY: [No dysuria, frequency, or change in urination.] MUSCULOSKELETAL: [No joint or muscle swelling or pain. No neck or back pain.] SKIN AND BREASTS: [No rash or easy bruising.] NEUROLOGIC: [No headache, vertigo, loss of consciousness, or loss of sensation.] PSYCHIATRIC: [No depression or anxiety.] ENDOCRINE: [No increased thirst. No abnormal weight change.] HEMATOLOGIC/LYMPHATIC: [No anemia, easy bleeding, or history of blood clots.] ALLERGIC/IMMUNOLOGIC: [No hives or skin allergy. No latex allergy.] *Physical Exam - Physical Exam Comments: 02/19/19 11:58 GENERAL: Awake, alert, and fully oriented, +uncomfortable appearing HEAD: No signs of trauma EYES: , EOMI, sclera anicteric, conjunctiva clear ENT: Auricles normal inspection, hearing grossly normal, nares patent,Moist mucosa NECK: Normal ROM, supple, LUNGS: Breath sounds equal, clear to auscultation bilaterally. No wheezes, and no crackles HEART: Regular rate and rhythm, normal S1 and S2, no murmurs, rubs or gallops ABDOMEN: TTP LLQ with focal guarding and rebound. EXTREMITIES: Normal range of motion, no edema. No clubbing or cyanosis. No cords, erythema, or tenderness NEUROLOGICAL: Cranial nerves II through XII grossly intact. Normal speech SKIN: Warm, Dry, normal turgor, no rashes or lesions noted. Heart Score/ECG Review #1 ECG reviewed & interpreted by me at: 18:00 02/19/19 18:20 NSR 63, no std/rodolfo, Q wave V1-V2, normal axis, normal intervals, QTC 419 msec ED Treatment Course - LABORATORY CBC & Chemistry Diagram: 02/20/19 06:29 02/20/19 06:29 - RADIOLOGY Radiology Studies Ordered: Category Date Time Status ABDOMEN & PELVIS CT WITH CONTR [CT] Stat CT Scan 02/19/19 11:48 Ordered - Medications Given in the ED: ED Medications Discontinued Medications Generic Name Dose Route Start Last Admin Trade Name José Miguel PRN Reason Stop Dose Admin Morphine Sulfate 4 mg 02/19/19 11:48 02/19/19 11:53 Morphine Injection - IVPUSH 02/19/19 11:49 4 mg ONCE ONE Administration Medical Decision Making - Critical Care Time Total Critical Care Time (minutes): 30 Critical Care Statement: The care of this patient involved high complexity decision making to prevent further life threatening deterioration of the patient 's condition and/or to evaluate & treat vital organ system(s) failure or risk of failure. - Medical Decision Making 02/19/19 11:58 I suspect patient likely has diverticulitis. However, the patient should obtain a CAT scan again pelvis to rule out perforation or abscess formation. We'll obtain labs, give pain control, nothing by mouth, CAT scan and pelvis and reassess. 02/19/19 13:34 CBC, BMP 02/19/19 11:49 02/19/19 11:49 CMP Sodium 137 mmol/L (136-145) 02/19/19 11:49 Potassium 4.2 mmol/L (3.5-5.1) 02/19/19 11:49 Chloride 105 mmol/L (98-107) 02/19/19 11:49 Carbon Dioxide 30 mmol/L (21-32) 02/19/19 11:49 Anion Gap 2 MMOL/L (8-16) L 02/19/19 11:49 BUN 17.3 mg/dL (7-18) 02/19/19 11:49 Creatinine 0.9 mg/dL (0.55-1.3) 02/19/19 11:49 Est GFR (CKD-EPI)AfAm 117.47 02/19/19 11:49 Est GFR (CKD-EPI)NonAf 101.35 02/19/19 11:49 Random Glucose 88 mg/dL (74-106) 02/19/19 11:49 Calcium 8.6 mg/dL (8.5-10.1) 02/19/19 11:49 Total Bilirubin 0.4 mg/dL (0.2-1) 02/19/19 11:49 AST 9 U/L (15-37) L 02/19/19 11:49 ALT 15 U/L (13-61) 02/19/19 11:49 Alkaline Phosphatase 82 U/L (45-117) 02/19/19 11:49 Total Protein 6.7 g/dl (6.4-8.2) 02/19/19 11:49 Albumin 3.5 g/dl (3.4-5.0) 02/19/19 11:49 Urine Test Results Urine Color Yellow 02/19/19 12:55 Urine Appearance Clear 02/19/19 12:55 Urine pH 7.5 (4.5-8) 02/19/19 12:55 Urine Protein Negative (NEGATIVE) 02/19/19 12:55 Urine Glucose (UA) Negative (NEGATIVE) 02/19/19 12:55 Urine Ketones Negative (NEGATIVE) 02/19/19 12:55 Urine Blood Negative (NEGATIVE) 02/19/19 12:55 Urine Nitrite Negative (NEGATIVE) 02/19/19 12:55 Urine Bilirubin Negative (NEGATIVE) 02/19/19 12:55 Ur Leukocyte Esterase Negative (NEGATIVE) 02/19/19 12:55 02/19/19 16:04 Patient's CAT scan is still pending official read. However, there appears to be elements of stranding in the left lower quadrant which is concerning for acute diverticulitis. After discussing with the nurse practitioner, SHERRI izaguirre, for the previous admission to the hospital. The patient has had quite a complicated visit in his previous admission. Patient has had prior abscesses. After talking with the patient, and patient's concerns for his previous visits, decision was made to initiate IV antibiotics, Zosyn, and admit the patient to the hospital for further evaluation and management. 02/19/19 16:39 CT scan demonstrates free air in abdomen. Dr. Tang (surgeon) paged. SHERRI Izaguirre aware. 02/19/19 16:46 Pt is being arranged to be sent to the ICU given this condition. 02/19/19 16:56 02/19/19 17:[address] English. He will staff the case. *DC/Admit/Observation/Transfer Diagnosis at time of Disposition: Acute diverticulitis - Discharge Dispostion Condition at time of disposition: Stable Decision to Admit order: Yes - Referrals - Patient Instructions - Post Discharge Activity
[2019-02-19 13:25] LABS: ALBUMIN 3.5 g/dl (3.4-5.0); BILIRUBIN,TOTAL 0.4 mg/dL (0.2-1); BLOOD UREA NITROGEN 17.3 mg/dL (7-18); CALCIUM 8.6 mg/dL (8.5-10.1); CREATININE 0.9 mg/dL (0.55-1.3); POTASSIUM 4.2 mmol/L (3.5-5.1); TOT PROT 6.7 g/dl (6.4-8.2)
[2019-02-19] MEDS ORDERED: PIPERACILLIN/TAZOB 3.375 GM 3.375 GM in DEXTROSE 5%-WATER - 50 ML IVPB ONE (16:03)
[2019-02-19] MEDS ORDERED: PIPERACILLIN/TAZOBACTAM 3.375 GM VIAL IVPB ONE (16:11)
[2019-02-19] MEDS ORDERED: morphine SULFATE 4 MG/ML VIAL IVPUSH ONE (16:27)
--- NOTE | 2019-02-19 17:00 | HP ---
CHIEF COMPLAINT: Left lower quadrant abdominal pain PCP: Deena Pete [facility] GI: Dr. Stahl [facility] Immunology: Dr. 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 Presented to the ED earlier today for evaluation of LLQ pain that began acutely at 4am this morning. Patient was hospitalized at [place] from 11/11-11/18/18 with diverticulitis with a small abscess. He was treated with IV antibiotics. The abscess was considered too small to drain. Since then, the patient has been in good health, adhering to a strict diet. He had a followup colonoscopy which was unremarkable. Today's pain came on suddenly and severely. CTAP with contrast shows (1) interval development of a small pneumoperitoneum with air seen within the upper abdomen bilaterally; (2) development of two contiguous abscesses (2.3cm, 1.9cm) within the left paracolic space; and (3) pericolonic edema at the level of the upper third of the sigmoid colon c/w acute diverticulitis. Patient denies fever, sweats, chills. 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 Renal calculi (age 22) Depression/anxiety PAST SURGICAL HISTORY: None reported Social History: Smoking: no Alcohol: no Drugs: no Family History: ather age 70 h/o diverticulitis, HTN; mother age 71 with non- Hodgkins lymphoma x 15 years; sister a&w Allergies No Known Allergies Allergy (Verified 02/19/19 11:57) HOME MEDICATIONS: Home Medications Medication Instructions Recorded Clonazepam [Klonopin] 0.5 mg PO ASDIR PRN 11/09/18 Fluoxetine HCl [Prozac] 20 mg PO DAILY 11/09/18 traZODone HCL [Trazodone HCl] 50 mg PO HS 02/19/19 REVIEW OF SYSTEMS CONSTITUTIONAL: Absent: fever, chills, diaphoresis, generalized weakness, malaise, loss of appetite, weight change HEENT: Absent: rhinorrhea, nasal congestion, throat pain, throat swelling, difficulty swallowing, mouth swelling, ear pain, eye pain, visual changes CARDIOVASCULAR: Absent: chest pain, syncope, palpitations, irregular heart rate, lightheadedness , peripheral edema RESPIRATORY: Absent: cough, shortness of breath, dyspnea with exertion, orthopnea, wheezing, stridor, hemoptysis GASTROINTESTINAL: +LLQ pain Absent: abdominal distension, nausea, vomiting, diarrhea, constipation, melena, hematochezia GENITOURINARY: Absent: dysuria, frequency, urgency, hesitancy, hematuria, flank pain, genital pain MUSCULOSKELETAL: Absent: myalgia, arthralgia, joint swelling, back pain, neck pain SKIN: Absent: rash, itching, pallor HEMATOLOGIC/IMMUNOLOGIC: Absent: easy bleeding, easy bruising, lymphadenopathy, frequent infections ENDOCRINE: Absent: unexplained weight gain, unexplained weight loss, heat intolerance, cold intolerance NEUROLOGIC: Absent: headache, focal weakness or paresthesias, dizziness, unsteady gait, seizure, mental status changes, bladder or bowel incontinence PSYCHIATRIC: Absent: anxiety, depression, suicidal or homicidal ideation, hallucinations. PHYSICAL EXAMINATION Vital Signs - 24 hr 02/19/19 02/19/19 02/19/19 11:47 13:00 16:00 Temperature 98.3 F 98.0 F 98.3 F Pulse Rate 69 Pulse Rate [ 66 60 Left Radial] Respiratory 18 16 15 Rate Blood Pressure 126/80 Blood Pressure 107/57 L 104/70 [Right Arm] O2 Sat by Pulse 99 96 96 Oximetry (%) GENERAL: Awake, alert, and fully oriented, in moderate distress secondary to pain. Pale, ill-appearing. HEAD: Normal with no signs of trauma. LUNGS: Breath sounds equal, clear to auscultation bilaterally. No wheezes, and no crackles. No accessory muscle use. HEART: Regular rate and rhythm, normal S1 and S2 ABDOMEN: LLQ tenderness, +guarding +rebound tenderness MUSCULOSKELETAL: Normal range of motion at all joints. No bony deformities or tenderness. No CVA tenderness. UPPER EXTREMITIES: 2+ pulses, warm, well-perfused. No cyanosis. No clubbing. No peripheral edema. LOWER EXTREMITIES: 2+ pulses, warm, well-perfused. No calf tenderness. No peripheral edema. NEUROLOGICAL: Cranial nerves II-XII intact. Normal speech. Laboratory Results - last 24 hr 02/19/19 02/19/19 02/19/19 11:49 11:49 12:55 WBC 7.8 RBC 5.28 Hgb 15.5 Hct 46.0 MCV 87.1 MCH 29.3 MCHC 33.6 RDW 12.3 Plt Count 161 MPV 8.3 Absolute Neuts (auto) 5.5 Neutrophils % 70.9 Lymphocytes % 19.7 D Monocytes % 6.3 Eosinophils % 2.4 Basophils % 0.7 Sodium 137 Potassium 4.2 Chloride 105 Carbon Dioxide 30 Anion Gap 2 L BUN 17.3 Creatinine 0.9 Est GFR (CKD-EPI)AfAm 117.47 Est GFR (CKD-EPI)NonAf 101.35 Random Glucose 88 Calcium 8.6 Total Bilirubin 0.4 AST 9 L ALT 15 Alkaline Phosphatase 82 Total Protein 6.7 Albumin 3.5 Urine Color Yellow Urine Appearance Clear Urine pH 7.5 Urine Protein Negative Urine Glucose (UA) Negative Urine Ketones Negative Urine Blood Negative Urine Nitrite Negative Urine Bilirubin Negative Urine Urobilinogen 0.2 Ur Leukocyte Esterase Negative ASSESSMENT/PLAN 48 year-old male with a PMH significant for diverticulitis, 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 Admitted for acute diverticulitis with multiple abscesses and pneumoperitoneum. Acute diverticulitis Multiple abscesses Pneumoperitoneum --afebrile, no leukocytosis, hemodynamically stable --NS x 2L given, continue NS @125mL/hr --Zosyn and IV metronidazole started; discussed with ID --Dr. Pandey aware, will meet patient at [facility] --morphine for pain Idiopathic angioedema --stable --followed by an assistant manager of operations; for flares at home takes PO levocetirizine and PO prednisone Depression/anxiety --hold PO Prozac, Klonopin, Trazadone --lorazapam IVP 0.5mg q8h PRN FEN Fluids: NS@125mL/hr Electrolytes: replete as indicated Nutrition: NPO DVT prophylaxis: no chemical prophylaxis due to possible surgical intervention; SCDs Dispo: transfer to [facility] for emergent surgical evaluation. Full code. Visit type - Emergency Visit Emergency Visit: Yes Care time: The patient presented to the Emergency Department on the above date and was hospitalized for further evaluation of their emergent condition. - New Patient This patient is new to me today: Yes Date on this admission: 02/19/19 - Critical Care Critical Care patient: Yes Total Critical Care Time (in minutes): 60 Critical Care Statement: The care of this patient involved high complexity decision making to prevent further life threatening deterioration of the patient 's condition and/or to evaluate & treat vital organ system(s) failure or risk of failure.
[2019-02-19] MEDS ORDERED: LORazepam 2 MG/ML SDV VIAL IVPUSH PRN (17:36)
[2019-02-19 17:56] LABS: ACTIVATED PTT 28.1 SECONDS (25.2-36.5)
[2019-02-19 18:01] LABS: INR 1.29 (0.82-1.09); PROTHROMBIN TIME (PATIENT) 14.4 SEC (10.2-13.0)
[2019-02-19] MEDS: MORPHINE SULFATE 2 MG/ML VIAL IVPUSH PRN ×2 (18:40→21:33)
[2019-02-19] MEDS: SODIUM CHLORIDE 1,000 ML IV SCH (20:18)
[2019-02-19] MEDS ORDERED: PIPERACILLIN/TAZOBACTAM 4.5 GM VIAL IVPB ONE (21:02)
[2019-02-19] MEDS ORDERED: DEXTROSE 5%-WATER 100 ML IVPB ONE (21:03)
--- NOTE | 2019-02-19 21:07 | PN ---
Progress Note (short form) - Note Progress Note: Consult Service: ICU Resident PCP: Deena Pete [facility] GI: Dr. Stahl [facility] Immunology: Dr. Tan Zaragoza [facility] HPI: 48yo M with h/o of diverticulosis with previous diverticulitis episodes, prior diverticular perforation who presents today with abdominal pain and NB/NB vomiting. Pt in [place] was noted to pneumoperitoneum on CT scan suspected to be diverticular perforation. We were asked to evaluate the patient for ICU placement given nature of pt's disease process and likely peritonitis/abscess that can develop. Pt currently is is mild to moderate pain and has vomited once more nonbilious nonbloody emesis. Pt otherwise has stable vital signs and able to talk without difficulties. Pt denies any fever/chills currently, nausea, shortness of breath, chest pain/ discomfort, palpitations, previous diarrhea/constipation, previous abdominal surgeries. PE: VS: Afebrile, 67, 127/83, RR 12, 98% on RA GEN: Mild distress, awake, alert and oriented x3 HEENT: NC/AT, EOMI, MIKE, [id number] mucosa NECK: No JVD LUNGS: CTA b/l no wheezes or crackles CARDIAC: RRR, no murmurs ABD: Soft, nondistended, hypoactive BS, tenderness in LLQ, no guarding, minimal rebound noted, no ecchymotic areas noted, no prior surgical scars noted. EXT: No edema, warm, no calf tendernes SKIN: No rashes or lesions noted A/P: Perforated abdominal viscus History of depression/anxiety --Given pt's stability of hemodynamics and clinical exam would recommend keeping on M/S pending surgical evaluation --Agree with ABX choice and continue with Zosyn --Continue with IVF @125cc/hr --monitor hemodynamics and abdominal exam for changes indicative of worsening septic process --Continue Ativan IV PRN for pt's anxiety --Strict NPO --Pain management per primary teams If pt has acute hemodynamic compromise or worsening clinical exam please recall for HLOC. Can monitor LA or VBG for acidemia if question of pt's clinical trend.
[2019-02-19] MEDS ORDERED: CHLORHEXIDINE GLUCONATE 4% CLEANSER FOR DECOLONIZATION TP SCH (22:00)
[2019-02-19] MEDS: PIPERACILLIN/TAZOB 4.5 GM 4.5 GM in DEXTROSE 5%-WATER 100 ML IVPB SCH (22:15)
[2019-02-19] MEDS ORDERED: LORazepam 2 MG/ML SDV VIAL IVPUSH ONE (23:41)
[2019-02-20] MEDS: MORPHINE SULFATE 2 MG/ML VIAL IVPUSH PRN ×2 (02:59→09:27)
[2019-02-20] MEDS ORDERED: PIPERACILLIN/TAZOBACTAM 4.5 GM VIAL IVPB ONE (03:46)
[2019-02-20] MEDS ORDERED: DEXTROSE 5%-WATER 100 ML IVPB ONE (03:47)
[2019-02-20] MEDS: PIPERACILLIN/TAZOB 4.5 GM 4.5 GM in DEXTROSE 5%-WATER 100 ML IVPB SCH (06:34)
--- NOTE | 2019-02-20 07:26 | PN ---
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 Presented to the ED earlier today for evaluation of LLQ pain that began acutely at 4am this morning. Patient was hospitalized at [place] from 11/11-11/18/18 with diverticulitis with a small abscess. He was treated with IV antibiotics. The abscess was considered too small to drain. Since then, the patient has been in good health, adhering to a strict diet. He had a followup colonoscopy which was unremarkable. Today's pain came on suddenly and severely. CTAP with contrast shows (1) interval development of a small pneumoperitoneum with air seen within the upper abdomen bilaterally; (2) development of two contiguous abscesses (2.3cm, 1.9cm) within the left paracolic space; and (3) pericolonic edema at the level of the upper third of the sigmoid colon c/w acute diverticulitis. Patient denies fever, sweats, chills. - Current Medication List Current Medications: Active Medications Chlorhexidine Gluconate (Hibiclens For Decolonization -) 1 applic TP HS RAHUL Piperacillin Sod/Tazobactam (Sod 4.5 gm/ Dextrose) 100 mls @ 200 mls/hr IVPB Q8H-IV RAHUL; Protocol Sodium Chloride (Normal Saline -) 1,000 mls @ 125 mls/hr IV ASDIR RAHUL Last Admin: 02/19/19 20:18 Dose: 125 mls/hr Metronidazole (Flagyl 500mg Premixed Ivpb -) 500 mg in 100 mls @ 100 mls/hr IVPB Q8H-IV RAHUL Last Admin: 02/20/19 02:48 Dose: 100 mls/hr Piperacillin Sod/Tazobactam (Sod 4.5 gm/ Dextrose) 100 mls @ 200 mls/hr IVPB Q8H RAHUL Stop: 02/20/19 14:29 Last Admin: 02/20/19 06:34 Dose: 200 mls/hr Lorazepam (Ativan Injection -) 0.5 mg IVPUSH Q8H PRN PRN Reason: ANXIETY Last Admin: 02/19/19 20:29 Dose: 0.5 mg Morphine Sulfate (Morphine Sulfate) 2 mg IVPUSH Q4H PRN PRN Reason: PAIN LEVEL 6-10 Last Admin: 02/20/19 02:59 Dose: 2 mg Mupirocin (Bactroban Ointment (For Decolonization) -) 1 applic NS BID RAHUL Stop: 02/24/19 21:59 - Objective Vital Signs: Vital Signs Temperature 98.4 F 02/20/19 05:00 Pulse Rate 75 02/20/19 05:00 Respiratory Rate 18 02/20/19 05:00 Blood Pressure 103/58 L 02/20/19 05:00 O2 Sat by Pulse Oximetry (%) 99 02/19/19 19:30 Constitutional: Yes: Well Nourished, Mild Distress (secomdary to pain) Eyes: Yes: WNL, Conjunctiva Clear, EOM Intact HENT: Yes: WNL, Atraumatic, Pharyngeal Erythema Neck: Yes: WNL, Supple, Trachea Midline Cardiovascular: Yes: WNL, Regular Rate and Rhythm Respiratory: Yes: WNL, Regular, CTA Bilaterally Gastrointestinal: Yes: WNL, Hypoactive Bowel Sounds, Tenderness (genralized tenderness), Tenderness, Rebound (to LLQ) Genitourinary: Yes: WNL Musculoskeletal: Yes: WNL Extremities: Yes: WNL Edema: No Peripheral Pulses WNL: Yes Integumentary: Yes: WNL Neurological: Yes: WNL, Alert, Oriented ...Motor Strength: WNL Psychiatric: Yes: WNL, Alert, Oriented Labs: CBC, BMP 02/19/19 11:49 02/19/19 11:49 INR, PTT INR 1.29 (0.82-1.09) H 02/19/19 16:32 - ....Imaging Cat Scan: Report Reviewed ((1) interval development of a small pneumoperitoneum with air seen within the upper abdomen bilaterally; (2) development of two contiguous abscesses (2.3cm, 1.9cm) within the left paracolic space; and (3) pericolonic edema at the level of the upper third of the sigmoid colon c/w acute diverticulitis) EKG: Report Reviewed, Image Reviewed (NSR no ischemic changes) Problem List - Problems (1) Acute diverticulitis Assessment/Plan: -Pneumoperitem seen on CT scan. Remains afebrile, no leukocytosis, hemodynamically stable Pt scheduled for OR for explap with Dr English continue NS @125mL/hr Continue Zosyn and IV metronidazole \morphine for pain prn keep NPO Code(s): K57.92 - DVTRCLI OF INTEST, PART UNSP, W/O PERF OR ABSCESS W/O BLEED (2) Nausea vomiting and diarrhea Assessment/Plan: vomiting resolved but nausea remains zofran prn IVF Code(s): R11.2 - NAUSEA WITH VOMITING, UNSPECIFIED; R19.7 - DIARRHEA, UNSPECIFIED (3) Idiopathic angioedema Assessment/Plan: -stable -followed by an mobile heavy equipment operator; for flares at home takes PO levocetirizine and PO prednisone Code(s): T78.3XXA - ANGIONEUROTIC EDEMA, INITIAL ENCOUNTER (4) Anxiety Assessment/Plan: continue home doses of klonopin and prozac after surgery and able to take PO ativan IV PRN Code(s): F41.9 - ANXIETY DISORDER, UNSPECIFIED (5) Prophylactic measure Assessment/Plan: FEN IVF at 125cc/hr NPO monitor electolytes DVT lovenox sq Dispo Maintain as in patient full code discharge planning Code(s): Z29.9 - ENCOUNTER FOR PROPHYLACTIC MEASURES, UNSPECIFIED Impression/Plan Impression/Plan: 48 year-old male with a PMH significant for diverticulitis, 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 Admitted for acute diverticulitis with multiple abscesses and pneumoperitoneum. Acute diverticulitis Multiple abscesses Pneumoperitoneum --afebrile, no leukocytosis, hemodynamically stable --NS x 2L given, continue NS @125mL/hr --Zosyn and IV metronidazole started; discussed with ID --Dr. Pandey aware, will meet patient at [facility] --morphine for pain Idiopathic angioedema --stable --followed by an mobile heavy equipment operator; for flares at home takes PO levocetirizine and PO prednisone Depression/anxiety --hold PO Prozac, Klonopin, Trazadone --lorazapam IVP 0.5mg q8h PRN FEN Fluids: NS@125mL/hr Electrolytes: replete as indicated Nutrition: NPO DVT prophylaxis: no chemical prophylaxis due to possible surgical intervention; SCDs Imaging 11/11 CTAP: since 11/09, interval development of 2.4 x 0.8cm abscess upper third of sigmoid; small pocket intraluminal air; interval development of small bowel dilitation c/w ileus v. partial SBO 11/16 CTAP: in comparison to 11/11 study, unchanged 2.4 x 0.8cm abscess; improved pericolonic edema along the upper third of the sigmoid Pre hospital course 48 year-old male with a PMH significant for idiopathic angioedema, renal calculi (remote), and depression/anxiety. Presented to the ED with a complaint of constant left lower quadrant abdominal pain. The patient was seen in ED on for similar symptoms and was diagnosed with diverticulitis and sent home with prescriptions for cipro and metronidazole. The patient states that once the pain medications wore off on Saturday, that the pain came back like crazy. He explains that the pain has been progressively getting worse and is exacerbated upon exertion. Patient notes that he has not been able to keep anything down. He reports chills, subjective fever, and hematuria. ER course (1) No fever, no leukocytosis (2) Na 132, K 3.3 Subsequent hospital course 48 year-old male with a PMH significant for idiopathic angioedema, renal calculi (remote), and depression/anxiety. Diagnosed with acute diverticultits of the sigmoid on 11/09. Failed PO antibiotics. Admitted for acute diverticulitis with abscess. Acute diverticultitis sigmoid colon with abscess --afebrile, leukocytosis resolved --CT reviewed by IR who considered abscess too small to drain --followed by surgery and ID --treated with Zosyn x 7 days --diet was advanced, tolerating soft diet at time of discharge --will need repeat CT in 6 weeks and if stable, a followup colonoscopy Idiopathic angioedema --discussed with Dr. 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 - New Patient This patient is new to me today: Yes Date on this admission: 02/20/19 - Critical Care Critical Care patient: No - Discharge Referral Referred to [facility] Med P.C.: No
[2019-02-20 08:30] LABS: BASO % 0.2 % (0-2.0); EOS % 1.9 % (0-4.5); HEMATOCRIT 41.7 % (35.4-49); LYMPH % 17.3 % (8-40); MCH 28.8 pg (25.7-33.7); MCHC 33.6 g/dl (32.0-35.9); MEAN CELL VOLUME 85.8 fl (80-96); MEAN PLT VOLUME 8.4 fl (7.5-11.1); MONO % 7.4 % (3.8-10.2); NEUT % 73.2 % (42.8-82.8); RBC 4.86 M/mm3 (4.00-5.60); RDW 12.9 % (11.9-15.9); WHITE BLOOD COUNT 6.8 K/mm3 (4.0-10.0)
[2019-02-20 08:31] LABS: PLATELET COUNT 147 K/MM3 (134-434)
--- NOTE | 2019-02-20 08:34 | CON.ID ---
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 admitted for evaluation of LLQ pain that began acutely 2 days back. Patient was hospitalized at [place] from 11/11-11/18/18 with diverticulitis with a small abscess. He was treated with IV antibiotics. The abscess was considered too small to drain. Since then, the patient has been in good health, adhering to a strict diet. He had a followup colonoscopy which was unremarkable. Today's pain came on suddenly and severely. CTAP with contrast shows (1) interval development of a small pneumoperitoneum with air seen within the upper abdomen bilaterally; (2) development of two contiguous abscesses ( 2.3cm, 1.9cm) within the left paracolic space; and (3) pericolonic edema at the level of the upper third of the sigmoid colon c/w acute diverticulitis. Patient denies fever, sweats, chills. currently patient feels a little better - History Source History Provided By: Patient Limitations to Obtaining History: No Limitations - Alcohol/Substance Use Hx Alcohol Use: No - Smoking History Smoking history: Never smoked Have you smoked in the past 12 months: No Aproximately how many cigarettes per day: 0 Home Medications - Allergies Allergies/Adverse Reactions: Allergies Allergy/AdvReac Type Severity Reaction Status Date / Time No Known Allergies Allergy Verified 02/19/19 11:57 - Home Medications Home Medications: Ambulatory Orders Clonazepam [Klonopin] 0.5 mg PO ASDIR PRN 11/09/18 Fluoxetine HCl [Prozac] 20 mg PO DAILY 11/09/18 Prednisone 5 mg PO PRN 02/19/19 traZODone HCL [Trazodone HCl] 50 mg PO HS 02/19/19 Review of Systems - Review of Systems Constitutional: reports: No Symptoms Eyes: reports: No Symptoms HENT: reports: No Symptoms Neck: reports: No Symptoms Cardiovascular: reports: No Symptoms Respiratory: reports: No Symptoms Gastrointestinal: reports: Abdominal Pain (llq) Genitourinary: reports: No Symptoms Musculoskeletal: reports: No Symptoms Integumentary: reports: No Symptoms Neurological: reports: No Symptoms Endocrine: reports: No Symptoms Hematology/Lymphatic: reports: No Symptoms Psychiatric: reports: No Symptoms Physical Exam Vital Signs: Vital Signs Temperature 98.4 F 02/20/19 05:00 Pulse Rate 75 02/20/19 05:00 Respiratory Rate 18 02/20/19 05:00 Blood Pressure 103/58 L 02/20/19 05:00 O2 Sat by Pulse Oximetry (%) 99 02/19/19 19:30 Constitutional: Yes: Well Nourished, Calm, Mild Distress Eyes: Yes: Conjunctiva Clear Neck: Yes: Supple, Trachea Midline Respiratory: Yes: Regular, CTA Bilaterally Gastrointestinal: Yes: Soft, Hyperactive Bowel Sounds, Tenderness (left lower quadrant) Musculoskeletal: Yes: WNL Extremities: Yes: WNL Neurological: Yes: Alert, Oriented Psychiatric: Yes: Alert, Oriented Labs: CBC, BMP 02/20/19 06:29 Imaging - Results Chest X-ray: Report Reviewed, Image Reviewed Cat Scan: Report Reviewed, Image Reviewed Assessment/Plan Assessment/Plan Problem List - Problems (1) Diverticulitis of intestine with abscess Assessment/Plan: Code(s): K57.80 - DVTRCLI OF INTEST, PART UNSP, W PERF AND ABSCESS W/O BLEED Qualifiers: Diverticulitis site: large intestine Diverticulitis bleeding: without bleeding Qualified Code(s): K57.20 - Diverticulitis of large intestine with perforation and abscess without bleeding (2) LLQ abdominal pain Code(s): R10.32 - LEFT LOWER QUADRANT PAIN (3) Nausea vomiting and diarrhea Code(s): R11.2 - NAUSEA WITH VOMITING, UNSPECIFIED; R19.7 - DIARRHEA, UNSPECIFIED (4) Panic anxiety syndrome Code(s): F41.0 - PANIC DISORDER [EPISODIC PAROXYSMAL ANXIETY] plan npo hydration iv abx surgery rest as per the team
[2019-02-20 08:47] LABS: CALCIUM 8.1 mg/dL (8.5-10.1); CREATININE 0.8 mg/dL (0.55-1.3); PHOSPHOROUS 3.2 mg/dL (2.5-4.9); POTASSIUM 3.8 mmol/L (3.5-5.1)
--- NOTE | 2019-02-20 11:26 | EKG ---
Test Reason : Blood Pressure : / mmHG Vent. Rate : 063 BPM Atrial Rate : 063 BPM P-R Int : 178 ms QRS Dur : 090 ms QT Int : 410 ms P-R-T Axes : 028 014 019 degrees QTc Int : 419 ms NORMAL SINUS RHYTHM SEPTAL INFARCT , AGE UNDETERMINED NONSPECIFIC ST ABNORMALITY Confirmed by DESMOND GRIMM MD ([id number]) on 02/20/2019 11:26:04 AM Referred By: DR SUTTON Confirmed By:DESMOND GRIMM MD
--- NOTE | 2019-02-20 12:33 | CONSULT ---
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 Presented to the ED earlier today for evaluation of LLQ pain that began acutely at 4am this morning. Patient was hospitalized at [place] from 11/11-11/18/18 with diverticulitis with a small abscess. He was treated with IV antibiotics. The abscess was considered too small to drain. Since then, the patient has been in good health, adhering to a strict diet. He had a followup colonoscopy which was unremarkable. Today's pain came on suddenly and severely. CTAP with contrast shows (1) interval development of a small pneumoperitoneum with air seen within the upper abdomen bilaterally; (2) development of two contiguous abscesses ( 2.3cm, 1.9cm) within the left paracolic space; and (3) pericolonic edema at the level of the upper third of the sigmoid colon c/w acute diverticulitis. Patient denies fever, sweats, chills. - History Source History Provided By: Patient, Medical Record Limitations to Obtaining History: No Limitations - Past Medical History Gastrointestinal: Yes: Diverticulitis, Diverticulosis Psych: Yes: Anxiety - Alcohol/Substance Use Hx Alcohol Use: No - Smoking History Smoking history: Never smoked Have you smoked in the past 12 months: No Aproximately how many cigarettes per day: 0 Home Medications - Allergies Allergies/Adverse Reactions: Allergies Allergy/AdvReac Type Severity Reaction Status Date / Time No Known Allergies Allergy Verified 02/19/19 11:57 - Home Medications Home Medications: Ambulatory Orders Clonazepam [Klonopin] 0.5 mg PO ASDIR PRN 11/09/18 Fluoxetine HCl [Prozac] 20 mg PO DAILY 11/09/18 Prednisone 5 mg PO PRN 02/19/19 traZODone HCL [Trazodone HCl] 50 mg PO HS 02/19/19 Review of Systems - Review of Systems Constitutional: reports: Loss of Appetite, Weakness. denies: Chills, Fever Eyes: denies: Blind Spots, Recent Change in Vision HENT: denies: Difficult Swallowing, Throat Pain Neck: denies: Pain on Movement, Tenderness Cardiovascular: denies: Chest Pain, Palpitations Respiratory: denies: Cough, SOB Gastrointestinal: reports: Abdominal Pain, Constipation. denies: Diarrhea Genitourinary: denies: Discharge, Dysuria, Flank Pain Breasts: reports: No Symptoms Reported. denies: Pain Musculoskeletal: denies: Extremity Pain, Muscle Pain, Muscle Cramps Integumentary: denies: Pruritis, Rash, Wound Neurological: denies: Seizure, Syncope Endocrine: denies: Unexplained Weight Gain, Unexplained Weight Loss Hematology/Lymphatic: denies: Easily Bruised, Excessive Bleeding Psychiatric: reports: Anxiety. denies: Depression Physical Exam Vital Signs: Vital Signs Temperature 98.2 F 02/20/19 09:00 Pulse Rate 72 02/20/19 09:00 Respiratory Rate 18 02/20/19 09:00 Blood Pressure 121/68 02/20/19 09:00 O2 Sat by Pulse Oximetry (%) 99 02/20/19 09:00 Constitutional: Yes: Well Nourished, No Distress, Anxious Eyes: Yes: Conjunctiva Clear, EOM Intact HENT: Yes: Atraumatic, Normocephalic Neck: Yes: Supple, Trachea Midline Cardiovascular: Yes: Regular Rate and Rhythm, S1, S2 Respiratory: Yes: Regular, CTA Bilaterally Gastrointestinal: Yes: Normal Bowel Sounds, Soft, Palpable Mass (fullness in LLQ ), Tenderness, Tenderness, Rebound (LLQ tenderness with guarding). No: Tenderness, Epigastrium ...Rectal Exam: Yes: Sphincter Tone Normal. No: Hemorrhoids/External, Hemorrhoids/Internal, Induration, Mass Renal/: No: CVA Tenderness - Left, CVA Tenderness - Right Breast(s): No: Mass, Skin Changes Musculoskeletal: No: Muscle Pain, Muscle Weakness Extremities: No: Cool, Cyanosis Edema: No Peripheral Pulses WNL: Yes Integumentary: No: Jaundice, Pressure Ulcer, Rash Neurological: Yes: Alert, Oriented Psychiatric: Yes: Alert, Oriented Labs: CBC, BMP 02/20/19 06:29 02/20/19 06:29 Imaging - Results Cat Scan: Report Reviewed, Image Reviewed (pneumoperitoneum upper abdomen. Segment of inflamed diseased sigmoid with associated performation and 2 abscesses) Problem List - Problems (1) Perforated diverticulum of large intestine Assessment/Plan: 48yo Acute perforated Diverticulitis with localized peritonitis, he will need urgent surgical intevention NPO and IVF hydration broad spectrum IV antibiotics OR for Eliud's procedure Discussed with patient risks, benefits and alternatives of aforementioned procedure, including but not limited to bleeding, infection, injury to adjacent structures, leak or injury, intraabdominal abscess, incisional hernia, need for further procedures, ; alternatives include antibiotics, delayed or no surgery - risks of this include failure of nonoperative therapy, perforation, sepsis, recurrence, . Patient desires to proceed with operation - will take to OR for above. Informed consent signed for same. Thank you for the opportunity to participate in the care of this patient. Code(s): K57.20 - DVTRCLI OF LG INT W PERFORATION AND ABSCESS W/O BLEEDING (2) LLQ abdominal pain Code(s): R10.32 - LEFT LOWER QUADRANT PAIN (3) Anxiety Code(s): F41.9 - ANXIETY DISORDER, UNSPECIFIED (4) Idiopathic angioedema Code(s): T78.3XXA - ANGIONEUROTIC EDEMA, INITIAL ENCOUNTER (5) Panic anxiety syndrome Code(s): F41.0 - PANIC DISORDER [EPISODIC PAROXYSMAL ANXIETY]
[2019-02-20] MEDS ORDERED: MIDAZOLAM HCL 2 MG/2 ML SINGLE DOSE VIAL ONE (13:00)
[2019-02-20] MEDS ORDERED: PROPOFOL 20 ML ONE ×2 (13:00→14:07)
[2019-02-20] MEDS ORDERED: KETAMINE HCL 200 MG/20 ML VIAL ONE (13:00)
[2019-02-20] MEDS ORDERED: DEXAMETHASONE SOD PHOSPHATE 4 MG/1 ML VIAL ONE (13:01)
[2019-02-20] MEDS ORDERED: VECURONIUM BROMIDE 10 MG VIAL ONE (13:01)
[2019-02-20] MEDS ORDERED: SUCCINYLCHOLINE CHLORIDE 200 MG/10 ML SYRINGE ONE (13:01)
[2019-02-20] MEDS ORDERED: LIDOCAINE HCL/PF 2% SDV 5ML VIAL ONE (13:01)
[2019-02-20] MEDS ORDERED: MAGNESIUM SULF 50% (8.12 MEQ/2 ML-1 GM VIAL) ONE (13:07)
[2019-02-20] MEDS ORDERED: SODIUM CHLORIDE 0.9% P/F 10 ML VIAL IJ ONE (13:07)
[2019-02-20] MEDS ORDERED: DESFLURANE GAS 240 ML BOTTLE IH ONE (13:24)
[2019-02-20] MEDS ORDERED: IBUPROFEN 800 MG/8 ML IJ IVPB ONE (13:24)
[2019-02-20] MEDS ORDERED: CEFOXITIN SODIUM 1 GM in DEXTROSE 5%-WATER 100 ML IVPB ONE (13:45)
[2019-02-20] MEDS ORDERED: CEFOXITIN SODIUM/DEXTROSE,ISO 2 GM/50 ML BAG IVPB ONE (14:00)
[2019-02-20] MEDS ORDERED: cefOXitin SODIUM 1 GM VIAL (RESTRICTED TO ID) IVPB ONE (14:01)
[2019-02-20] MEDS ORDERED: methylPREDNISolone NA SUCC 125 MG/2 ML VIAL ONE (14:17)
[2019-02-20] MEDS ORDERED: BENZOIN TINCTURE SWABSTICK TP ONE (15:06)
[2019-02-20] MEDS ORDERED: NEOSTIGMINE METHYLSULFATE 0.5 MG/ML - 10 ML MDV ONE (15:24)
[2019-02-20] MEDS ORDERED: GLYCOPYRROLATE 0.2 MG/1 ML VIAL ONE (15:24)
[2019-02-20] MEDS ORDERED: ATROPINE SULFATE 1 MG/10 ML DISP.SYRIN ONE (15:24)
[2019-02-20] MEDS ORDERED: EPHEDRINE SULFATE/0.9% NACL/PF 50 MG/10 ML SYRINGE NR ONE (15:30)
[2019-02-20] MEDS ORDERED: ONDANSETRON 4 MG/2 ML VIAL IVPUSH PRN (16:33)
[2019-02-20] MEDS ORDERED: PROMETHAZINE HCL 25 MG/1 ML VIAL IVPUSH PRN (16:33)
--- NOTE | 2019-02-20 16:35 | OP ---
Operative Note - Note: Operative Date: 02/20/19 Pre-Operative Diagnosis: perforated siogmoid diverticulitis Operation: exploratory laparotomy, deidra's procedure Findings: sigmoid colon was adherent to left lateral sidewall, 2 areas of intramural abscess were palpated on the specimen. Distal stump was marked with 2-0 Proline LLQ end colostomy was fashioned. Surgeon: Amos English Tricot Knitting Machine Operator: Horace Tang Anesthesiologist/TANK FILLER: Benoit Tejada Anesthesia: General, Local Specimens Removed: portion of sigmoid colon Estimated Blood Loss (mls): 50 Drains & Tubes with Location: NGT @60cm, tapia Drains, Volume Out (mls): 250 (tapia ) Fluid Volume Replaced (mls): 1,400
[2019-02-20] MEDS ORDERED: LACTATED RINGERS SOLUTION 1,000 ML IV SCH (16:45)
[2019-02-20] MEDS ORDERED: HYDROmorphone *PCA* 10MG/50ML DISP.SYRIN PCA SCH (16:45)
[2019-02-20] MEDS ORDERED: HYDROmorphone *PCA* 10MG/50ML DISP.SYRIN ONE (16:53)
[2019-02-20] MEDS: LACTATED RINGERS SOLUTION 1,000 ML IV SCH (17:00)
[2019-02-20] MEDS: HYDROmorphone *PCA* 10MG/50ML DISP.SYRIN PCA SCH (17:00)
[2019-02-20] MEDS ORDERED: SODIUM CHLORIDE 1,000 ML IV SCH (17:19)
[2019-02-20] MEDS: PIPERACILLIN/TAZOB 3.375 GM 3.375 GM in DEXTROSE 5%-WATER - 50 ML IVPB SCH ×2 (18:00)
[2019-02-20] MEDS ORDERED: PIPERACILLIN/TAZOB 3.375 GM 3.375 GM in DEXTROSE 5%-WATER - 50 ML IVPB SCH (18:00)
[2019-02-20] MEDS ORDERED: MUPIROCIN 2% TOPICAL OINTMENT FOR DECOLONIZATION NS SCH (22:00)
[2019-02-21] MEDS ORDERED: DEXTROSE 5%-WATER - 50 ML IVPB ONE ×3 (00:08→17:08)
[2019-02-21] MEDS ORDERED: PIPERACILLIN/TAZOBACTAM 3.375 GM VIAL IVPB ONE ×3 (00:08→17:08)
[2019-02-21] MEDS: PIPERACILLIN/TAZOB 3.375 GM 3.375 GM in DEXTROSE 5%-WATER - 50 ML IVPB SCH ×3 (01:35→18:31)
[2019-02-21] MEDS: LACTATED RINGERS SOLUTION 1,000 ML IV SCH ×3 (04:52→17:19)
[2019-02-21 07:39] LABS: HEMATOCRIT 39.4 % (35.4-49); HEMOGLOBIN 13.5 GM/dL (11.7-16.9); LYMPH % 6.6 % (8-40); MCH 29.2 pg (25.7-33.7); MCHC 34.2 g/dl (32.0-35.9); MEAN CELL VOLUME 85.2 fl (80-96); MEAN PLT VOLUME 8.4 fl (7.5-11.1); MONO % 8.2 % (3.8-10.2); NEUT % 85.2 % (42.8-82.8); PLATELET COUNT 150 K/MM3 (134-434); RBC 4.63 M/mm3 (4.00-5.60); WHITE BLOOD COUNT 9.3 K/mm3 (4.0-10.0)
[2019-02-21 07:54] LABS: INR 1.3 (0.83-1.09); PROTHROMBIN TIME (PATIENT) 15.4 SEC (9.7-13.0)
[2019-02-21 08:07] LABS: ALBUMIN 2.8 g/dl (3.4-5.0); BILIRUBIN,TOTAL 0.7 mg/dL (0.2-1); BLOOD UREA NITROGEN 11.6 mg/dL (7-18); CALCIUM 8.2 mg/dL (8.5-10.1); CREATININE 0.7 mg/dL (0.55-1.3); MAGNESIUM 2.2 mg/dL (1.8-2.4); POTASSIUM 4.2 mmol/L (3.5-5.1); TOT PROT 5.6 g/dl (6.4-8.2)
--- NOTE | 2019-02-21 09:03 | PN ---
Physical Exam: SUBJECTIVE: Patient seen and examined pt s/p surgery day one no pain no distress he has partial colectomy and colostomy done on abx and pain meds OBJECTIVE: Vital Signs Period Temp Pulse Resp BP Sys/Domingo Pulse Ox Last 24 Hr 98.2 F-98.8 F 67-91 11-21 108-142/55-90 97-100 GENERAL: The patient is awake, alert, and fully oriented, in no acute distress. HEAD: Normal with no signs of trauma. EYES: PERRL, extraocular movements intact, sclera anicteric, conjunctiva clear. No ptosis. ENT: Ears normal, nares patent, oropharynx clear without exudates, moist mucous membranes. NECK: Trachea midline, full range of motion, supple. LUNGS: Breath sounds equal, clear to auscultation bilaterally, no wheezes, no crackles, no accessory muscle use. HEART: Regular rate and rhythm, S1, S2 without murmur, rub or gallop. ABDOMEN: Soft, post surgical guarding, bs abscent rebound, no hepatosplenomegaly, no masses. EXTREMITIES: 2+ pulses, warm, well-perfused, no edema. NEUROLOGICAL: Cranial nerves II through XII grossly intact. Normal speech, gait not observed. PSYCH: Normal mood, normal affect. SKIN: Warm, dry, normal turgor, no rashes or lesions noted Laboratory Results - last 24 hr 02/21/19 02/21/19 02/21/19 06:10 06:10 06:10 WBC 9.3 RBC 4.63 Hgb 13.5 Hct 39.4 MCV 85.2 MCH 29.2 MCHC 34.2 RDW 13.0 Plt Count 150 MPV 8.4 Absolute Neuts (auto) 7.9 Neutrophils % 85.2 H Lymphocytes % 6.6 L D Monocytes % 8.2 Eosinophils % 0.0 D Basophils % 0.0 Nucleated RBC % 0 PT with INR 15.40 H INR 1.30 H Sodium 139 Potassium 4.2 Chloride 103 Carbon Dioxide 28 Anion Gap 7 L BUN 11.6 Creatinine 0.7 Est GFR (CKD-EPI)AfAm 130.25 Est GFR (CKD-EPI)NonAf 112.38 Random Glucose 109 H Calcium 8.2 L Magnesium 2.2 Total Bilirubin 0.7 AST 9 L ALT 12 L Alkaline Phosphatase 67 Total Protein 5.6 L Albumin 2.8 L Active Medications Generic Name Dose Route Start Last Admin Trade Name Freq PRN Reason Stop Dose Admin Hydromorphone HCl 10 mg 02/20/19 17:19 02/20/19 17:00 Hydromorphone 10 Mg/50 Ml-Ns FRIT MIXER AND BURNER 02/27/19 16:35 10 mg FRIT MIXER AND BURNER RAHUL Administration Protocol Metronidazole 500 mg in 100 mls @ 100 mls/hr 02/20/19 18:00 02/21/19 02:15 Flagyl 500mg Premixed Ivpb - IVPB 100 mls/hr Q8H-IV RAHUL Administration Lactated Ringer's 1,000 mls @ 125 mls/hr 02/20/19 17:19 02/21/19 04:52 Lactated Ringers Solution IV 125 mls/hr ASDIR ARHUL Administration Piperacillin Sod/Tazobactam 50 mls @ 100 mls/hr 02/20/19 18:00 02/21/19 01:35 Sod 3.375 gm/ Dextrose IVPB 100 mls/hr Q8H-IV RAHUL Administration Protocol Lorazepam 0.5 mg 02/20/19 17:19 Ativan Injection - IVPUSH Q8H PRN ANXIETY Mupirocin 1 applic 02/20/19 22:00 Bactroban Ointment (For Decolonization) - NS 02/24/19 21:59 BID RAHUL ASSESSMENT/PLAN: 48 year-old male with a PMH significant for diverticulitis, 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 Presented to the ED earlier today for evaluation of LLQ and sp surgery he is comfortable npo pressure stocking abs zosyn and flagyl lorazepam prn for anxiety labs are stable. Visit type - Emergency Visit Emergency Visit: Yes ED Registration Date: 02/19/19 Care time: The patient presented to the Emergency Department on the above date and was hospitalized for further evaluation of their emergent condition. - New Patient This patient is new to me today: Yes Date on this admission: 02/21/19 - Critical Care Critical Care patient: No - Discharge Referral Referred to [facility] Med P.C.: No
--- NOTE | 2019-02-21 12:23 | PN ---
Progress Note, Physician - Current Medication List Current Medications: Active Medications Hydromorphone HCl (Hydromorphone 10 Mg/50 Ml-Ns) 10 mg PRODUCTION OR PLANT ENGINEER PRODUCTION OR PLANT ENGINEER RAHUL; Protocol Stop: 02/27/19 16:35 Last Admin: 02/20/19 17:00 Dose: 10 mg Metronidazole (Flagyl 500mg Premixed Ivpb -) 500 mg in 100 mls @ 100 mls/hr IVPB Q8H-IV RAHUL Last Admin: 02/21/19 09:02 Dose: 100 mls/hr Lactated Ringer's (Lactated Ringers Solution) 1,000 mls @ 125 mls/hr IV ASDIR RAHUL Last Admin: 02/21/19 04:52 Dose: 125 mls/hr Piperacillin Sod/Tazobactam (Sod 3.375 gm/ Dextrose) 50 mls @ 100 mls/hr IVPB Q8H-IV RAHUL; Protocol Last Admin: 02/21/19 09:59 Dose: 100 mls/hr Lorazepam (Ativan Injection -) 0.5 mg IVPUSH Q8H PRN PRN Reason: ANXIETY Mupirocin (Bactroban Ointment (For Decolonization) -) 1 applic NS BID RAHUL Stop: 02/24/19 21:59 - Objective Vital Signs: Vital Signs Temperature 98.4 F 02/21/19 10:00 Pulse Rate 66 02/21/19 10:00 Respiratory Rate 20 02/21/19 10:00 Blood Pressure 117/71 02/21/19 10:00 O2 Sat by Pulse Oximetry (%) 98 02/21/19 09:00 Labs: CBC, BMP 02/21/19 06:10 02/21/19 06:10 INR, PTT INR 1.30 (0.83-1.09) H 02/21/19 06:10
--- NOTE | 2019-02-21 14:03 | PN ---
Progress Note, Physician Chief Complaint: s/p ex lap colon resection History of Present Illness: post op day one with pleater for pain control - Current Medication List Current Medications: Active Medications Acetaminophen (Ofirmev Injection -) 1,000 mg IVPB Q6H RAHUL Stop: 02/22/19 08:01 Diazepam (Valium Injection -) 5 mg IVPUSH Q6H PRN PRN Reason: PAIN Hydromorphone HCl (Hydromorphone 10 Mg/50 Ml-Ns) 10 mg UTILIZATION MANAGEMENT RN UTILIZATION MANAGEMENT RN RAHUL; Protocol Stop: 02/27/19 16:35 Last Admin: 02/20/19 17:00 Dose: 10 mg Metronidazole (Flagyl 500mg Premixed Ivpb -) 500 mg in 100 mls @ 100 mls/hr IVPB Q8H-IV RAHUL Last Admin: 02/21/19 09:02 Dose: 100 mls/hr Lactated Ringer's (Lactated Ringers Solution) 1,000 mls @ 125 mls/hr IV ASDIR RAHUL Last Admin: 02/21/19 04:52 Dose: 125 mls/hr Piperacillin Sod/Tazobactam (Sod 3.375 gm/ Dextrose) 50 mls @ 100 mls/hr IVPB Q8H-IV RAHUL; Protocol Last Admin: 02/21/19 09:59 Dose: 100 mls/hr Lorazepam (Ativan Injection -) 0.5 mg IVPUSH Q8H PRN PRN Reason: ANXIETY Mupirocin (Bactroban Ointment (For Decolonization) -) 1 applic NS BID RAHUL Stop: 02/24/19 21:59 - Objective Vital Signs: Vital Signs Temperature 98.4 F 02/21/19 10:00 Pulse Rate 66 02/21/19 10:00 Respiratory Rate 20 02/21/19 10:00 Blood Pressure 117/71 02/21/19 10:00 O2 Sat by Pulse Oximetry (%) 98 02/21/19 09:00 Constitutional: Yes: Well Nourished, Mild Distress Cardiovascular: Yes: WNL Respiratory: Yes: WNL Gastrointestinal: Yes: Distention, Tenderness Labs: CBC, BMP 02/21/19 06:10 02/21/19 06:10 INR, PTT INR 1.30 (0.83-1.09) H 02/21/19 06:10 Assessment/Plan Pain not well controlled, advised patient to use pleater more consistently, will add ofirmev and valium for adjuvant pain control. NGT in place will continue pleater until ngt out and tolerating po. dept of anesthesiology will continue to manage pain control until that time
[2019-02-21] MEDS: ACETAMINOPHEN 1000 MG/100 ML VIAL (NON FORMULARY) IVPB SCH ×2 (14:47→20:51)
[2019-02-21] MEDS: diazePAM CARPU-JECT 10 MG/2 ML DISP.SYRIN IVPUSH PRN ×2 (16:20→23:14)
[2019-02-21] MEDS: HYDROmorphone *PCA* 10MG/50ML DISP.SYRIN PCA SCH ×2 (17:19→18:06)
--- NOTE | 2019-02-21 21:51 | PN ---
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 Presented to the ED earlier today for evaluation of LLQ pain that began acutely at 4am this morning. Patient was hospitalized at [facility] from 11/11-11/18/18 with diverticulitis with a small abscess. he has been stable postoperatively. - Current Medication List Current Medications: Active Medications Acetaminophen (Ofirmev Injection -) 1,000 mg IVPB Q6H RAHUL Stop: 02/22/19 08:01 Last Admin: 02/21/19 20:51 Dose: 1,000 mg Diazepam (Valium Injection -) 5 mg IVPUSH Q6H PRN PRN Reason: PAIN Last Admin: 02/21/19 16:20 Dose: 5 mg Hydromorphone HCl (Hydromorphone 10 Mg/50 Ml-Ns) 10 mg GASKET INSPECTOR GASKET INSPECTOR RAHUL; Protocol Stop: 02/27/19 16:35 Last Admin: 02/21/19 18:06 Dose: 10 mg Metronidazole (Flagyl 500mg Premixed Ivpb -) 500 mg in 100 mls @ 100 mls/hr IVPB Q8H-IV RAHUL Last Admin: 02/21/19 17:19 Dose: 100 mls/hr Lactated Ringer's (Lactated Ringers Solution) 1,000 mls @ 125 mls/hr IV ASDIR RAHUL Last Admin: 02/21/19 17:19 Dose: Not Given Piperacillin Sod/Tazobactam (Sod 3.375 gm/ Dextrose) 50 mls @ 100 mls/hr IVPB Q8H-IV RAHUL; Protocol Last Admin: 02/21/19 18:31 Dose: 100 mls/hr Lorazepam (Ativan Injection -) 0.5 mg IVPUSH Q8H PRN PRN Reason: ANXIETY - Objective Vital Signs: Vital Signs Temperature 98.6 F 02/21/19 20:00 Pulse Rate 66 02/21/19 20:00 Respiratory Rate 20 02/21/19 20:00 Blood Pressure 143/82 02/21/19 20:00 O2 Sat by Pulse Oximetry (%) 98 02/21/19 18:36 Constitutional: Yes: Well Nourished, No Distress, Calm Eyes: Yes: Conjunctiva Clear, EOM Intact HENT: Yes: Atraumatic, Normocephalic Neck: Yes: Supple, Trachea Midline Cardiovascular: Yes: Regular Rate and Rhythm, S1, S2 Respiratory: Yes: Regular, CTA Bilaterally Gastrointestinal: Yes: Normal Bowel Sounds, Soft, Tenderness (incisonal). No: Tenderness, Rebound, Vomiting ...Rectal Exam: Yes: Deferred Genitourinary: Yes: Tapia Present. No: CVA Tenderness - Left, CVA Tenderness - Right Musculoskeletal: No: Joint Stiffness, Muscle Pain, Muscle Weakness Extremities: No: Cool, Cyanosis Edema: No Peripheral Pulses WNL: Yes Peripheral Pulses: Left Radial: 2+, Right Radial: 2+, Left Doralis Pedis: 2+, Right Dorsalis Pedis: 2+, Left Femoral: 2+, Right Femoral: 2+ Integumentary: Yes: Incision. No: Jaundice, Skin Tear Wound/Incision: Yes: Clean/Dry, Well Approximated, Dressing Dry and Intact Neurological: Yes: Alert, Oriented Psychiatric: Yes: Alert, Oriented Labs: CBC, BMP 02/21/19 06:10 02/21/19 06:10 INR, PTT INR 1.30 (0.83-1.09) H 02/21/19 06:10 Problem List - Problems (1) Perforated diverticulum of large intestine Assessment/Plan: 48yo Acute perforated Diverticulitis with localized peritonitis, POD#1 s/p Eliud's Procedure NPO and IVF hydration NGT continue Discontinue tapia OOB and ambulate continue broad spectrum IV antibiotics will follow Code(s): K57.20 - DVTRCLI OF LG INT W PERFORATION AND ABSCESS W/O BLEEDING (2) LLQ abdominal pain Code(s): R10.32 - LEFT LOWER QUADRANT PAIN (3) Anxiety Code(s): F41.9 - ANXIETY DISORDER, UNSPECIFIED (4) Idiopathic angioedema Code(s): T78.3XXA - ANGIONEUROTIC EDEMA, INITIAL ENCOUNTER (5) Panic anxiety syndrome Code(s): F41.0 - PANIC DISORDER [EPISODIC PAROXYSMAL ANXIETY]
[2019-02-22] MEDS ORDERED: DEXTROSE 5%-WATER - 50 ML IVPB ONE ×5 (01:10→23:58)
[2019-02-22] MEDS ORDERED: PIPERACILLIN/TAZOBACTAM 3.375 GM VIAL IVPB ONE ×5 (01:10→23:57)
[2019-02-22] MEDS: PIPERACILLIN/TAZOB 3.375 GM 3.375 GM in DEXTROSE 5%-WATER - 50 ML IVPB SCH ×3 (01:45→17:29)
[2019-02-22] MEDS: ACETAMINOPHEN 1000 MG/100 ML VIAL (NON FORMULARY) IVPB SCH ×2 (01:46→10:39)
[2019-02-22 08:27] LABS: BASO % 0.5 % (0-2.0); EOS % 1.9 % (0-4.5); HEMATOCRIT 39.3 % (35.4-49); HEMOGLOBIN 13.3 GM/dL (11.7-16.9); LYMPH % 14.2 % (8-40); MCH 29.1 pg (25.7-33.7); MCHC 33.9 g/dl (32.0-35.9); MEAN CELL VOLUME 85.6 fl (80-96); MEAN PLT VOLUME 8.7 fl (7.5-11.1); MONO % 8.9 % (3.8-10.2); NEUT % 74.5 % (42.8-82.8); RBC 4.58 M/mm3 (4.00-5.60); RDW 12.9 % (11.9-15.9); WHITE BLOOD COUNT 7.2 K/mm3 (4.0-10.0)
[2019-02-22 08:39] LABS: ALBUMIN 2.8 g/dl (3.4-5.0); BILIRUBIN,TOTAL 0.7 mg/dL (0.2-1); BLOOD UREA NITROGEN 11.5 mg/dL (7-18); CALCIUM 8.1 mg/dL (8.5-10.1); CREATININE 0.7 mg/dL (0.55-1.3); POTASSIUM 3.8 mmol/L (3.5-5.1); TOT PROT 5.6 g/dl (6.4-8.2)
[2019-02-22] MEDS: PIPERACILLIN/TAZOB 4.5 GM 4.5 GM in DEXTROSE 5%-WATER 100 ML IVPB SCH (08:45)
[2019-02-22] MEDS: MUPIROCIN 2% TOPICAL OINTMENT FOR DECOLONIZATION NS SCH (08:46)
[2019-02-22] MEDS: SODIUM CHLORIDE 1,000 ML IV SCH (08:47)
[2019-02-22 09:19] LABS: PLATELET COUNT 142 K/MM3 (134-434)
--- NOTE | 2019-02-22 09:37 | PN ---
Progress Note (short form) - Note Progress Note: Anesthesia BARMAN round POD#2, S/P partial colectomy. Pat seen amd examined. NG in place. NPO. Pain 5-6/ 10 when moving. VSS. Will continue BARMAN untill tolerating po.
--- NOTE | 2019-02-22 12:49 | RAPID ---
Physical Examination Vital Signs: Vital Signs Temperature 98.4 F 02/22/19 04:00 Pulse Rate 64 02/22/19 10:06 Respiratory Rate 18 02/22/19 10:06 Blood Pressure 121/79 02/22/19 10:06 O2 Sat by Pulse Oximetry (%) 99 02/22/19 10:06 Findings/Remarks: RR called for patient passed out while sitting in the chair. Patient recently has colon surgery. Patient had his tapia removed this morning and has urinated only a little. Patient has not received any pain medication this morning. Sugar 103. Dr. Tang at [facility], reports patient was also vasovagal during surgery. V: 154/94, 79, 100% Assessment: RRR, CTAL, abdomen nondistended Plan; - cxr, ekg, bladder scan: 925 retaining, will order tapia and reinsert - CBC, CMP, lactic acid, cardiac enzymes - patient has hx of anxiety, 0.5 ativan given - We will notify PCP Labs: CBC, BMP 02/22/19 06:45 02/22/19 06:45
[2019-02-22] MEDS ORDERED: LORazepam 2 MG/ML SDV VIAL IVPUSH ONE (12:55)
--- NOTE | 2019-02-22 13:30 | PN ---
Progress Note (short form) - Note Progress Note: Responded to rapid response call on Dr. English' postop patient. Per nurse, he had rung willson while sitting in chair and gotten woozy, slumped a bit, possibly fainted briefly. He was back in bed when I arrived. Complained of anxiety, feeling shaky, numbness/tingling in both hands, "not sure of what's going on," that his stomach was "burning," and the sensation that he needed to urinate but could not. Elizabeth catheter had been removed at 6am. He had voided 600ml and 400ml since then. BP, sat, HR were normal, afebrile, glucose finger stick 103. NG in place and sumping brown fluid, small amount. Bladder scan was done showing about 925ml. I replaced Elizabeth catheter 16 Fr with immmediate output of at least 700ml very light yellow/clear urine. Patient stated relief and though still somewhat tender in lower abdomen, was less so and appropriate for postop state. EKG was then done showing NSR at 66. Colostomy appears ok with a little serosang fluid in bag only. Midline dressing removed - incision with david c/d /i. Medical team was also present. Pt states he takes Prozac at home for anxiety and clonazepam as needed. Medical team was ordering 0.5mg ativan IV once. Patient's father was in attendance; both he and patient were reassured. Dr. English is expected to round later today and was informed of events by me.
[2019-02-22 15:21] LABS: HEMATOCRIT 40.9 % (35.4-49); HEMOGLOBIN 13.8 GM/dL (11.7-16.9); MCH 28.9 pg (25.7-33.7); MCHC 33.7 g/dl (32.0-35.9); MEAN CELL VOLUME 85.8 fl (80-96); MEAN PLT VOLUME 8.2 fl (7.5-11.1); RBC 4.76 M/mm3 (4.00-5.60); RDW 12.5 % (11.9-15.9); WHITE BLOOD COUNT 8.1 K/mm3 (4.0-10.0)
[2019-02-22 15:31] LABS: PLATELET COUNT 158 K/MM3 (134-434)
[2019-02-22 15:46] LABS: ALK PHOS 66 U/L (45-117); ANION GAP 10 MMOL/L (8-16); BILIRUBIN,TOTAL 0.9 mg/dL (0.2-1); BLOOD UREA NITROGEN 10.5 mg/dL (7-18); CALCIUM 8.4 mg/dL (8.5-10.1); CHLORIDE 98 mmol/L (98-107); CO2 27 mmol/L (21-32); CREATININE 0.8 mg/dL (0.55-1.3); GLUCOSE,RANDOM 95 mg/dL (74-106); POTASSIUM 3.3 mmol/L (3.5-5.1); SGOT/AST 13 U/L (15-37); SGPT/ALT 12 U/L (13-61); SODIUM 136 mmol/L (136-145); TOT PROT 6.1 g/dl (6.4-8.2)
--- NOTE | 2019-02-22 15:59 | PN ---
Physical Exam: SUBJECTIVE: Patient seen and examined He apparently had an episode of pre syncope this am while sitting in his chair , he was seen by rapid response and he is better no headache or chest pains.He has h/o vasovagal in the past as well now he is comfortable OBJECTIVE: Vital Signs Period Temp Pulse Resp BP Sys/Domingo Pulse Ox Last 24 Hr 97.9 F-98.6 F 64-96 18-20 121-146/72-98 97-100 GENERAL: The patient is awake, alert, and fully oriented, in no acute distress. HEAD: Normal with no signs of trauma. EYES: PERRL, extraocular movements intact, sclera anicteric, conjunctiva clear. No ptosis. ENT: Ears normal, nares patent, oropharynx clear without exudates, moist mucous membranes. NECK: Trachea midline, full range of motion, supple. LUNGS: Breath sounds equal, clear to auscultation bilaterally, no wheezes, no crackles, no accessory muscle use. HEART: Regular rate and rhythm, S1, S2 without murmur, rub or gallop. ABDOMEN: Soft, nontender, nondistended, normoactive bowel sounds, no guarding, no rebound, no hepatosplenomegaly, no masses. EXTREMITIES: 2+ pulses, warm, well-perfused, no edema. NEUROLOGICAL: Cranial nerves II through XII grossly intact. Normal speech, gait not observed. PSYCH: Normal mood, normal affect. SKIN: Warm, dry, normal turgor, no rashes or lesions noted Laboratory Results - last 24 hr 02/22/19 02/22/19 02/22/19 06:45 06:45 12:54 WBC 7.2 RBC 4.58 Hgb 13.3 Hct 39.3 MCV 85.6 MCH 29.1 MCHC 33.9 RDW 12.9 Plt Count 142 MPV 8.7 Absolute Neuts (auto) 5.4 Neutrophils % 74.5 Lymphocytes % 14.2 D Monocytes % 8.9 Eosinophils % 1.9 D Basophils % 0.5 D Nucleated RBC % 0 Sodium 136 Potassium 3.8 Chloride 100 Carbon Dioxide 31 Anion Gap 5 L BUN 11.5 Creatinine 0.7 Est GFR (CKD-EPI)AfAm 130.25 Est GFR (CKD-EPI)NonAf 112.38 POC Glucometer 103 Random Glucose 81 Lactic Acid Calcium 8.1 L Magnesium 2.0 Total Bilirubin 0.7 AST 10 L ALT 12 L Alkaline Phosphatase 65 Creatine Kinase Troponin I Total Protein 5.6 L Albumin 2.8 L 02/22/19 02/22/19 02/22/19 14:35 14:35 14:35 WBC 8.1 RBC 4.76 Hgb 13.8 Hct 40.9 MCV 85.8 MCH 28.9 MCHC 33.7 RDW 12.5 Plt Count 158 MPV 8.2 Absolute Neuts (auto) Neutrophils % Lymphocytes % Monocytes % Eosinophils % Basophils % Nucleated RBC % Sodium 136 Potassium 3.3 L Chloride 98 Carbon Dioxide 27 Anion Gap 10 BUN 10.5 Creatinine 0.8 Est GFR (CKD-EPI)AfAm 123.29 Est GFR (CKD-EPI)NonAf 106.38 POC Glucometer Random Glucose 95 Lactic Acid 2.0 Calcium 8.4 L Magnesium Total Bilirubin 0.9 AST 13 L ALT 12 L Alkaline Phosphatase 66 Creatine Kinase 114 Troponin I < 0.02 Total Protein 6.1 L Albumin 3.0 L Active Medications Generic Name Dose Route Start Last Admin Trade Name Freq PRN Reason Stop Dose Admin Diazepam 5 mg 02/21/19 13:58 02/21/19 23:14 Valium Injection - IVPUSH 5 mg Q6H PRN Administration PAIN Hydromorphone HCl 10 mg 02/20/19 17:19 02/21/19 18:06 Hydromorphone 10 Mg/50 Ml-Ns WEBSPHERE COMMERCE CONSULTANT 02/27/19 16:35 10 mg WEBSPHERE COMMERCE CONSULTANT RAHUL Administration Protocol Metronidazole 500 mg in 100 mls @ 100 mls/hr 02/20/19 18:00 02/22/19 10:39 Flagyl 500mg Premixed Ivpb - IVPB 100 mls/hr Q8H-IV RAHUL Administration Lactated Ringer's 1,000 mls @ 125 mls/hr 02/20/19 17:19 02/21/19 17:19 Lactated Ringers Solution IV Not Given ASDIR RAHUL Piperacillin Sod/Tazobactam 50 mls @ 100 mls/hr 02/20/19 18:00 02/22/19 10:39 Sod 3.375 gm/ Dextrose IVPB 100 mls/hr Q8H-IV RAHUL Administration Protocol Lorazepam 0.5 mg 02/20/19 17:19 Ativan Injection - IVPUSH Q8H PRN ANXIETY ASSESSMENT/PLAN: 48 year-old male with a PMH significant for diverticulitis, 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 Presented to the ED earlier today for evaluation of LLQ and sp surgery he is comfortable npo pressure stocking abs zosyn and flagyl lorazepam prn for anxiety labs are stable. vasovagal probably due to anxiety his lactic acid is normal and so is ekg will continue to monitor Visit type - Emergency Visit Emergency Visit: Yes ED Registration Date: 02/19/19 Care time: The patient presented to the Emergency Department on the above date and was hospitalized for further evaluation of their emergent condition. - New Patient This patient is new to me today: No - Critical Care Critical Care patient: No - Discharge Referral Referred to [facility] Med P.C.: No
[2019-02-22] MEDS: LACTATED RINGERS SOLUTION 1,000 ML IV SCH (17:32)
[2019-02-22] MEDS: HYDROmorphone *PCA* 10MG/50ML DISP.SYRIN PCA SCH ×2 (17:42→17:43)
--- NOTE | 2019-02-23 00:14 | EKG ---
Test Reason : Blood Pressure : / mmHG Vent. Rate : 066 BPM Atrial Rate : 066 BPM P-R Int : 156 ms QRS Dur : 094 ms QT Int : 446 ms P-R-T Axes : 049 015 024 degrees QTc Int : 467 ms NORMAL SINUS RHYTHM NORMAL ECG WHEN COMPARED WITH ECG OF 19-FEB-2019 18:02, CRITERIA FOR SEPTAL INFARCT ARE NO LONGER PRESENT Confirmed by MD Stephen, Nasir ([id number]) on 02/23/2019 12:13:42 AM Referred By: Tommy HARRIS Confirmed By:Nasir Mitchell MD
[2019-02-23] MEDS: PIPERACILLIN/TAZOB 3.375 GM 3.375 GM in DEXTROSE 5%-WATER - 50 ML IVPB SCH ×3 (01:00→17:32)
[2019-02-23] MEDS: LORazepam 2 MG/ML SDV VIAL IVPUSH PRN ×2 (06:51→22:00)
--- NOTE | 2019-02-23 07:47 | PN ---
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 Presented to the ED earlier today for evaluation of LLQ pain that began acutely at 4am this morning. Patient was hospitalized at [facility] from 11/11-11/18/18 with diverticulitis with a small abscess. He was treated with IV antibiotics. The abscess was considered too small to drain. Since then, the patient has been in good health, adhering to a strict diet. He had a followup colonoscopy which was unremarkable. Pain came on suddenly and severely. CTAP with contrast shows (1) interval development of a small pneumoperitoneum with air seen within the upper abdomen bilaterally; (2) development of two contiguous abscesses (2.3cm, 1.9cm) within the left paracolic space; and (3) pericolonic edema at the level of the upper third of the sigmoid colon c/w acute diverticulitis. Patient denies fever, sweats, chills. - Current Medication List Current Medications: Active Medications Diazepam (Valium Injection -) 5 mg IVPUSH Q6H PRN PRN Reason: PAIN Last Admin: 02/21/19 23:14 Dose: 5 mg Hydromorphone HCl (Hydromorphone 10 Mg/50 Ml-Ns) 10 mg MEDICAL OFFICE SECRETARY MEDICAL OFFICE SECRETARY RAHUL; Protocol Stop: 02/27/19 16:35 Last Admin: 02/22/19 17:43 Dose: 10 mg Metronidazole (Flagyl 500mg Premixed Ivpb -) 500 mg in 100 mls @ 100 mls/hr IVPB Q8H-IV RAHUL Last Admin: 02/23/19 00:59 Dose: 100 mls/hr Lactated Ringer's (Lactated Ringers Solution) 1,000 mls @ 125 mls/hr IV ASDIR RAHUL Last Admin: 02/22/19 17:32 Dose: 125 mls/hr Piperacillin Sod/Tazobactam (Sod 3.375 gm/ Dextrose) 50 mls @ 100 mls/hr IVPB Q8H-IV RAHUL; Protocol Last Admin: 02/23/19 01:00 Dose: 100 mls/hr Lorazepam (Ativan Injection -) 0.5 mg IVPUSH Q8H PRN PRN Reason: ANXIETY Last Admin: 02/23/19 06:51 Dose: 0.5 mg - Objective Vital Signs: Vital Signs Temperature 99.1 F 02/23/19 06:45 Pulse Rate 79 02/23/19 06:45 Respiratory Rate 20 02/23/19 06:45 Blood Pressure 139/94 02/23/19 06:45 O2 Sat by Pulse Oximetry (%) 71 L 02/23/19 05:43 Constitutional: Yes: Well Nourished, No Distress, Calm Eyes: Yes: WNL, Conjunctiva Clear, EOM Intact HENT: Yes: WNL, Atraumatic, Normocephalic Neck: Yes: WNL, Supple, Trachea Midline Cardiovascular: Yes: WNL, Regular Rate and Rhythm Respiratory: Yes: WNL, Regular, CTA Bilaterally Gastrointestinal: Yes: Soft, Hypoactive Bowel Sounds, Other (NGT to left nares with bilious draianage to LIWS. Colostomy with liquid ouptut. Stoma moist and pink) ...Rectal Exam: Yes: Deferred Genitourinary: Yes: Elizabeth Present (with clear yellow urine) Musculoskeletal: Yes: WNL Extremities: Yes: WNL Edema: No Peripheral Pulses WNL: Yes Integumentary: Yes: WNL Wound/Incision: Yes: Clean/Dry, Alla Intact Neurological: Yes: WNL, Alert, Oriented ...Motor Strength: WNL Psychiatric: Yes: WNL, Alert, Oriented Labs: INR, PTT INR 1.30 (0.83-1.09) H 02/21/19 06:10 - ....Imaging Cat Scan: Report Reviewed (Report Reviewed ((1) interval development of a small pneumoperitoneum with air seen within the upper abdomen bilaterally; (2) development of two contiguous abscesses (2.3cm, 1.9cm) within the left paracolic space; and (3) pericolonic edema at the level of the upper third of the sigmoid colon c/w acute diverticulitis)) Problem List - Problems (1) Acute diverticulitis Assessment/Plan: -s/p open colectomy with Hartmans precedure POD #3 Continue Zosyn and IV metronidazole maintain NPO Code(s): K57.92 - DVTRCLI OF INTEST, PART UNSP, W/O PERF OR ABSCESS W/O BLEED (2) Nausea vomiting and diarrhea Assessment/Plan: intermittent nausea, no vomiting NGT in place to LIWS Code(s): R11.2 - NAUSEA WITH VOMITING, UNSPECIFIED; R19.7 - DIARRHEA, UNSPECIFIED (3) Idiopathic angioedema Assessment/Plan: -stable -followed by an creative assistant; for flares at home takes PO levocetirizine and PO prednisone Code(s): T78.3XXA - ANGIONEUROTIC EDEMA, INITIAL ENCOUNTER (4) Anxiety Assessment/Plan: continue home doses of klonopin and prozac after surgery and able to take PO ativan IV PRN Code(s): F41.9 - ANXIETY DISORDER, UNSPECIFIED (5) Prophylactic measure Assessment/Plan: FEN IVF at 125cc/hr NPO monitor electolytes DVT lovenox sq Dispo Maintain as in patient full code discharge planning Code(s): Z29.9 - ENCOUNTER FOR PROPHYLACTIC MEASURES, UNSPECIFIED (6) Colostomy care Assessment/Plan: stoma moist and pick monitor output colostome care as per nursing Visit type - Emergency Visit Emergency Visit: Yes ED Registration Date: 02/19/19 Care time: The patient presented to the Emergency Department on the above date and was hospitalized for further evaluation of their emergent condition. - New Patient This patient is new to me today: No - Critical Care Critical Care patient: No - Discharge Referral Referred to [facility] Med P.C.: No
[2019-02-23 07:50] LABS: BASO % 0.4 % (0-2.0); EOS % 3.1 % (0-4.5); HEMATOCRIT 39.6 % (35.4-49); HEMOGLOBIN 13.5 GM/dL (11.7-16.9); MCHC 34.1 g/dl (32.0-35.9); MEAN CELL VOLUME 85.2 fl (80-96); MONO % 9.5 % (3.8-10.2); PLATELET COUNT 160 K/MM3 (134-434); RBC 4.65 M/mm3 (4.00-5.60); RDW 12.6 % (11.9-15.9); WHITE BLOOD COUNT 6.7 K/mm3 (4.0-10.0)
--- NOTE | 2019-02-23 07:58 | PN ---
Progress Note, Physician History of Present Illness: patient stable no new issues - Current Medication List Current Medications: Active Medications Diazepam (Valium Injection -) 5 mg IVPUSH Q6H PRN PRN Reason: PAIN Last Admin: 02/21/19 23:14 Dose: 5 mg Hydromorphone HCl (Hydromorphone 10 Mg/50 Ml-Ns) 10 mg BI APPLICATION DEVELOPER BI APPLICATION DEVELOPER RAHUL; Protocol Stop: 02/27/19 16:35 Last Admin: 02/22/19 17:43 Dose: 10 mg Metronidazole (Flagyl 500mg Premixed Ivpb -) 500 mg in 100 mls @ 100 mls/hr IVPB Q8H-IV RAHUL Last Admin: 02/23/19 00:59 Dose: 100 mls/hr Lactated Ringer's (Lactated Ringers Solution) 1,000 mls @ 125 mls/hr IV ASDIR RAHUL Last Admin: 02/22/19 17:32 Dose: 125 mls/hr Piperacillin Sod/Tazobactam (Sod 3.375 gm/ Dextrose) 50 mls @ 100 mls/hr IVPB Q8H-IV RAHUL; Protocol Last Admin: 02/23/19 01:00 Dose: 100 mls/hr Lorazepam (Ativan Injection -) 0.5 mg IVPUSH Q8H PRN PRN Reason: ANXIETY Last Admin: 02/23/19 06:51 Dose: 0.5 mg - Objective Vital Signs: Vital Signs Temperature 99.1 F 02/23/19 06:45 Pulse Rate 79 02/23/19 06:45 Respiratory Rate 20 02/23/19 06:45 Blood Pressure 139/94 02/23/19 06:45 O2 Sat by Pulse Oximetry (%) 71 L 02/23/19 05:43 Constitutional: Yes: No Distress, Calm Respiratory: Yes: Regular, CTA Bilaterally Gastrointestinal: Yes: Normal Bowel Sounds, Soft Musculoskeletal: Yes: WNL Extremities: Yes: WNL Neurological: Yes: Alert, Oriented Psychiatric: Yes: Alert, Oriented Labs: INR, PTT INR 1.30 (0.83-1.09) H 02/21/19 06:10 Assessment/Plan Assessment/Plan Problem List - Problems (1) Diverticulitis of intestine with abscess Assessment/Plan: Code(s): K57.80 - DVTRCLI OF INTEST, PART UNSP, W PERF AND ABSCESS W/O BLEED Qualifiers: Diverticulitis site: large intestine Diverticulitis bleeding: without bleeding Qualified Code(s): K57.20 - Diverticulitis of large intestine with perforation and abscess without bleeding (2) LLQ abdominal pain Code(s): R10.32 - LEFT LOWER QUADRANT PAIN (3) Nausea vomiting and diarrhea Code(s): R11.2 - NAUSEA WITH VOMITING, UNSPECIFIED; R19.7 - DIARRHEA, UNSPECIFIED (4) Panic anxiety syndrome Code(s): F41.0 - PANIC DISORDER [EPISODIC PAROXYSMAL ANXIETY] plan npo hydration iv abx surgery rest as per the team
[2019-02-23 08:24] LABS: ALBUMIN 2.8 g/dl (3.4-5.0); BILIRUBIN,TOTAL 0.6 mg/dL (0.2-1); BLOOD UREA NITROGEN 11.5 mg/dL (7-18); CALCIUM 8.1 mg/dL (8.5-10.1); CREATININE 0.6 mg/dL (0.55-1.3); MAGNESIUM 1.8 mg/dL (1.8-2.4); POTASSIUM 3.6 mmol/L (3.5-5.1); TOT PROT 5.8 g/dl (6.4-8.2)
[2019-02-23] MEDS ORDERED: PIPERACILLIN/TAZOBACTAM 3.375 GM VIAL IVPB ONE ×2 (08:36→16:47)
[2019-02-23] MEDS ORDERED: DEXTROSE 5%-WATER - 50 ML IVPB ONE ×2 (08:36→16:47)
[2019-02-23] MEDS: LACTATED RINGERS SOLUTION 1,000 ML IV SCH (09:57)
[2019-02-23] MEDS: HYDROmorphone *PCA* 10MG/50ML DISP.SYRIN PCA SCH ×2 (11:17→17:34)
--- NOTE | 2019-02-23 12:59 | PN ---
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 Presented to the ED earlier today for evaluation of LLQ pain that began acutely at 4am this morning. Patient was hospitalized at [place] from 11/11-11/18/18 with diverticulitis with a small abscess. he has been stable postoperatively. He had an episode of near syncope when the tapia was removed due to urinary retention. - Current Medication List Current Medications: Active Medications Diazepam (Valium Injection -) 5 mg IVPUSH Q6H PRN PRN Reason: PAIN Last Admin: 02/21/19 23:14 Dose: 5 mg Hydromorphone HCl (Hydromorphone 10 Mg/50 Ml-Ns) 10 mg DYEING MACHINE BACK TENDER DYEING MACHINE BACK TENDER RAHUL; Protocol Stop: 02/27/19 16:35 Last Admin: 02/23/19 11:17 Dose: 10 mg Metronidazole (Flagyl 500mg Premixed Ivpb -) 500 mg in 100 mls @ 100 mls/hr IVPB Q8H-IV RAHUL Last Admin: 02/23/19 09:55 Dose: 100 mls/hr Lactated Ringer's (Lactated Ringers Solution) 1,000 mls @ 125 mls/hr IV ASDIR RAHUL Last Admin: 02/23/19 09:57 Dose: 125 mls/hr Piperacillin Sod/Tazobactam (Sod 3.375 gm/ Dextrose) 50 mls @ 100 mls/hr IVPB Q8H-IV RAHUL; Protocol Last Admin: 02/23/19 09:56 Dose: 100 mls/hr Lorazepam (Ativan Injection -) 0.5 mg IVPUSH Q8H PRN PRN Reason: ANXIETY Last Admin: 02/23/19 06:51 Dose: 0.5 mg - Objective Vital Signs: Vital Signs Temperature 98.4 F 02/23/19 10:00 Pulse Rate 73 02/23/19 11:47 Respiratory Rate 18 02/23/19 11:47 Blood Pressure 132/85 02/23/19 11:47 O2 Sat by Pulse Oximetry (%) 96 02/23/19 11:47 Vital Signs Period Temp Pulse Resp BP Sys/Domingo Pulse Ox Last 24 Hr 98.3 F-99.1 F 64-110 18-20 128-139/64-96 71-102 Intake & Output 02/22/19 02/23/19 02/23/19 23:59 07:59 15:59 Intake Total 2135 1100 Output Total 200 1000 Balance 1935 100 Weight 187 lb 6 oz Intake: IV 1885 900 Lactated Ringers Solution 1885 900 1,000 ml @ 125 mls/hr IV ASDIR RAHUL Rx#: [id number] IVPB 250 200 Output: Urine 200 1000 Tapia 200 1000 Other: Voiding Method Indwelling Catheter Indwelling Catheter Constitutional: Yes: Well Nourished, No Distress, Calm Eyes: Yes: Conjunctiva Clear, EOM Intact HENT: Yes: Atraumatic, Normocephalic Neck: Yes: Supple, Trachea Midline Cardiovascular: Yes: Regular Rate and Rhythm, S1, S2 Respiratory: Yes: Regular, CTA Bilaterally. No: Cough Gastrointestinal: Yes: Soft, Hypoactive Bowel Sounds, Tenderness (incsional midline). No: Distention, Tenderness, Rebound ...Rectal Exam: No: Deferred Genitourinary: No: CVA Tenderness - Left, CVA Tenderness - Right Breast(s): No: Mass, Skin Changes Musculoskeletal: No: Muscle Pain, Muscle Weakness Extremities: No: Cool, Cyanosis Edema: No Peripheral Pulses WNL: Yes Peripheral Pulses: Left Radial: 2+, Right Radial: 2+, Left Doralis Pedis: 2+, Right Dorsalis Pedis: 2+, Left Femoral: 2+, Right Femoral: 2+ Integumentary: No: Erythema, Incision, Jaundice Wound/Incision: Yes: Clean/Dry, Well Approximated, Alla Intact, Open to air Neurological: Yes: Alert, Oriented Psychiatric: Yes: Alert, Oriented Labs: CBC, BMP 02/23/19 07:15 02/23/19 07:15 INR, PTT INR 1.30 (0.83-1.09) H 02/21/19 06:10 Problem List - Problems (1) Perforated diverticulum of large intestine Assessment/Plan: 48yo Acute perforated Diverticulitis with localized peritonitis, POD#3 s/p Eliud's Procedure, colostomy not yet functional. NPO and IVF hydration NGT continue Discontinue tapia - give urinal add clinamix OOB and ambulate continue broad spectrum IV antibiotics will follow Code(s): K57.20 - DVTRCLI OF LG INT W PERFORATION AND ABSCESS W/O BLEEDING (2) LLQ abdominal pain Code(s): R10.32 - LEFT LOWER QUADRANT PAIN (3) Anxiety Code(s): F41.9 - ANXIETY DISORDER, UNSPECIFIED (4) Idiopathic angioedema Code(s): T78.3XXA - ANGIONEUROTIC EDEMA, INITIAL ENCOUNTER (5) Panic anxiety syndrome Code(s): F41.0 - PANIC DISORDER [EPISODIC PAROXYSMAL ANXIETY]
--- NOTE | 2019-02-23 14:39 | PN ---
Progress Note (short form) - Note Progress Note: Patient stable and c/o pain score of 2-3/10 on rest on Dilaudid FEDERAL MEDIATOR.Patient still NPO so will continue FEDERAL MEDIATOR today and will f/u tomorrow.
[2019-02-23] MEDS: AMINO ACIDS 4.25%/D5W 1,000 ML IV SCH (17:33)
[2019-02-24] MEDS ORDERED: NALOXONE HCL 0.4 MG/ML VIAL IVPUSH ONE (00:08)
[2019-02-24 00:36] LABS: BASO % 0.8 % (0-2.0); EOS % 4.6 % (0-4.5); HEMATOCRIT 44.3 % (35.4-49); HEMOGLOBIN 15.1 GM/dL (11.7-16.9); LYMPH % 16.4 % (8-40); MCHC 34.2 g/dl (32.0-35.9); MEAN CELL VOLUME 84.8 fl (80-96); MEAN PLT VOLUME 7.7 fl (7.5-11.1); MONO % 7.5 % (3.8-10.2); NEUT % 70.7 % (42.8-82.8); PLATELET COUNT 207 K/MM3 (134-434); RBC 5.22 M/mm3 (4.00-5.60); RDW 12.8 % (11.9-15.9); WHITE BLOOD COUNT 6.8 K/mm3 (4.0-10.0)
[2019-02-24 00:51] LABS: INR 1.29 (0.83-1.09); PROTHROMBIN TIME (PATIENT) 15.3 SEC (9.7-13.0)
[2019-02-24 00:54] LABS: ACTIVATED PTT 42.1 SECONDS (25.2-36.5)
[2019-02-24 01:01] LABS: ALBUMIN 3.2 g/dl (3.4-5.0); BILIRUBIN,TOTAL 0.7 mg/dL (0.2-1); BLOOD UREA NITROGEN 13.5 mg/dL (7-18); CALCIUM 8.9 mg/dL (8.5-10.1); CREATININE 0.8 mg/dL (0.55-1.3); POTASSIUM 3.8 mmol/L (3.5-5.1); TOT PROT 6.8 g/dl (6.4-8.2)
[2019-02-24] MEDS ORDERED: PIPERACILLIN/TAZOBACTAM 3.375 GM VIAL IVPB ONE ×3 (01:25→17:13)
[2019-02-24] MEDS ORDERED: DEXTROSE 5%-WATER - 50 ML IVPB ONE ×3 (01:25→17:14)
[2019-02-24] MEDS: AMINO ACIDS 4.25%/D5W 1,000 ML IV SCH ×2 (01:39→14:59)
[2019-02-24] MEDS: PIPERACILLIN/TAZOB 3.375 GM 3.375 GM in DEXTROSE 5%-WATER - 50 ML IVPB SCH ×3 (01:39→17:25)
[2019-02-24] MEDS ORDERED: LACTATED RINGERS SOLUTION 1000 ML INFUS.BAG IV ONE (02:19)
--- NOTE | 2019-02-24 03:25 | RAPID ---
Physical Examination Vital Signs: Vital Signs Temperature 98.2 F 02/24/19 02:00 Pulse Rate 91 H 02/24/19 02:00 Respiratory Rate 18 02/24/19 02:03 Blood Pressure 148/92 02/24/19 02:00 O2 Sat by Pulse Oximetry (%) 97 02/24/19 02:03 Constitutional: Yes: Well Nourished, Anxious, Diaphoresis, Mild Distress Eyes: Yes: WNL, Conjunctiva Clear HENT: Yes: Atraumatic, Normocephalic Cardiovascular: Yes: Tachycardia Respiratory: Yes: Regular Gastrointestinal: Yes: Abdomen, Obese, Other (soft, ND, nonTTP [id number], midline david intact w/o surrounding erythema; LLQ with ostomy in place, mild gas in pouch, ss output) Renal/: Yes: WNL Breast(s): Yes: WNL Musculoskeletal: Yes: WNL Extremities: Yes: Other (moving extremities spontaneously, following commands) Edema: No Wound/Incision: Yes: Clean/Dry, [place] Intact Neurological: Yes: Confusion (A&O x3) ...Motor Strength: WNL Labs: CBC, BMP 02/24/19 00:01 02/24/19 00:01 Rapid Response - Rapid Response Assessment: 48M w/ complicated diverticulitis POD#4 s/p Eliud's Procedure. Rapid response called for AMS(A&Ox3), diaphoresis, tachycardia. On zosyn, flagyl IV, day 5. Patient was not oriented to name, place, date. AMS possibly 2/2 opioid usage Outcome: -stat labs: CBC, BMP, Mg, Phos, troponin, POCT glucose -stat CTH -stat EKG Recommendations/Interventions: - discontinued dilaudid WASH OPERATOR Plan: -resume pain meds PRN when AMS improves -fu CTH
[2019-02-24 07:29] LABS: BASO % 0.4 % (0-2.0); EOS % 2.9 % (0-4.5); HEMATOCRIT 41.6 % (35.4-49); HEMOGLOBIN 14.4 GM/dL (11.7-16.9); LYMPH % 9.8 % (8-40); MCH 29.2 pg (25.7-33.7); MCHC 34.7 g/dl (32.0-35.9); MEAN CELL VOLUME 84.4 fl (80-96); MEAN PLT VOLUME 7.9 fl (7.5-11.1); MONO % 8.6 % (3.8-10.2); NEUT % 78.3 % (42.8-82.8); PLATELET COUNT 199 K/MM3 (134-434); RBC 4.93 M/mm3 (4.00-5.60); RDW 12.8 % (11.9-15.9); WHITE BLOOD COUNT 7.2 K/mm3 (4.0-10.0)
--- NOTE | 2019-02-24 08:34 | PN ---
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 Presented to the ED earlier today for evaluation of LLQ pain that began acutely at 4am this morning. Patient was hospitalized at [facility] from 11/11-11/18/18 with diverticulitis with a small abscess. He was treated with IV antibiotics. The abscess was considered too small to drain. Since then, the patient has been in good health, adhering to a strict diet. He had a followup colonoscopy which was unremarkable. Pain came on suddenly and severely. CTAP with contrast shows (1) interval development of a small pneumoperitoneum with air seen within the upper abdomen bilaterally; (2) development of two contiguous abscesses (2.3cm, 1.9cm) within the left paracolic space; and (3) pericolonic edema at the level of the upper third of the sigmoid colon c/w acute diverticulitis. Patient denies fever, sweats, chills. POD#3 from ex lap with Hatmans procedure Around 0200 a rapid response was called by nurse when patient has a vasovagal epsiode with mental status changes. Pupils were noted to be pinpoint and .04 narcan was given. JOURNEYMAN MECHANIC was stopped and HCT performed with no acute pathology. Transfered to telemetry floor for additional monitoring - Current Medication List Current Medications: Active Medications Diazepam (Valium Injection -) 5 mg IVPUSH Q6H PRN PRN Reason: PAIN Last Admin: 02/21/19 23:14 Dose: 5 mg Metronidazole (Flagyl 500mg Premixed Ivpb -) 500 mg in 100 mls @ 100 mls/hr IVPB Q8H-IV RAHUL Last Admin: 02/24/19 04:07 Dose: 100 mls/hr Piperacillin Sod/Tazobactam (Sod 3.375 gm/ Dextrose) 50 mls @ 100 mls/hr IVPB Q8H-IV RAHUL; Protocol Last Admin: 02/24/19 01:39 Dose: 100 mls/hr Amino Acids (Clinimix -) 1,000 mls @ 84 mls/hr IV Q12H RAHUL Last Admin: 02/24/19 01:39 Dose: 84 mls/hr - Objective Vital Signs: Vital Signs Temperature 98.8 F 02/24/19 05:55 Pulse Rate 104 H 02/24/19 05:55 Respiratory Rate 18 02/24/19 05:55 Blood Pressure 131/88 02/24/19 05:55 O2 Sat by Pulse Oximetry (%) 97 02/24/19 02:03 Constitutional: Yes: Well Nourished, No Distress, Anxious, Mild Distress Eyes: Yes: WNL, Conjunctiva Clear, EOM Intact HENT: Yes: WNL, Atraumatic, Normocephalic Neck: Yes: WNL, Supple, Trachea Midline Cardiovascular: Yes: WNL, Regular Rate and Rhythm Respiratory: Yes: WNL, Regular, CTA Bilaterally Gastrointestinal: Yes: Hypoactive Bowel Sounds (NGT since removed since last exam), Other (Colostomt noted to LLQ. Stoma pink and moist with liquid stool noted) ...Rectal Exam: Yes: Deferred Genitourinary: Yes: WNL Musculoskeletal: Yes: WNL Extremities: Yes: WNL Edema: No Peripheral Pulses WNL: Yes Integumentary: Yes: Other (Midline abdominal incision) Wound/Incision: Yes: Clean/Dry, [place] Intact Neurological: Yes: WNL, Alert, Oriented ...Motor Strength: WNL Psychiatric: Yes: WNL, Alert, Oriented Labs: CBC, BMP 02/24/19 06:30 02/24/19 00:01 INR, PTT INR 1.29 (0.83-1.09) H 02/24/19 00:01 - ....Imaging Cat Scan: Report Reviewed Problem List - Problems (1) Acute diverticulitis Assessment/Plan: -s/p open colectomy with Hartmans precedure POD #4 Continue Zosyn and IV metronidazole maintain NPO Code(s): K57.92 - DVTRCLI OF INTEST, PART UNSP, W/O PERF OR ABSCESS W/O BLEED (2) Nausea vomiting and diarrhea Assessment/Plan: intermittent nausea, no vomiting NGT removed last night Code(s): R11.2 - NAUSEA WITH VOMITING, UNSPECIFIED; R19.7 - DIARRHEA, UNSPECIFIED (3) Idiopathic angioedema Assessment/Plan: -stable -followed by an coding and reimbursement specialist; for flares at home takes PO levocetirizine and PO prednisone Code(s): T78.3XXA - ANGIONEUROTIC EDEMA, INITIAL ENCOUNTER (4) Anxiety Assessment/Plan: continue home doses of klonopin and prozac after surgery and able to take PO Patient more anxious today after events on this morning, continue ativan IV PRN offered emotional support to patient and family Code(s): F41.9 - ANXIETY DISORDER, UNSPECIFIED (5) Prophylactic measure Assessment/Plan: FEN IVF at 125cc/hr NPO monitor electolytes DVT lovenox sq Dispo Maintain as in patient full code discharge planning Code(s): Z29.9 - ENCOUNTER FOR PROPHYLACTIC MEASURES, UNSPECIFIED (6) Colostomy care Assessment/Plan: stoma moist and pick monitor output colostomy care as per nursing (7) Vasovagal episode Assessment/Plan: 2 vasvagal episodes over last 48 hours JOURNEYMAN MECHANIC dc'd IV tylenol for pain PRN TTE ordered to assess LV function Neurology consultation greatly appreciate and will dp Carotid dopplers to r/o carotid stenosis continue on telemetry with close monitoring Code(s): R55 - SYNCOPE AND COLLAPSE Visit type - Emergency Visit Emergency Visit: Yes ED Registration Date: 02/19/19 Care time: The patient presented to the Emergency Department on the above date and was hospitalized for further evaluation of their emergent condition. - New Patient This patient is new to me today: No - Critical Care Critical Care patient: No - Discharge Referral Referred to [facility] No
[2019-02-24] MEDS ORDERED: LORazepam 2 MG/ML SDV VIAL IVPUSH PRN (09:19)
--- NOTE | 2019-02-24 09:33 | CONSULT ---
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 Presented to the ED at [facility] initially for evaluation of LLQ pain that began acutely at 4am morning of admission. Patient was hospitalized at [facility] from 11/11-11/18/18 with diverticulitis with a small abscess. He was treated with IV antibiotics. The abscess was considered too small to drain. Since then, the patient has been in good health, adhering to a strict diet. He had a followup colonoscopy which was unremarkable. New pain came on suddenly and severely. CTAP with contrast showed (1) interval development of a small pneumoperitoneum with air seen within the upper abdomen bilaterally; (2) development of two contiguous abscesses (2.3cm, 1.9cm) within the left paracolic space; and (3) pericolonic edema at the level of the upper third of the sigmoid colon c/w acute diverticulitis. Patient denies fever, sweats, chills. Patient sent to [place] for further management and per discussion with hospitalist he had colostomy procedure. However, has had multiple rapid response events with AMS and lethargy. Spoke with patient and father at bedside, both very concerned about events. CT head has been completed and no acute changes. Discussed with hospitalist to check carotid doppler to confirm no HD significant stenosis. Possibly due to medication (was given Dilaudid due to pain), pain has improved and now only on Tylenol. Recent Travel: No PAST MEDICAL HISTORY: Diverticulitis Idiopathic angioedema +/- mast cell activation syndrome Renal calculi (age 22) Depression/anxiety PAST SURGICAL HISTORY: None reported Social History: Smoking: no Alcohol: no Drugs: no Family History: ather age 70 h/o diverticulitis, HTN; mother age 71 with non- Hodgkins lymphoma x 15 years; sister a&w Allergies No Known Allergies Allergy (Verified 02/19/19 11:57) HOME MEDICATIONS: Home Medications Medication Instructions Recorded Clonazepam [Klonopin] 0.5 mg PO ASDIR PRN 11/09/18 Fluoxetine HCl [Prozac] 20 mg PO DAILY 11/09/18 traZODone HCL [Trazodone HCl] 50 mg PO HS 06/27/19 REVIEW OF SYSTEMS CONSTITUTIONAL: Absent: fever, chills, diaphoresis, generalized weakness, malaise, loss of appetite, weight change HEENT: Absent: rhinorrhea, nasal congestion, throat pain, throat swelling, difficulty swallowing, mouth swelling, ear pain, eye pain, visual changes CARDIOVASCULAR: Absent: chest pain, syncope, palpitations, irregular heart rate, lightheadedness , peripheral edema RESPIRATORY: Absent: cough, shortness of breath, dyspnea with exertion, orthopnea, wheezing, stridor, hemoptysis GASTROINTESTINAL: +LLQ pain Absent: abdominal distension, nausea, vomiting, diarrhea, constipation, melena, hematochezia GENITOURINARY: Absent: dysuria, frequency, urgency, hesitancy, hematuria, flank pain, genital pain MUSCULOSKELETAL: Absent: myalgia, arthralgia, joint swelling, back pain, neck pain SKIN: Absent: rash, itching, pallor HEMATOLOGIC/IMMUNOLOGIC: Absent: easy bleeding, easy bruising, lymphadenopathy, frequent infections ENDOCRINE: Absent: unexplained weight gain, unexplained weight loss, heat intolerance, cold intolerance NEUROLOGIC: Absent: headache, focal weakness or paresthesias, dizziness, unsteady gait, seizure, mental status changes, bladder or bowel incontinence PSYCHIATRIC: Absent: anxiety, depression, suicidal or homicidal ideation, hallucinations. PHYSICAL EXAMINATION Vital Signs Period Temp Pulse Resp BP Sys/Domingo Pulse Ox Last 24 Hr 97.8 F-99.2 F 70-104 18-20 120-148/76-92 96-97 GENERAL: Awake, alert, and fully oriented, in moderate distress secondary to pain. Pale, ill-appearing. HEAD: Normal with no signs of trauma. LUNGS: Breath sounds equal, clear to auscultation bilaterally. No wheezes, and no crackles. No accessory muscle use. HEART: Regular rate and rhythm, normal S1 and S2 ABDOMEN: LLQ tenderness, +guarding +rebound tenderness MUSCULOSKELETAL: Normal range of motion at all joints. No bony deformities or tenderness. No CVA tenderness. UPPER EXTREMITIES: 2+ pulses, warm, well-perfused. No cyanosis. No clubbing. No peripheral edema. LOWER EXTREMITIES: 2+ pulses, warm, well-perfused. No calf tenderness. No peripheral edema. NEUROLOGICAL: Cranial nerves II-XII intact. Normal speech. CBCD WBC 7.2 K/mm3 (4.0-10.0) 02/24/19 06:30 RBC 4.93 M/mm3 (4.00-5.60) 02/24/19 06:30 Hgb 14.4 GM/dL (11.7-16.9) 02/24/19 06:30 Hct 41.6 % (35.4-49) 02/24/19 06:30 MCV 84.4 fl (80-96) 02/24/19 06:30 MCHC 34.7 g/dl (32.0-35.9) 02/24/19 06:30 RDW 12.8 % (11.9-15.9) 02/24/19 06:30 Plt Count 199 K/MM3 (134-434) 02/24/19 06:30 MPV 7.9 fl (7.5-11.1) 02/24/19 06:30 CMP Sodium 137 mmol/L (136-145) 02/24/19 00:01 Potassium 3.8 mmol/L (3.5-5.1) 02/24/19 00:01 Chloride 100 mmol/L (98-107) 02/24/19 00:01 Carbon Dioxide 29 mmol/L (21-32) 02/24/19 00:01 Anion Gap 8 MMOL/L (8-16) 02/24/19 00:01 BUN 13.5 mg/dL (7-18) 02/24/19 00:01 Creatinine 0.8 mg/dL (0.55-1.3) 02/24/19 00:01 Random Glucose 116 mg/dL (74-106) H 02/24/19 00:01 Calcium 8.9 mg/dL (8.5-10.1) 02/24/19 00:01 Total Bilirubin 0.7 mg/dL (0.2-1) 02/24/19 00:01 AST 11 U/L (15-37) L 02/24/19 00:01 ALT 13 U/L (13-61) 02/24/19 00:01 Alkaline Phosphatase 71 U/L (45-117) 02/24/19 00:01 Total Protein 6.8 g/dl (6.4-8.2) 02/24/19 00:01 Albumin 3.2 g/dl (3.4-5.0) L 02/24/19 00:01 CARDIAC ENZYMES Creatine Kinase 114 U/L (26-308) 02/22/19 14:35 Troponin I < 0.02 ng/ml (0.00-0.05) 02/24/19 00:01 ASSESSMENT/PLAN 48 year-old male with a PMH significant for diverticulitis, 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 Presented to the ED at [facility] initially for evaluation of LLQ pain that began acutely at 4am morning of admission. Patient was hospitalized at [facility] from 11/11-11/18/18 with diverticulitis with a small abscess. He was treated with IV antibiotics. The abscess was considered too small to drain. Since then, the patient has been in good health, adhering to a strict diet. He had a followup colonoscopy which was unremarkable. New pain came on suddenly and severely. CTAP with contrast showed (1) interval development of a small pneumoperitoneum with air seen within the upper abdomen bilaterally; (2) development of two contiguous abscesses (2.3cm, 1.9cm) within the left paracolic space; and (3) pericolonic edema at the level of the upper third of the sigmoid colon c/w acute diverticulitis. Patient denies fever, sweats, chills. Patient sent to [place] for further management and per discussion with hospitalist he had colostomy procedure. However, has had multiple rapid response events with AMS and lethargy. Spoke with patient and father at bedside, both very concerned about events. CT head has been completed and no acute changes. Discussed with hospitalist to check carotid doppler to confirm no HD significant stenosis. Possibly due to medication (was given Dilaudid due to pain), pain has improved and now only on Tylenol. In agreement with this, continue hydration. Per family, they have not seen surgeon since procedure, recommend follow up. Monitor depression/anxiety, optimize as this may also further patient's symptomatology if not adequately controlled. Minimize sedatives as best able.
--- NOTE | 2019-02-24 11:46 | PN ---
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 Presented to the ED earlier today for evaluation of LLQ pain that began acutely at 4am this morning. Patient was hospitalized at [place] from 11/11-11/18/18 with diverticulitis with a small abscess. he has been stable postoperatively. He had an episode of near syncope vs. anxiety attack. - Current Medication List Current Medications: Active Medications Acetaminophen (Ofirmev Injection -) 1,000 mg IVPB Q6H PRN PRN Reason: PAIN 1-3 Diazepam (Valium Injection -) 5 mg IVPUSH Q6H PRN PRN Reason: PAIN Last Admin: 02/21/19 23:14 Dose: 5 mg Metronidazole (Flagyl 500mg Premixed Ivpb -) 500 mg in 100 mls @ 100 mls/hr IVPB Q8H-IV RAHUL Last Admin: 02/24/19 11:27 Dose: 100 mls/hr Piperacillin Sod/Tazobactam (Sod 3.375 gm/ Dextrose) 50 mls @ 100 mls/hr IVPB Q8H-IV RAHUL; Protocol Last Admin: 02/24/19 09:57 Dose: 100 mls/hr Amino Acids (Clinimix -) 1,000 mls @ 84 mls/hr IV Q12H RAHUL Last Admin: 02/24/19 01:39 Dose: 84 mls/hr Lorazepam (Ativan Injection -) 0.5 mg IVPUSH Q6H PRN PRN Reason: ANXIETY - Objective Vital Signs: Vital Signs Temperature 98.5 F 02/24/19 11:29 Pulse Rate 82 02/24/19 10:01 Respiratory Rate 17 02/24/19 10:01 Blood Pressure 117/67 02/24/19 10:01 O2 Sat by Pulse Oximetry (%) 97 02/24/19 02:03 Constitutional: Yes: Well Nourished, No Distress, Anxious, Diaphoresis Eyes: Yes: Conjunctiva Clear, EOM Intact HENT: Yes: Atraumatic, Normocephalic Neck: Yes: Supple, Trachea Midline Cardiovascular: Yes: Regular Rate and Rhythm, S1 Respiratory: Yes: Regular, CTA Bilaterally Gastrointestinal: Yes: Normal Bowel Sounds, Soft, Tenderness (incisional), Other (viable and functional colostomy) ...Rectal Exam: Yes: Deferred Genitourinary: No: Anuria, CVA Tenderness - Left, CVA Tenderness - Right Musculoskeletal: No: Muscle Pain, Muscle Weakness Extremities: No: Cool, Cyanosis Edema: No Edema: LLE: Trace Peripheral Pulses WNL: Yes Peripheral Pulses: Left Radial: 2+, Right Radial: 2+, Left Doralis Pedis: 2+, Right Dorsalis Pedis: 2+, Left Femoral: 2+, Right Femoral: 2+ Integumentary: Yes: Incision. No: Erythema, Jaundice Wound/Incision: Yes: Clean/Dry, Well Approximated, [place]a Intact, Open to air Neurological: Yes: Alert, Oriented Psychiatric: Yes: Alert, Oriented, Other (anxious) Labs: CBC, BMP 02/24/19 06:30 02/24/19 00:01 INR, PTT INR 1.29 (0.83-1.09) H 02/24/19 00:01 Problem List - Problems (1) Perforated diverticulum of large intestine Assessment/Plan: 48yo Acute perforated Diverticulitis with localized peritonitis, POD#4 s/p Eliud's Procedure, colostomy not yet functional. management per primary team clear liquid prostat replete electrolytes OOB and ambulate consider change to oral antibiotics will follow Code(s): K57.20 - DVTRCLI OF LG INT W PERFORATION AND ABSCESS W/O BLEEDING (2) LLQ abdominal pain Code(s): R10.32 - LEFT LOWER QUADRANT PAIN (3) Anxiety Code(s): F41.9 - ANXIETY DISORDER, UNSPECIFIED (4) Idiopathic angioedema Code(s): T78.3XXA - ANGIONEUROTIC EDEMA, INITIAL ENCOUNTER (5) Panic anxiety syndrome Code(s): F41.0 - PANIC DISORDER [EPISODIC PAROXYSMAL ANXIETY]
--- NOTE | 2019-02-24 12:36 | ECHO ---
Name: NORMAN KENNEDY Exam:Adult Echocardiogram Study Date: 02/24/2019 10:54 AM Age: 48 yrs Reason For Study: SYNCOPE Height: 69 in Weight: 187 lb BSA: 2.0 m2 MMode/2D Measurements & Calculations IVSd: 0.98 cm Ao root diam: 3.4 cm LVIDd: 4.4 cm LA dimension: 2.7 cm LVIDs: 2.8 cm LVPWd: 1.1 cm EDV(Teich): 86.9 ml LVOT diam: 2.3 cm ESV(Teich): 29.3 ml Doppler Measurements & Calculations MV E max lucius: 45.9 cm/sec Med Peak E' Lucius: 7.9 cm/sec MV A max lucius: 68.6 cm/sec Med E/e': 5.8 MV E/A: 0.67 Lat Peak E' Lucius: 13.0 cm/sec Lat E/e': 3.5 Procedure A two-dimensional transthoracic echocardiogram with color flow and Doppler was performed. The study w as technically difficult with many images being suboptimal in quality. The patient was in normal sinus r hythm during the exam. Left Ventricle The left ventricle is normal in size. The left ventricle is hyperdynamic. Ejection Fraction = 70%. E/ A reversal consistent with but not diagnostic of poor LV compliance. Right Ventricle The right ventricle is not well visualized. The right ventricle is grossly normal size. The right ehsan tricular systolic function is grossly normal. Atria The left atrial size is normal. Right atrial size is normal. Mitral Valve The mitral valve is normal. There is no mitral regurgitation noted. Tricuspid Valve The tricuspid valve is normal. There is trace tricuspid regurgitation. Aortic Valve The aortic valve is not well visualized. The aortic valve opens well. No hemodynamically significant valvular aortic stenosis. No aortic regurgitation is present. Pulmonic Valve The pulmonic valve is not well visualized. Great Vessels The aortic root is normal size. Pericardium/Pleura There is no pericardial effusion. Interpretation Summary The left ventricle is hyperdynamic. E/A reversal consistent with but not diagnostic of poor LV compliance The right ventricular systolic function is grossly normal. There is trace tricuspid regurgitation. There is no pericardial effusion. MD Yonatan Mills 02/24/2019 12:36 PM
--- NOTE | 2019-02-24 13:09 | PN ---
Progress Note, Physician - Current Medication List Current Medications: Active Medications Acetaminophen (Ofirmev Injection -) 1,000 mg IVPB Q6H PRN PRN Reason: PAIN 1-3 Amino Acids (Prosource No Carb Liquid Pkt) 30 ml PO BID@0800,1730 ARHUL Diazepam (Valium Injection -) 5 mg IVPUSH Q6H PRN PRN Reason: PAIN Last Admin: 02/21/19 23:14 Dose: 5 mg Metronidazole (Flagyl 500mg Premixed Ivpb -) 500 mg in 100 mls @ 100 mls/hr IVPB Q8H-IV RAHUL Last Admin: 02/24/19 11:27 Dose: 100 mls/hr Piperacillin Sod/Tazobactam (Sod 3.375 gm/ Dextrose) 50 mls @ 100 mls/hr IVPB Q8H-IV RAHUL; Protocol Last Admin: 02/24/19 09:57 Dose: 100 mls/hr Amino Acids (Clinimix -) 1,000 mls @ 84 mls/hr IV Q12H RAHUL Last Admin: 02/24/19 01:39 Dose: 84 mls/hr Lorazepam (Ativan Injection -) 0.5 mg IVPUSH Q6H PRN PRN Reason: ANXIETY - Objective Vital Signs: Vital Signs Temperature 98.5 F 02/24/19 11:29 Pulse Rate 82 02/24/19 10:01 Respiratory Rate 17 02/24/19 10:01 Blood Pressure 117/67 02/24/19 10:01 O2 Sat by Pulse Oximetry (%) 97 02/24/19 02:03 Labs: CBC, BMP 02/24/19 06:30 02/24/19 00:01 INR, PTT INR 1.29 (0.83-1.09) H 02/24/19 00:01
--- NOTE | 2019-02-24 13:35 | HOSP ---
Physical Examination Vital Signs: Vital Signs Temperature 98.5 F 02/24/19 11:29 Pulse Rate 82 02/24/19 10:01 Respiratory Rate 17 02/24/19 10:01 Blood Pressure 117/67 02/24/19 10:01 O2 Sat by Pulse Oximetry (%) 97 02/24/19 02:03 Labs: CBC, BMP 02/24/19 06:30 02/24/19 00:01 Hospitalist Encounter Assessment: Informed by the family that Dr Mondragon was accepting to patient for transfer. Spoke to Dr Arias and he can not accept patient at this time. Informed the patient and father Sandro that if they would like to explore other physicians we will assist them in any way. TTE complete and unremarkable with ER 65% and trace TR/MR. Carotid dopplers pending. Patient will remain on telemetry monitoring and will have a low threshold to higher level of care if needed.
--- NOTE | 2019-02-24 13:54 | EKG ---
Test Reason : Blood Pressure : / mmHG Vent. Rate : 105 BPM Atrial Rate : 105 BPM P-R Int : 148 ms QRS Dur : 084 ms QT Int : 350 ms P-R-T Axes : 038 008 008 degrees QTc Int : 462 ms POOR DATA QUALITY, INTERPRETATION MAY BE ADVERSELY AFFECTED SINUS TACHYCARDIA NONSPECIFIC ST AND T WAVE ABNORMALITY ABNORMAL ECG WHEN COMPARED WITH ECG OF 22-FEB-2019 13:13, VENT. RATE HAS INCREASED BY [address] NOW DEPRESSED IN ANTERIOR LEADS NONSPECIFIC T WAVE ABNORMALITY, WORSE IN INFERIOR LEADS NONSPECIFIC T WAVE ABNORMALITY NOW EVIDENT IN ANTERIOR LEADS Confirmed by MD HELDER, DAVON ([id number]) on 02/24/2019 1:54:16 PM Referred By: Confirmed By:DAVON PENDLETON MD
[2019-02-24 15:36] VITALS: BMI 27.6
--- NOTE | 2019-02-24 16:40 | PATH ---
Surgical Pathology Report Patient Name: NORMAN KENNEDY [facility]. Rec. #: [id number] /Age/Gender: 1970 (Age: 48) / M Account: [id number] Location: 4 SO PEDS/ADOL Taken: 02/20/2019 Received: 02/23/2019 Reported: 02/24/2019 Physicians: Amos Englihs M.D. Specimen(s) Received SIGMOID COLON Clinical History Diverticulitis Final Diagnosis SIGMOID COLON, RESECTION: SEGMENT OF COLON WITH DIVERTICULOSIS, ACUTE DIVERTICULTIS, FOCAL TRANSMURAL ACUTE INFLAMMATION, AND ASSOCIATED ABSCESS FORMATION. MARGINS OF RESECTION ARE VIABLE. Electronically Signed Lolis Orourke M.D. Gross Description Received in formalin labeled "sigmoid colon," is an 11 cm in length portion of bowel with 2 stapled mucosal margins and abundant attached fat. The serosa is fox-buitrago with focal exudate. No definitive rupture site is identified. The mucosa is fox with normal folds. No mucosal masses are identified. Sectioning reveals multiple diverticula, particularly in the area of the exudate. Honey Grader And Blender sections are submitted in 9 cassettes as follows: 7-7-[id number] stapled mucosal margins; 8-8-[id number] diverticula. /02/23/2019 saudi02/23/2019
[2019-02-24] MEDS: AMINO ACIDS/PROTEIN HYDROLYS 30 ML LIQUID.PKT PO SCH (17:18)
--- NOTE | 2019-02-24 22:48 | HOSP ---
Physical Examination Vital Signs: Vital Signs Temperature 98.5 F 02/24/19 17:00 Pulse Rate 82 02/24/19 17:00 Respiratory Rate 17 02/24/19 17:00 Blood Pressure 144/92 02/24/19 17:00 O2 Sat by Pulse Oximetry (%) 98 02/24/19 09:00 Labs: CBC, BMP 02/24/19 06:30 02/24/19 00:01 Hospitalist Encounter Assessment: TTE done an unremarkable with EF 70%, no MR trace TR. Carotid dopplers with no stenosis BL. Ruled out cardiac (neg TTE), neurological (HCT negative) and absensce of carotid stenosis as source of vasovagal/syncopal episodes. CARD DOFFER stopped earlier and pain well managed on IV tylenol. will continue to monitor on telemetry
[2019-02-24] MEDS: ACETAMINOPHEN 1000 MG/100 ML VIAL (NON FORMULARY) IVPB PRN (23:30)
[2019-02-25] MEDS ORDERED: PT OWN MED DRAWER 7, Y5N ONE ×2 (00:52→19:27)
[2019-02-25] MEDS ORDERED: PIPERACILLIN/TAZOBACTAM 3.375 GM VIAL IVPB ONE ×3 (00:53→17:15)
[2019-02-25] MEDS ORDERED: DEXTROSE 5%-WATER - 50 ML IVPB ONE ×3 (00:53→17:15)
[2019-02-25] MEDS: AMINO ACIDS 4.25%/D5W 1,000 ML IV SCH ×2 (01:00→12:44)
[2019-02-25] MEDS: PIPERACILLIN/TAZOB 3.375 GM 3.375 GM in DEXTROSE 5%-WATER - 50 ML IVPB SCH ×3 (01:00→17:18)
[2019-02-25] MEDS: ACETAMINOPHEN 1000 MG/100 ML VIAL (NON FORMULARY) IVPB PRN (05:17)
[2019-02-25 06:20] LABS: BASO % 0.4 % (0-2.0); EOS % 7.4 % (0-4.5); HEMOGLOBIN 14.5 GM/dL (11.7-16.9); LYMPH % 13.6 % (8-40); MCH 28.5 pg (25.7-33.7); MCHC 33.8 g/dl (32.0-35.9); MEAN CELL VOLUME 84.3 fl (80-96); MEAN PLT VOLUME 7.9 fl (7.5-11.1); MONO % 9.2 % (3.8-10.2); NEUT % 69.4 % (42.8-82.8); PLATELET COUNT 207 K/MM3 (134-434); RDW 12.9 % (11.9-15.9); WHITE BLOOD COUNT 6.7 K/mm3 (4.0-10.0)
[2019-02-25 06:45] LABS: ALBUMIN 2.9 g/dl (3.4-5.0); BILIRUBIN,TOTAL 0.5 mg/dL (0.2-1); BLOOD UREA NITROGEN 13.6 mg/dL (7-18); CALCIUM 8.6 mg/dL (8.5-10.1); CREATININE 0.6 mg/dL (0.55-1.3); PHOSPHOROUS 2.8 mg/dL (2.5-4.9); POTASSIUM 3.4 mmol/L (3.5-5.1); TOT PROT 6.2 g/dl (6.4-8.2)
--- NOTE | 2019-02-25 07:14 | PN ---
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 Presented to the ED earlier today for evaluation of LLQ pain that began acutely at 4am this morning. Patient was hospitalized at [place] from 11/11-11/18/18 with diverticulitis with a small abscess. he has been stable postoperatively. He had an episode of near syncope vs. anxiety attack. - Current Medication List Current Medications: Active Medications Acetaminophen (Ofirmev Injection -) 1,000 mg IVPB Q6H PRN PRN Reason: PAIN 1-3 Last Admin: 02/25/19 05:17 Dose: 1,000 mg Amino Acids (Prosource No Carb Liquid Pkt) 30 ml PO BID@0800,1730 RAHUL Last Admin: 02/24/19 17:18 Dose: 30 ml Metronidazole (Flagyl 500mg Premixed Ivpb -) 500 mg in 100 mls @ 100 mls/hr IVPB Q8H-IV RAHUL Last Admin: 02/25/19 01:01 Dose: 100 mls/hr Piperacillin Sod/Tazobactam (Sod 3.375 gm/ Dextrose) 50 mls @ 100 mls/hr IVPB Q8H-IV RAHUL; Protocol Last Admin: 02/25/19 01:00 Dose: 100 mls/hr Amino Acids (Clinimix -) 1,000 mls @ 84 mls/hr IV Q12H RAHUL Last Admin: 02/25/19 01:00 Dose: 84 mls/hr Lorazepam (Ativan Injection -) 0.5 mg IVPUSH Q6H PRN PRN Reason: ANXIETY - Objective Vital Signs: Vital Signs Temperature 98.2 F 02/25/19 06:00 Pulse Rate 70 02/25/19 06:00 Respiratory Rate 20 02/25/19 06:00 Blood Pressure 134/90 02/25/19 06:00 O2 Sat by Pulse Oximetry (%) 99 02/24/19 21:00 Vital Signs Period Temp Pulse Resp BP Sys/Domingo Pulse Ox Last 24 Hr 97.3 F-98.5 F 70-84 16-20 117-144/67-92 98-99 Intake & Output 02/24/19 02/24/19 02/25/19 15:59 23:59 07:59 Intake Total 822 640 838 Output Total 750 Balance 822 640 88 Weight 187 lb Intake: IV 672 420 588 Clinimix @ 84cc/h 672 420 588 IVPB 150 100 250 Oral 120 Output: Urine 750 Void 750 Other: Voiding Method Urinal Urinal Bowel Movement Yes: colostomy Yes: colostomy Height 5 ft 9 in Body Mass Index (BMI) 27.6 Constitutional: Yes: Well Nourished, No Distress, Calm Eyes: Yes: Conjunctiva Clear, EOM Intact HENT: Yes: Atraumatic, Normocephalic Neck: Yes: Supple, Trachea Midline Cardiovascular: Yes: Regular Rate and Rhythm, S1, S2 Respiratory: Yes: Regular, CTA Bilaterally Gastrointestinal: Yes: Normal Bowel Sounds, Soft, Tenderness (incsional), Other (colostom) ...Rectal Exam: Yes: Deferred Genitourinary: No: CVA Tenderness - Left, CVA Tenderness - Right Musculoskeletal: No: Muscle Pain, Muscle Weakness Extremities: No: Cool, Cyanosis Edema: No Peripheral Pulses WNL: Yes Peripheral Pulses: Left Radial: 2+, Right Radial: 2+, Left Doralis Pedis: 2+, Right Dorsalis Pedis: 2+, Left Femoral: 2+, Right Femoral: 2+ Wound/Incision: Yes: Clean/Dry, Well Approximated, [place] Intact, Open to air Neurological: Yes: Alert, Oriented Psychiatric: Yes: Alert, Oriented Labs: CBC, BMP 02/25/19 05:20 02/25/19 05:20 INR, PTT INR 1.29 (0.83-1.09) H 02/24/19 00:01 Problem List - Problems (1) Perforated diverticulum of large intestine Assessment/Plan: 48yo Acute perforated Diverticulitis with localized peritonitis, POD#6 s/p Eliud's Procedure, colostomy now appears functional. management per primary team regular diet prostat replete electrolytes OOB and ambulate consider change to oral antibiotics colostomy teaching by nurse Discharge planning will follow Code(s): K57.20 - DVTRCLI OF LG INT W PERFORATION AND ABSCESS W/O BLEEDING (2) LLQ abdominal pain Code(s): R10.32 - LEFT LOWER QUADRANT PAIN (3) Anxiety Code(s): F41.9 - ANXIETY DISORDER, UNSPECIFIED (4) Idiopathic angioedema Code(s): T78.3XXA - ANGIONEUROTIC EDEMA, INITIAL ENCOUNTER Qualifiers: Encounter type: sequela Qualified Code(s): T78.3XXS - Angioneurotic edema, sequela (5) Panic anxiety syndrome Code(s): F41.0 - PANIC DISORDER [EPISODIC PAROXYSMAL ANXIETY]
[2019-02-25] MEDS ORDERED: POTASSIUM CHLORIDE ORAL LIQUID 20 MEQ/15 ML PO ONE (07:42)
--- NOTE | 2019-02-25 07:45 | PN ---
Progress Note, Physician Chief Complaint: no events overnight. 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 Presented to the ED earlier today for evaluation of LLQ pain that began acutely at 4am this morning. Patient was hospitalized at [place] from 11/11-11/18/18 with diverticulitis with a small abscess. He was treated with IV antibiotics. The abscess was considered too small to drain. Since then, the patient has been in good health, adhering to a strict diet. He had a followup colonoscopy which was unremarkable. Pain came on suddenly and severely. CTAP with contrast shows (1) interval development of a small pneumoperitoneum with air seen within the upper abdomen bilaterally; (2) development of two contiguous abscesses (2.3cm, 1.9cm) within the left paracolic space; and (3) pericolonic edema at the level of the upper third of the sigmoid colon c/w acute diverticulitis. Patient denies fever, sweats, chills. POD#3 from ex lap with Hatmans procedure Around 0200 a rapid response was called by nurse when patient has a vasovagal epsiode with mental status changes. Pupils were noted to be pinpoint and .04 narcan was given. [employer]AFF [employer] OFFICER was stopped and HCT performed with no acute pathology. Transfered to telemetry floor for additional monitoring - Current Medication List Current Medications: Active Medications Acetaminophen (Ofirmev Injection -) 1,000 mg IVPB Q6H PRN PRN Reason: PAIN 1-3 Last Admin: 02/25/19 05:17 Dose: 1,000 mg Amino Acids (Prosource No Carb Liquid Pkt) 30 ml PO BID@0800,1730 RAHUL Last Admin: 02/24/19 17:18 Dose: 30 ml Metronidazole (Flagyl 500mg Premixed Ivpb -) 500 mg in 100 mls @ 100 mls/hr IVPB Q8H-IV RAHUL Last Admin: 02/25/19 01:01 Dose: 100 mls/hr Piperacillin Sod/Tazobactam (Sod 3.375 gm/ Dextrose) 50 mls @ 100 mls/hr IVPB Q8H-IV RAHUL; Protocol Last Admin: 02/25/19 01:00 Dose: 100 mls/hr Amino Acids (Clinimix -) 1,000 mls @ 84 mls/hr IV Q12H RAHUL Last Admin: 02/25/19 01:00 Dose: 84 mls/hr Lorazepam (Ativan Injection -) 0.5 mg IVPUSH Q6H PRN PRN Reason: ANXIETY Potassium Chloride (Potassium Chloride Oral Liquid) 40 meq PO ONCE ONE Stop: 02/25/19 07:43 - Objective Vital Signs: Vital Signs Temperature 98.2 F 02/25/19 06:00 Pulse Rate 70 02/25/19 06:00 Respiratory Rate 20 02/25/19 06:00 Blood Pressure 134/90 02/25/19 06:00 O2 Sat by Pulse Oximetry (%) 99 02/24/19 21:00 Constitutional: Yes: Well Nourished, No Distress, Calm Eyes: Yes: WNL, Conjunctiva Clear, EOM Intact HENT: Yes: WNL, Atraumatic, Normocephalic Neck: Yes: WNL, Supple, Trachea Midline Cardiovascular: Yes: WNL, Regular Rate and Rhythm Respiratory: Yes: WNL, Regular, CTA Bilaterally Gastrointestinal: Yes: WNL, Hypoactive Bowel Sounds, Other (Ostomy stome pink and moist. Liquidstool in colostomy bag) Genitourinary: Yes: WNL Musculoskeletal: Yes: WNL Extremities: Yes: WNL Edema: No Peripheral Pulses WNL: Yes Wound/Incision: Yes: Clean/Dry, [place] Intact Neurological: Yes: WNL, Alert, Oriented ...Motor Strength: WNL Psychiatric: Yes: WNL, Alert, Oriented Labs: CBC, BMP 02/25/19 05:20 02/25/19 05:20 INR, PTT INR 1.29 (0.83-1.09) H 02/24/19 00:01 Problem List - Problems (1) Acute diverticulitis Assessment/Plan: -s/p open colectomy with Hartmans precedure POD #5 Continue Zosyn and IV metronidazole, start to de-escelate abx tomorrow tolertaing clear liquids. Will start to advance to regular diet will stop CLinimax after current bag completes Code(s): K57.92 - DVTRCLI OF INTEST, PART UNSP, W/O PERF OR ABSCESS W/O BLEED (2) Nausea vomiting and diarrhea Assessment/Plan: resolved Code(s): R11.2 - NAUSEA WITH VOMITING, UNSPECIFIED; R19.7 - DIARRHEA, UNSPECIFIED (3) Idiopathic angioedema Assessment/Plan: -stable -followed by an mailroom supervisor; for flares at home takes PO levocetirizine and PO prednisone Code(s): T78.3XXA - ANGIONEUROTIC EDEMA, INITIAL ENCOUNTER (4) Anxiety Assessment/Plan: Less anxious today. can restart home doses of prozac today. Patient expressed desire to stop antidepressants and anti-anxiety med all together-especially the trazadone and klonopin. Advised patient that it can be dangerous to abruptly stop SSRI and we will taper dose gradually will try to avoid PRN doses of Klonipin offered emotional support to patient and family Code(s): F41.9 - ANXIETY DISORDER, UNSPECIFIED (5) Prophylactic measure Assessment/Plan: FEN regualr diet monitor electolytes DVT lovenox sq PT requested Dispo Maintain as in patient full code discharge planning Code(s): Z29.9 - ENCOUNTER FOR PROPHYLACTIC MEASURES, UNSPECIFIED (6) Colostomy care Assessment/Plan: stoma moist and pick monitor output colostomy care as per nursing will arrange for VNS for colostmy care assistance (7) Vasovagal episode Assessment/Plan: no furhetr epsidoe since STAFF [employer] T[employer] OFFICER dc'd Neurology consultation greatly appreciate TTE done an unremarkable with EF 70%, no MR trace TR. Carotid dopplers with no stenosis BL. Ruled out cardiac (neg TTE), neurological (HCT negative) and absensce of carotid stenosis as source of vasovagal/syncopal episodes. continue on telemetry with close monitoring Code(s): R55 - SYNCOPE AND COLLAPSE Visit type - Emergency Visit Emergency Visit: Yes ED Registration Date: 02/19/19 Care time: The patient presented to the Emergency Department on the above date and was hospitalized for further evaluation of their emergent condition. - New Patient This patient is new to me today: No - Critical Care Critical Care patient: No - Discharge Referral Referred to [facility] Med P.C.: No
[2019-02-25] MEDS: AMINO ACIDS/PROTEIN HYDROLYS 30 ML LIQUID.PKT PO SCH ×2 (08:12→17:18)
--- NOTE | 2019-02-25 08:25 | PN ---
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 Presented to the ED at [facility] initially for evaluation of LLQ pain that began acutely at 4am morning of admission. Patient was hospitalized at [place] from 11/11-11/18/18 with diverticulitis with a small abscess. He was treated with IV antibiotics. The abscess was considered too small to drain. Since then, the patient has been in good health, adhering to a strict diet. He had a followup colonoscopy which was unremarkable. New pain came on suddenly and severely. CTAP with contrast showed (1) interval development of a small pneumoperitoneum with air seen within the upper abdomen bilaterally; (2) development of two contiguous abscesses (2.3cm, 1.9cm) within the left paracolic space; and (3) pericolonic edema at the level of the upper third of the sigmoid colon c/w acute diverticulitis. Patient denies fever, sweats, chills. Patient sent to [place] for further management and per discussion with hospitalist he had colostomy procedure. However, has had multiple rapid response events with AMS and lethargy. Spoke with patient and , Raiza, at bedside, and the report improvement overnight with no significant events occurring. CT head has been completed and no acute changes. Discussed with hospitalist to check carotid doppler to confirm no HD significant stenosis , did not see report in chart. However, event possibly due to medication (was given Dilaudid due to pain), pain has improved and now only on Tylenol. Would recommend continuing avoidance of sedating medication. Allergies No Known Allergies Allergy (Verified 02/19/19 11:57) Active Medications Acetaminophen (Ofirmev Injection -) 1,000 mg IVPB Q6H PRN PRN Reason: PAIN 1-3 Last Admin: 02/25/19 05:17 Dose: 1,000 mg Amino Acids (Prosource No Carb Liquid Pkt) 30 ml PO BID@0800,1730 RAHUL Last Admin: 02/25/19 08:12 Dose: 30 ml Metronidazole (Flagyl 500mg Premixed Ivpb -) 500 mg in 100 mls @ 100 mls/hr IVPB Q8H-IV RAHUL Last Admin: 02/25/19 01:01 Dose: 100 mls/hr Piperacillin Sod/Tazobactam (Sod 3.375 gm/ Dextrose) 50 mls @ 100 mls/hr IVPB Q8H-IV RAHUL; Protocol Last Admin: 02/25/19 01:00 Dose: 100 mls/hr Amino Acids (Clinimix -) 1,000 mls @ 84 mls/hr IV Q12H RAHUL Last Admin: 02/25/19 01:00 Dose: 84 mls/hr Lorazepam (Ativan Injection -) 0.5 mg IVPUSH Q6H PRN PRN Reason: ANXIETY PHYSICAL EXAMINATION Vital Signs Period Temp Pulse Resp BP Sys/Domingo Pulse Ox Last 24 Hr 97.3 F-98.5 F 70-84 16-20 117-144/67-92 98-99 GENERAL: Awake, alert, and fully oriented, in moderate distress secondary to pain. Pale, ill-appearing. HEAD: Normal with no signs of trauma. LUNGS: Breath sounds equal, clear to auscultation bilaterally. No wheezes, and no crackles. No accessory muscle use. HEART: Regular rate and rhythm, normal S1 and S2 ABDOMEN: LLQ tenderness, +guarding +rebound tenderness MUSCULOSKELETAL: Normal range of motion at all joints. No bony deformities or tenderness. No CVA tenderness. UPPER EXTREMITIES: 2+ pulses, warm, well-perfused. No cyanosis. No clubbing. No peripheral edema. LOWER EXTREMITIES: 2+ pulses, warm, well-perfused. No calf tenderness. No peripheral edema. NEUROLOGICAL: Cranial nerves II-XII intact. Normal speech. CBCD WBC 6.7 K/mm3 (4.0-10.0) 02/25/19 05:20 RBC 5.10 M/mm3 (4.00-5.60) 02/25/19 05:20 Hgb 14.5 GM/dL (11.7-16.9) 02/25/19 05:20 Hct 43.0 % (35.4-49) 02/25/19 05:20 MCV 84.3 fl (80-96) 02/25/19 05:20 MCHC 33.8 g/dl (32.0-35.9) 02/25/19 05:20 RDW 12.9 % (11.9-15.9) 02/25/19 05:20 Plt Count 207 K/MM3 (134-434) 02/25/19 05:20 MPV 7.9 fl (7.5-11.1) 02/25/19 05:20 CMP Sodium 137 mmol/L (136-145) 02/25/19 05:20 Potassium 3.4 mmol/L (3.5-5.1) L 02/25/19 05:20 Chloride 104 mmol/L (98-107) 02/25/19 05:20 Carbon Dioxide 26 mmol/L (21-32) 02/25/19 05:20 Anion Gap 7 MMOL/L (8-16) L 02/25/19 05:20 BUN 13.6 mg/dL (7-18) 02/25/19 05:20 Creatinine 0.6 mg/dL (0.55-1.3) 02/25/19 05:20 Random Glucose 118 mg/dL (74-106) H 02/25/19 05:20 Calcium 8.6 mg/dL (8.5-10.1) 02/25/19 05:20 Total Bilirubin 0.5 mg/dL (0.2-1) 02/25/19 05:20 AST 8 U/L (15-37) L 02/25/19 05:20 ALT 13 U/L (13-61) 02/25/19 05:20 Alkaline Phosphatase 60 U/L (45-117) 02/25/19 05:20 Total Protein 6.2 g/dl (6.4-8.2) L 02/25/19 05:20 Albumin 2.9 g/dl (3.4-5.0) L 02/25/19 05:20 CARDIAC ENZYMES Creatine Kinase 114 U/L (26-308) 02/22/19 14:35 Troponin I < 0.02 ng/ml (0.00-0.05) 02/24/19 00:01 ASSESSMENT/PLAN 48 year-old male with a PMH significant for diverticulitis, 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 Presented to the ED at [facility] initially for evaluation of LLQ pain that began acutely at 4am morning of admission. Patient was hospitalized at [place] from 11/11-11/18/18 with diverticulitis with a small abscess. He was treated with IV antibiotics. The abscess was considered too small to drain. Since then, the patient has been in good health, adhering to a strict diet. He had a followup colonoscopy which was unremarkable. New pain came on suddenly and severely. CTAP with contrast showed (1) interval development of a small pneumoperitoneum with air seen within the upper abdomen bilaterally; (2) development of two contiguous abscesses (2.3cm, 1.9cm) within the left paracolic space; and (3) pericolonic edema at the level of the upper third of the sigmoid colon c/w acute diverticulitis. Patient denies fever, sweats, chills. Patient sent to [place] for further management and per discussion with hospitalist he had colostomy procedure. However, has had multiple rapid response events with AMS and lethargy. Spoke with patient and , Raiza, at bedside, and the report improvement overnight with no significant events occurring. CT head has been completed and no acute changes. Discussed with hospitalist to check carotid doppler to confirm no HD significant stenosis , did not see report in chart. However, event possibly due to medication (was given Dilaudid due to pain), pain has improved and now only on Tylenol. Would recommend continuing avoidance of sedating medication.Continue hydration. Per family, surgeon at follow-up visit yesterday and reportedly questions answered. Patient appears less anxious and more at ease today, optimize as this may also further patient's symptomatology if not adequately controlled. Minimize sedatives as best able.
--- NOTE | 2019-02-25 09:17 | PN ---
Progress Note, Physician History of Present Illness: stable doing well colostomy functioning - Current Medication List Current Medications: Active Medications Acetaminophen (Ofirmev Injection -) 1,000 mg IVPB Q6H PRN PRN Reason: PAIN 1-3 Last Admin: 02/25/19 05:17 Dose: 1,000 mg Amino Acids (Prosource No Carb Liquid Pkt) 30 ml PO BID@0800,1730 RAHUL Last Admin: 02/25/19 08:12 Dose: 30 ml Metronidazole (Flagyl 500mg Premixed Ivpb -) 500 mg in 100 mls @ 100 mls/hr IVPB Q8H-IV RAHUL Last Admin: 02/25/19 01:01 Dose: 100 mls/hr Piperacillin Sod/Tazobactam (Sod 3.375 gm/ Dextrose) 50 mls @ 100 mls/hr IVPB Q8H-IV RAHUL; Protocol Last Admin: 02/25/19 01:00 Dose: 100 mls/hr Amino Acids (Clinimix -) 1,000 mls @ 84 mls/hr IV Q12H RAHUL Last Admin: 02/25/19 01:00 Dose: 84 mls/hr Lorazepam (Ativan Injection -) 0.5 mg IVPUSH Q6H PRN PRN Reason: ANXIETY - Objective Vital Signs: Vital Signs Temperature 97.9 F 02/25/19 08:00 Pulse Rate 72 02/25/19 08:00 Respiratory Rate 18 02/25/19 08:00 Blood Pressure 126/84 02/25/19 08:00 O2 Sat by Pulse Oximetry (%) 99 02/24/19 21:00 Constitutional: Yes: No Distress, Calm Cardiovascular: Yes: Regular Rate and Rhythm Respiratory: Yes: Regular, CTA Bilaterally Gastrointestinal: Yes: Normal Bowel Sounds, Soft, Other (colostomy fning) Musculoskeletal: Yes: WNL Extremities: Yes: WNL Neurological: Yes: Alert, Oriented Psychiatric: Yes: Alert, Oriented Labs: CBC, BMP 02/25/19 05:20 02/25/19 05:20 INR, PTT INR 1.29 (0.83-1.09) H 02/24/19 00:01 Assessment/Plan Assessment/Plan Problem List - Problems (1) Diverticulitis of intestine with abscess Assessment/Plan: Code(s): K57.80 - DVTRCLI OF INTEST, PART UNSP, W PERF AND ABSCESS W/O BLEED Qualifiers: Diverticulitis site: large intestine Diverticulitis bleeding: without bleeding Qualified Code(s): K57.20 - Diverticulitis of large intestine with perforation and abscess without bleeding (2) LLQ abdominal pain Code(s): R10.32 - LEFT LOWER QUADRANT PAIN (3) Nausea vomiting and diarrhea Code(s): R11.2 - NAUSEA WITH VOMITING, UNSPECIFIED; R19.7 - DIARRHEA, UNSPECIFIED (4) Panic anxiety syndrome Code(s): F41.0 - PANIC DISORDER [EPISODIC PAROXYSMAL ANXIETY] plan continue current mgmt will deescalate the abx tomorrow nutrition physio rest as per the team
--- NOTE | 2019-02-25 10:45 | PN ---
Progress Note (short form) - Note Progress Note: Patient stable and has little pain.BASE FILLER was DC yesterday.No any anesthesia related problem.Patient DC from the anesthesia care.
[2019-02-25] MEDS: FLUoxetine HCL 20 MG CAPSULE (FP) PO SCH (12:22)
[2019-02-25] MEDS: traZODone HCL 50 MG TABLET (FP) PO SCH (22:03)
[2019-02-26] MEDS ORDERED: PIPERACILLIN/TAZOBACTAM 3.375 GM VIAL IVPB ONE ×2 (01:29→09:34)
[2019-02-26] MEDS ORDERED: DEXTROSE 5%-WATER - 50 ML IVPB ONE ×2 (01:30→09:34)
[2019-02-26] MEDS: PIPERACILLIN/TAZOB 3.375 GM 3.375 GM in DEXTROSE 5%-WATER - 50 ML IVPB SCH ×2 (02:41→09:38)
[2019-02-26 07:22] LABS: BASO % 0.5 % (0-2.0); EOS % 9.3 % (0-4.5); HEMATOCRIT 42.8 % (35.4-49); HEMOGLOBIN 14.7 GM/dL (11.7-16.9); MCH 29.1 pg (25.7-33.7); MCHC 34.4 g/dl (32.0-35.9); MEAN CELL VOLUME 84.5 fl (80-96); MEAN PLT VOLUME 7.8 fl (7.5-11.1); MONO % 10.2 % (3.8-10.2); RBC 5.07 M/mm3 (4.00-5.60); RDW 12.7 % (11.9-15.9); WHITE BLOOD COUNT 6.9 K/mm3 (4.0-10.0)
[2019-02-26 07:39] LABS: BILIRUBIN,TOTAL 0.6 mg/dL (0.2-1); BLOOD UREA NITROGEN 11.7 mg/dL (7-18); CALCIUM 8.6 mg/dL (8.5-10.1); CREATININE 0.7 mg/dL (0.55-1.3); POTASSIUM 3.8 mmol/L (3.5-5.1); TOT PROT 6.4 g/dl (6.4-8.2)
[2019-02-26 08:11] LABS: PLATELET COUNT 216 K/MM3 (134-434)
[2019-02-26] MEDS: AMINO ACIDS/PROTEIN HYDROLYS 30 ML LIQUID.PKT PO SCH ×2 (08:45→17:10)
--- NOTE | 2019-02-26 09:14 | PN ---
Progress Note, Physician Chief Complaint: no events overnight. States he feels much better today. 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 Presented to the ED earlier today for evaluation of LLQ pain that began acutely at 4am this morning. Patient was hospitalized at [place] from 11/11-11/18/18 with diverticulitis with a small abscess. He was treated with IV antibiotics. The abscess was considered too small to drain. Since then, the patient has been in good health, adhering to a strict diet. He had a followup colonoscopy which was unremarkable. Pain came on suddenly and severely. CTAP with contrast shows (1) interval development of a small pneumoperitoneum with air seen within the upper abdomen bilaterally; (2) development of two contiguous abscesses (2.3cm, 1.9cm) within the left paracolic space; and (3) pericolonic edema at the level of the upper third of the sigmoid colon c/w acute diverticulitis. Patient denies fever, sweats, chills. POD#6 from ex lap with Hatmans procedure - Current Medication List Current Medications: Active Medications Acetaminophen (Ofirmev Injection -) 1,000 mg IVPB Q6H PRN PRN Reason: PAIN 1-3 Last Admin: 02/25/19 05:17 Dose: 1,000 mg Amino Acids (Prosource No Carb Liquid Pkt) 30 ml PO BID@0800,1730 ON LICENSE OF [facility] Last Admin: 02/26/19 08:45 Dose: 30 ml Fluoxetine HCl (Prozac -) 20 mg PO DAILY ON LICENSE OF [facility] Last Admin: 02/25/19 12:22 Dose: 20 mg Metronidazole (Flagyl 500mg Premixed Ivpb -) 500 mg in 100 mls @ 100 mls/hr IVPB Q8H-IV ON LICENSE OF [facility] Last Admin: 02/26/19 01:33 Dose: 100 mls/hr Piperacillin Sod/Tazobactam (Sod 3.375 gm/ Dextrose) 50 mls @ 100 mls/hr IVPB Q8H-IV ON LICENSE OF [facility]; Protocol Last Admin: 02/26/19 02:41 Dose: 100 mls/hr Trazodone HCl (Desyrel -) 25 mg PO HS ON LICENSE OF [facility] Last Admin: 02/25/19 22:03 Dose: Not Given - Objective Vital Signs: Vital Signs Temperature 97.6 F 02/26/19 06:00 Pulse Rate 87 02/26/19 06:00 Respiratory Rate 18 02/26/19 06:00 Blood Pressure 157/91 02/26/19 06:00 O2 Sat by Pulse Oximetry (%) 93 L 02/25/19 21:00 Constitutional: Yes: Well Nourished, No Distress, Calm Eyes: Yes: WNL, Conjunctiva Clear, EOM Intact HENT: Yes: WNL, Atraumatic, Normocephalic Neck: Yes: WNL, Supple, Trachea Midline Cardiovascular: Yes: WNL, Regular Rate and Rhythm Respiratory: Yes: WNL, Regular, CTA Bilaterally Gastrointestinal: Yes: WNL, Normal Bowel Sounds, Soft, Other (colostomy stome moist and pink with liquid stool) Genitourinary: Yes: WNL Musculoskeletal: Yes: WNL Extremities: Yes: WNL Edema: No Peripheral Pulses WNL: Yes Integumentary: Yes: WNL Wound/Incision: Yes: Clean/Dry, [place] Intact Neurological: Yes: WNL, Alert, Oriented ...Motor Strength: WNL Psychiatric: Yes: WNL, Alert, Oriented Labs: CBC, BMP 02/26/19 06:27 02/26/19 06:27 INR, PTT INR 1.29 (0.83-1.09) H 02/24/19 00:01 Problem List - Problems (1) Acute diverticulitis Assessment/Plan: -s/p open colectomy with Hartmans precedure POD #6 abx stopped today, will continue to monitor offtolerating regular diet continue pro-source Code(s): K57.92 - DVTRCLI OF INTEST, PART UNSP, W/O PERF OR ABSCESS W/O BLEED (2) Nausea vomiting and diarrhea Assessment/Plan: resolved Code(s): R11.2 - NAUSEA WITH VOMITING, UNSPECIFIED; R19.7 - DIARRHEA, UNSPECIFIED (3) Idiopathic angioedema Assessment/Plan: -stable -followed by an nanotechnology engineering technician; for flares at home takes PO levocetirizine and PO prednisone Code(s): T78.3XXA - ANGIONEUROTIC EDEMA, INITIAL ENCOUNTER Qualifiers: Encounter type: sequela Qualified Code(s): T78.3XXS - Angioneurotic edema, sequela (4) Anxiety Assessment/Plan: Less anxious today. prozac retarted yesterday Patient expressed desire to stop antidepressants and anti-anxiety med all together-especially the trazadone and klonopin. Advised patient that it can be dangerous to abruptly stop SSRI and we will taper dose gradually will try to avoid PRN doses of Klonipin offered emotional support to patient and family Code(s): F41.9 - ANXIETY DISORDER, UNSPECIFIED (5) Prophylactic measure Assessment/Plan: FEN regualr diet monitor electolytes DVT lovenox sq PT requested Dispo Maintain as in patient full code discharge planning Code(s): Z29.9 - ENCOUNTER FOR PROPHYLACTIC MEASURES, UNSPECIFIED (6) Colostomy care Assessment/Plan: stoma moist and pick monitor output colostomy care as per nursing will arrange for VNS for colostmy care assistance (7) Vasovagal episode Assessment/Plan: no further epsidoe since VAMPER dc'd Neurology consultation greatly appreciate TTE done an unremarkable with EF 70%, no MR trace TR. Carotid dopplers with no stenosis BL. Ruled out cardiac (neg TTE), neurological (HCT negative) and absensce of carotid stenosis as source of vasovagal/syncopal episodes. continue on telemetry with close monitoring until discharge Code(s): R55 - SYNCOPE AND COLLAPSE Visit type - Emergency Visit Emergency Visit: Yes ED Registration Date: 02/19/19 Care time: The patient presented to the Emergency Department on the above date and was hospitalized for further evaluation of their emergent condition. - New Patient This patient is new to me today: No - Critical Care Critical Care patient: No - Discharge Referral Referred to [facility] Med [facility].: No
[2019-02-26] MEDS: FLUoxetine HCL 20 MG CAPSULE (FP) PO SCH (09:39)
--- NOTE | 2019-02-26 12:01 | PN ---
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 Presented to the ED earlier today for evaluation of LLQ pain that began acutely at 4am this morning. Patient was hospitalized at [place] from 11/11-11/18/18 with diverticulitis with a small abscess. he has been stable postoperatively. Has a fucntioning colostomy but a low grade temp last night. - Current Medication List Current Medications: Active Medications Acetaminophen (Ofirmev Injection -) 1,000 mg IVPB Q6H PRN PRN Reason: PAIN 1-3 Last Admin: 02/25/19 05:17 Dose: 1,000 mg Amino Acids (Prosource No Carb Liquid Pkt) 30 ml PO BID@0800,1730 [facility] Last Admin: 02/26/19 08:45 Dose: 30 ml Fluoxetine HCl (Prozac -) 20 mg PO DAILY [facility] Last Admin: 02/26/19 09:39 Dose: 20 mg Metronidazole (Flagyl 500mg Premixed Ivpb -) 500 mg in 100 mls @ 100 mls/hr IVPB Q8H-IV [facility] Last Admin: 02/26/19 09:39 Dose: 100 mls/hr Piperacillin Sod/Tazobactam (Sod 3.375 gm/ Dextrose) 50 mls @ 100 mls/hr IVPB Q8H-IV [facility]; Protocol Last Admin: 02/26/19 09:38 Dose: 100 mls/hr Trazodone HCl (Desyrel -) 25 mg PO HS [facility] Last Admin: 02/25/19 22:03 Dose: Not Given - Objective Vital Signs: Vital Signs Temperature 98.5 F 02/26/19 09:44 Pulse Rate 74 02/26/19 09:44 Respiratory Rate 18 02/26/19 09:44 Blood Pressure 135/99 02/26/19 09:44 O2 Sat by Pulse Oximetry (%) 93 L 02/25/19 21:00 Vital Signs Period Temp Pulse Resp BP Sys/[place]ingo Pulse Ox Last 24 Hr 97.6 F-99.2 F 73-90 16-20 135-157/79-99 93 Intake & Output 02/25/19 02/26/19 02/26/19 23:59 07:59 15:59 Intake Total 300 150 370 Output Total 500 400 600 Balance -200 -250 -230 Intake: IVPB 150 Oral 300 370 Output: Urine 400 400 600 Void 400 400 600 Colostomy 100 Other: Voiding Method Toilet Toilet Urinal # Unmeasured Voids Void 1 2 Bowel Movement No No Constitutional: Yes: Well Nourished, No Distress, Calm Eyes: Yes: Conjunctiva Clear, EOM Intact HENT: Yes: Atraumatic, Normocephalic Neck: Yes: Supple, Trachea Midline Cardiovascular: Yes: Regular Rate and Rhythm, S1, S2 Respiratory: Yes: Regular, CTA Bilaterally Gastrointestinal: Yes: Normal Bowel Sounds, Soft, Tenderness (mild incsional). No: Distention ...Rectal Exam: Yes: Deferred Genitourinary: No: CVA Tenderness - Left, CVA Tenderness - Right Breast(s): No: Mass, Skin Changes Musculoskeletal: No: Muscle Pain, Muscle Weakness Extremities: No: Cool, Cyanosis Edema: No Peripheral Pulses WNL: Yes Peripheral Pulses: Left Radial: 2+, Right Radial: 2+, Left Doralis Pedis: 2+, Right Dorsalis Pedis: 2+, Left Femoral: 2+, Right Femoral: 2+ Integumentary: No: Jaundice, Rash Wound/Incision: Yes: Clean/Dry, Well Approximated, [place] Intact, Open to air, Other (LLQ functional colostomy) Neurological: Yes: Alert, Oriented Psychiatric: Yes: Alert, Oriented Labs: CBC, BMP 02/26/19 06:27 02/26/19 06:27 INR, PTT INR 1.29 (0.83-1.09) H 02/24/19 00:01 Problem List - Problems (1) Perforated diverticulum of large intestine Assessment/Plan: 48yo Acute perforated Diverticulitis with localized peritonitis, POD#7 s/p Eliud's Procedure, colostomy now appears functional. management per primary team regular diet prostat replete electrolytes OOB and ambulate consider change to oral antibiotics colostomy teaching by nurse Discharge planning will follow Code(s): K57.20 - DVTRCLI OF LG INT W PERFORATION AND ABSCESS W/O BLEEDING (2) LLQ abdominal pain Code(s): R10.32 - LEFT LOWER QUADRANT PAIN (3) Anxiety Code(s): F41.9 - ANXIETY DISORDER, UNSPECIFIED (4) Idiopathic angioedema Code(s): T78.3XXA - ANGIONEUROTIC EDEMA, INITIAL ENCOUNTER Qualifiers: Encounter type: sequela Qualified Code(s): T78.3XXS - Angioneurotic edema, sequela (5) Panic anxiety syndrome Code(s): F41.0 - PANIC DISORDER [EPISODIC PAROXYSMAL ANXIETY]
--- NOTE | 2019-02-26 12:58 | PN ---
Progress Note, Physician History of Present Illness: stable no new issues tolerating diet - Current Medication List Current Medications: Active Medications Acetaminophen (Ofirmev Injection -) 1,000 mg IVPB Q6H PRN PRN Reason: PAIN 1-3 Last Admin: 02/25/19 05:17 Dose: 1,000 mg Amino Acids (Prosource No Carb Liquid Pkt) 30 ml PO BID@0800,1730 [facility] Last Admin: 02/26/19 08:45 Dose: 30 ml Fluoxetine HCl (Prozac -) 20 mg PO DAILY [facility] Last Admin: 02/26/19 09:39 Dose: 20 mg Metronidazole (Flagyl 500mg Premixed Ivpb -) 500 mg in 100 mls @ 100 mls/hr IVPB Q8H-IV [facility] Last Admin: 02/26/19 09:39 Dose: 100 mls/hr Piperacillin Sod/Tazobactam (Sod 3.375 gm/ Dextrose) 50 mls @ 100 mls/hr IVPB Q8H-IV [facility]; Protocol Last Admin: 02/26/19 09:38 Dose: 100 mls/hr Trazodone HCl (Desyrel -) 25 mg PO HS [facility] Last Admin: 02/25/19 22:03 Dose: Not Given - Objective Vital Signs: Vital Signs Temperature 98.5 F 02/26/19 09:44 Pulse Rate 74 02/26/19 09:44 Respiratory Rate 18 02/26/19 09:44 Blood Pressure 135/99 02/26/19 09:44 O2 Sat by Pulse Oximetry (%) 93 L 02/25/19 21:00 Constitutional: Yes: No Distress, Calm Cardiovascular: Yes: Regular Rate and Rhythm Respiratory: Yes: Regular, CTA Bilaterally Gastrointestinal: Yes: Normal Bowel Sounds, Soft, Other (colostommy in place) Musculoskeletal: Yes: WNL Extremities: Yes: WNL Neurological: Yes: Alert, Oriented Psychiatric: Yes: Alert, Oriented Labs: CBC, BMP 02/26/19 06:27 02/26/19 06:27 INR, PTT INR 1.29 (0.83-1.09) H 02/24/19 00:01 Assessment/Plan Assessment/Plan Problem List - Problems (1) Diverticulitis of intestine with abscess Assessment/Plan: Code(s): K57.80 - DVTRCLI OF INTEST, PART UNSP, W PERF AND ABSCESS W/O BLEED Qualifiers: Diverticulitis site: large intestine Diverticulitis bleeding: without bleeding Qualified Code(s): K57.20 - Diverticulitis of large intestine with perforation and abscess without bleeding (2) LLQ abdominal pain Code(s): R10.32 - LEFT LOWER QUADRANT PAIN (3) Nausea vomiting and diarrhea Code(s): R11.2 - NAUSEA WITH VOMITING, UNSPECIFIED; R19.7 - DIARRHEA, UNSPECIFIED (4) Panic anxiety syndrome Code(s): F41.0 - PANIC DISORDER [EPISODIC PAROXYSMAL ANXIETY] plan will stop abx will monitor off of abx
[2019-02-26] MEDS: traZODone HCL 50 MG TABLET (FP) PO SCH (21:50)
[2019-02-26] MEDS: NYSTATIN 100,000 UNIT/GM TOPICAL CREAM 15 GM TUBE TP SCH (23:48)
--- NOTE | 2019-02-27 08:57 | PN ---
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 Presented to the ED at [facility] initially for evaluation of LLQ pain that began acutely at 4am morning of admission. Patient was hospitalized at [place] from 11/11-11/18/18 with diverticulitis with a small abscess. He was treated with IV antibiotics. The abscess was considered too small to drain. Since then, the patient has been in good health, adhering to a strict diet. He had a followup colonoscopy which was unremarkable. New pain came on suddenly and severely. CTAP with contrast showed (1) interval development of a small pneumoperitoneum with air seen within the upper abdomen bilaterally; (2) development of two contiguous abscesses (2.3cm, 1.9cm) within the left paracolic space; and (3) pericolonic edema at the level of the upper third of the sigmoid colon c/w acute diverticulitis. Patient denies fever, sweats, chills. Patient sent to [facility] for further management and per discussion with hospitalist he had colostomy procedure. However, has had multiple rapid response events with AMS and lethargy. Spoke with patient and , Raiza, at bedside, and the report improvement overnight with no significant events occurring. CT head has been completed and no acute changes. Carotid doppler without hemodynamically significant stenosis. However, event possibly due to medication (was given Dilaudid due to pain), pain has improved and now only on Tylenol. Would recommend continuing avoidance of sedating medication. Fluoxetine restarted at 20mg dose, no objection. On trazadone for sleep, advised patient to avoid and disucssed use of Melatonin instead which can help with sleep and less cognitive impairment and medication interaction. he was in in agreement along with at bedside. Per notes, awaiting for VNS services. Allergies No Known Allergies Allergy (Verified 02/19/19 11:57) Active Medications Acetaminophen (Ofirmev Injection -) 1,000 mg IVPB Q6H PRN PRN Reason: PAIN 1-3 Last Admin: 02/25/19 05:17 Dose: 1,000 mg Amino Acids (Prosource No Carb Liquid Pkt) 30 ml PO BID@0800,1730 [facility] Last Admin: 02/26/19 17:10 Dose: 30 ml Fluoxetine HCl (Prozac -) 20 mg PO DAILY [facility] Last Admin: 02/26/19 09:39 Dose: 20 mg Nystatin (Mycostatin Cream -) 1 applic TP BID [facility] Last Admin: 02/26/19 23:48 Dose: 1 applic Trazodone HCl (Desyrel -) 25 mg PO HS [facility] Last Admin: 02/26/19 21:50 Dose: 25 mg PHYSICAL EXAMINATION CBCD WBC 6.9 K/mm3 (4.0-10.0) 02/26/19 06:27 RBC 5.07 M/mm3 (4.00-5.60) 02/26/19 06:27 Hgb 14.7 GM/dL (11.7-16.9) 02/26/19 06:27 Hct 42.8 % (35.4-49) 02/26/19 06:27 MCV 84.5 fl (80-96) 02/26/19 06:27 MCHC 34.4 g/dl (32.0-35.9) 02/26/19 06:27 RDW 12.7 % (11.9-15.9) 02/26/19 06:27 Plt Count 216 K/MM3 (134-434) 02/26/19 06:27 MPV 7.8 fl (7.5-11.1) 02/26/19 06:27 CMP Sodium 139 mmol/L (136-145) 02/26/19 06:27 Potassium 3.8 mmol/L (3.5-5.1) 02/26/19 06:27 Chloride 105 mmol/L (98-107) 02/26/19 06:27 Carbon Dioxide 25 mmol/L (21-32) 02/26/19 06:27 Anion Gap 9 MMOL/L (8-16) 02/26/19 06:27 BUN 11.7 mg/dL (7-18) 02/26/19 06:27 Creatinine 0.7 mg/dL (0.55-1.3) 02/26/19 06:27 Random Glucose 100 mg/dL (74-106) 02/26/19 06:27 Calcium 8.6 mg/dL (8.5-10.1) 02/26/19 06:27 Total Bilirubin 0.6 mg/dL (0.2-1) 02/26/19 06:27 AST 10 U/L (15-37) L 02/26/19 06:27 ALT 14 U/L (13-61) 02/26/19 06:27 Alkaline Phosphatase 64 U/L (45-117) 02/26/19 06:27 Total Protein 6.4 g/dl (6.4-8.2) 02/26/19 06:27 Albumin 3.0 g/dl (3.4-5.0) L 02/26/19 06:27 CARDIAC ENZYMES Creatine Kinase 114 U/L (26-308) 02/22/19 14:35 Troponin I < 0.02 ng/ml (0.00-0.05) 02/24/19 00:01 GENERAL: Awake, alert, and fully oriented, no distress HEAD: Normal with no signs of trauma. LUNGS: Breath sounds equal, clear to auscultation bilaterally. No wheezes, and no crackles. No accessory muscle use. HEART: Regular rate and rhythm, normal S1 and S2 ABDOMEN: LLQ tenderness, +guarding +rebound tenderness MUSCULOSKELETAL: Normal range of motion at all joints. No bony deformities or tenderness. No CVA tenderness. UPPER EXTREMITIES: 2+ pulses, warm, well-perfused. No cyanosis. No clubbing. No peripheral edema. LOWER EXTREMITIES: 2+ pulses, warm, well-perfused. No calf tenderness. No peripheral edema. NEUROLOGICAL: Cranial nerves II-XII intact. Normal speech. CBCD WBC 6.9 K/mm3 (4.0-10.0) 02/26/19 06:27 RBC 5.07 M/mm3 (4.00-5.60) 02/26/19 06:27 Hgb 14.7 GM/dL (11.7-16.9) 02/26/19 06:27 Hct 42.8 % (35.4-49) 02/26/19 06:27 MCV 84.5 fl (80-96) 02/26/19 06:27 MCHC 34.4 g/dl (32.0-35.9) 02/26/19 06:27 RDW 12.7 % (11.9-15.9) 02/26/19 06:27 Plt Count 216 K/MM3 (134-434) 02/26/19 06:27 MPV 7.8 fl (7.5-11.1) 02/26/19 06:27 CMP Sodium 139 mmol/L (136-145) 02/26/19 06:27 Potassium 3.8 mmol/L (3.5-5.1) 02/26/19 06:27 Chloride 105 mmol/L (98-107) 02/26/19 06:27 Carbon Dioxide 25 mmol/L (21-32) 02/26/19 06:27 Anion Gap 9 MMOL/L (8-16) 02/26/19 06:27 BUN 11.7 mg/dL (7-18) 02/26/19 06:27 Creatinine 0.7 mg/dL (0.55-1.3) 02/26/19 06:27 Random Glucose 100 mg/dL (74-106) 02/26/19 06:27 Calcium 8.6 mg/dL (8.5-10.1) 02/26/19 06:27 Total Bilirubin 0.6 mg/dL (0.2-1) 02/26/19 06:27 AST 10 U/L (15-37) L 02/26/19 06:27 ALT 14 U/L (13-61) 02/26/19 06:27 Alkaline Phosphatase 64 U/L (45-117) 02/26/19 06:27 Total Protein 6.4 g/dl (6.4-8.2) 02/26/19 06:27 Albumin 3.0 g/dl (3.4-5.0) L 02/26/19 06:27 CARDIAC ENZYMES Creatine Kinase 114 U/L (26-308) 02/22/19 14:35 Troponin I < 0.02 ng/ml (0.00-0.05) 02/24/19 00:01 ASSESSMENT/PLAN 48 year-old male with a PMH significant for diverticulitis, 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 Presented to the ED at [facility] initially for evaluation of LLQ pain that began acutely at 4am morning of admission. Patient was hospitalized at [place] from 11/11-11/18/18 with diverticulitis with a small abscess. He was treated with IV antibiotics. The abscess was considered too small to drain. Since then, the patient has been in good health, adhering to a strict diet. He had a followup colonoscopy which was unremarkable. New pain came on suddenly and severely. CTAP with contrast showed (1) interval development of a small pneumoperitoneum with air seen within the upper abdomen bilaterally; (2) development of two contiguous abscesses (2.3cm, 1.9cm) within the left paracolic space; and (3) pericolonic edema at the level of the upper third of the sigmoid colon c/w acute diverticulitis. Patient denies fever, sweats, chills. Patient sent to [facility] for further management and per discussion with hospitalist he had colostomy procedure. However, has had multiple rapid response events with AMS and lethargy. Spoke with patient and , Raiza, at bedside, and the report improvement overnight with no significant events occurring. CT head has been completed and no acute changes. Carotid doppler without hemodynamically significant stenosis However, event possibly due to medication (was given Dilaudid due to pain), pain has improved and now only on Tylenol. Would recommend continuing avoidance of sedating medication.Continue hydration. Per family, surgeon at follow-up visit yesterday and reportedly questions answered. Patient appears less anxious and more at ease today, optimize as this may also further patient's symptomatology if not adequately controlled. Minimize sedatives as best able.
[2019-02-27] MEDS ORDERED: PT OWN MED DRAWER 7, Y5N ONE (09:21)
[2019-02-27] MEDS: FLUoxetine HCL 20 MG CAPSULE (FP) PO SCH (09:36)
[2019-02-27] MEDS: AMINO ACIDS/PROTEIN HYDROLYS 30 ML LIQUID.PKT PO SCH (09:36)
[2019-02-27] MEDS: NYSTATIN 100,000 UNIT/GM TOPICAL CREAM 15 GM TUBE TP SCH (10:00)
[2019-02-27 10:48] LABS: BASO % 0.5 % (0-2.0); EOS % 7.8 % (0-4.5); HEMOGLOBIN 14.9 GM/dL (11.7-16.9); LYMPH % 16.6 % (8-40); MCH 28.6 pg (25.7-33.7); MCHC 33.8 g/dl (32.0-35.9); MEAN CELL VOLUME 84.5 fl (80-96); MEAN PLT VOLUME 8.1 fl (7.5-11.1); MONO % 8.8 % (3.8-10.2); NEUT % 66.3 % (42.8-82.8); PLATELET COUNT 231 K/MM3 (134-434); RDW 12.7 % (11.9-15.9); WHITE BLOOD COUNT 6.4 K/mm3 (4.0-10.0)
[2019-02-27 10:54] LABS: ALBUMIN 3.1 g/dl (3.4-5.0); BILIRUBIN,TOTAL 0.5 mg/dL (0.2-1); BLOOD UREA NITROGEN 14.1 mg/dL (7-18); CALCIUM 8.9 mg/dL (8.5-10.1); CREATININE 0.8 mg/dL (0.55-1.3); POTASSIUM 3.7 mmol/L (3.5-5.1); TOT PROT 6.7 g/dl (6.4-8.2)
--- NOTE | 2019-02-27 11:58 | DS ---
Physical Examination Vital Signs: Vital Signs Temperature 98.0 F 02/27/19 05:55 Pulse Rate 87 02/27/19 05:55 Respiratory Rate 18 02/27/19 09:00 Blood Pressure 137/75 02/27/19 05:55 O2 Sat by Pulse Oximetry (%) 98 02/27/19 09:00 Constitutional: Yes: Well Nourished, No Distress, Calm Eyes: Yes: WNL, Conjunctiva Clear, EOM Intact HENT: Yes: WNL, Atraumatic, Normocephalic Neck: Yes: WNL, Supple, Trachea Midline Cardiovascular: Yes: WNL, Regular Rate and Rhythm Respiratory: Yes: WNL, Regular, CTA Bilaterally Gastrointestinal: Yes: WNL, Normal Bowel Sounds, Other (colostoy stoma pink and moist with liquid stool in bag) ...Rectal Exam: Yes: Deferred Renal/: Yes: WNL Musculoskeletal: Yes: WNL Extremities: Yes: WNL Edema: No Peripheral Pulses WNL: Yes Integumentary: Yes: Other (skin around stoma with slight excoriation. 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 Presented to the ED earlier today for evaluation of LLQ pain that began acutely at 4am this morning. Patient was hospitalized at [place] from 11/11-11/18/18 with diverticulitis with a small abscess. He was treated with IV antibiotics. The abscess was considered too small to drain. Since then, the patient has been in good health, adhering to a strict diet. He had a followup colonoscopy which was unremarkable. Pain came on suddenly and severely. CTAP with contrast shows (1) interval development of a small pneumoperitoneum with air seen within the upper abdomen bilaterally; (2) development of two contiguous abscesses (2.3cm, 1.9cm) within the left paracolic space; and (3) pericolonic edema at the level of the upper third of the sigmoid colon c/w acute diverticulitis. Patient denies fever, sweats, chills. POD#7 from ex lap with Hatmans procedure Problem List - Problems (1) Acute diverticulitis Assessment/Plan: Presented to ED in [place] with abdominal pain and fever after previous admission for diverticulitis. Antibiotics and planned for surgery with Dr Engilsh -s/p open colectomy with Hartmans precedure POD #7 Antibiotics continued for 5 days and no s/s of infection. (2) Nausea vomiting and diarrhea Assessment/Plan: resolved (3) Idiopathic angioedema Assessment/Plan: -stable -followed by an curator of collections; for flares at home takes PO levocetirizine and PO prednisone (4) Anxiety Assessment/Plan: On prozac Patient expressed desire to stop antidepressants and anti-anxiety med all together-especially the trazadone and klonopin. Advised patient that it can be dangerous to abruptly stop SSRI and we will taper dose gradually will try to avoid PRN doses of Klonipin offered emotional support to patient and family Code(s): F41.9 - ANXIETY DISORDER, UNSPECIFIED Condition: Good - Instructions Diet, Activity, Other Instructions: You have an appointment with Dr English on March 11 at 11am. [facility] [address] [place] [address] [address] [place] [address] The david with be removed by Dr English. You can wash the area with warm soapy water (no perfumed soaps) and pat the area dry. You can take a full shower with the ostomy bag off. The colostomy will be reversed in approximately [address] English The visiting nurse will contact you when you get home to schedule visits in your home. You will have enough supplies for the colostomy to last you until they order more supplies Maintain a low fiber diet. You Trazadone dose was decreased in the hospital to 25mg at bedtime. Speak with your doctor about decreasing the dose further. DO NOT stop on your own-that can lead to withdrawal. Call with any questions and good luck. Referrals: Amos English MD [Staff Physician] - - Home Medications Comprehensive Discharge Medication List: Ambulatory Orders Fluoxetine HCl [Prozac] 20 mg PO DAILY #30 capsule 02/27/19 traZODone HCL [Desyrel -] 25 mg PO HS #30 tablet 02/27/19 This patient is new to me today: No Emergency Visit: Yes ED Registration Date: 02/19/19 Care time: The patient presented to the Emergency Department on the above date and was hospitalized for further evaluation of their emergent condition. Critical Care patient: No - Discharge Referral Referred to [facility] No
--- NOTE | 2019-02-27 12:19 | PN ---
Progress Note, Physician - Current Medication List Current Medications: Active Medications Acetaminophen (Ofirmev Injection -) 1,000 mg IVPB Q6H PRN PRN Reason: PAIN 1-3 Last Admin: 02/25/19 05:17 Dose: 1,000 mg Amino Acids (Prosource No Carb Liquid Pkt) 30 ml PO BID@0800,1730 [facility] Last Admin: 02/27/19 09:36 Dose: 30 ml Fluoxetine HCl (Prozac -) 20 mg PO DAILY [facility] Last Admin: 02/27/19 09:36 Dose: 20 mg Nystatin (Mycostatin Cream -) 1 applic TP BID [facility] Last Admin: 02/27/19 10:00 Dose: Not Given Trazodone HCl (Desyrel -) 25 mg PO HS [facility] Last Admin: 02/26/19 21:50 Dose: 25 mg - Objective Vital Signs: Vital Signs Temperature 98.4 F 02/27/19 10:00 Pulse Rate 93 H 02/27/19 10:00 Respiratory Rate 18 02/27/19 10:00 Blood Pressure 118/79 02/27/19 10:00 O2 Sat by Pulse Oximetry (%) 98 02/27/19 09:00 Labs: CBC, BMP 02/27/19 10:00 02/27/19 10:00 INR, PTT INR 1.29 (0.83-1.09) H 02/24/19 00:01
[2019-02-27 14:23] VITALS: BP 149/84; PULSE 91; TEMP 98.3
--- NOTE | 2019-03-02 11:48 | OP ---
DATE OF OPERATION: 02/20/2019 DATE DICTATED: 02/27/2019 PREOPERATIVE DIAGNOSIS: Perforated sigmoid diverticulitis. POSTOPERATIVE DIAGNOSIS: Perforated sigmoid diverticulitis. PROCEDURE: Exploratory laparotomy and Eliud procedure. ATTENDING SURGEON: Amos English MD BIOLOGICAL INSPECTOR: ROSALVA Interiano ANESTHESIOLOGIST: Benoit Tejada CRNA ANESTHESIA: General with local. SPECIMEN: Potion of sigmoid colon. ESTIMATED BLOOD LOSS: 50 Ml INTRAVENOUS FLUID ADMINISTERED: Crystalloid 1400 mL. DRAINS: Urine in the Elizabeth 250 mL. DRAINS AND TUBE LOCATIONS: NG tube at 60 cm at the nostril and Elizabeth to gravity. BRIEF FINDINGS: Patient had a sigmoid colon that was adherent to the left lateral sidewall and 2 areas of intramural abscess that was palpated in the specimen. The distal stump was marked with 2-0 Prolene in the left lower quadrant and the end colostomy was created in standard fashion in the left lower quadrant. INDICATION: Patient is a 49-year-old male presenting with acute onset abdominal pain over the course of a day and a half. A CT scan confirmed the presence of pneumoperitoneum in the upper abdomen, as well as an area of sigmoid diverticulitis, which was well known that had worsened from October to January. Patient was counseled with these findings that he required emergency surgery intervention. He was counseled regarding risks, benefits and alternatives to surgical, versus non-surgical, management. He signed informed consent. He was taken for the procedure. PROCEDURE: Patient was brought to the operating room. He was placed in the supine position on the operating table. The lower extremities had SCDs placed to compression. Patient was induced with general anesthesia endotracheally intubated. He received intravenous antibiotics prior to the start of the surgery. A formal timeout was completed identifying the operative site with all parties in agreement. We began first with the midline laparotomy incision, incised with the 10 blade scalpel, deepened and went through subcutaneous tissues from the upper mid abdomen down to just above the symphysis pubis. Patient then had the midline fascia entered bluntly and a finger was used to protect the intraabdominal viscera. It was clear at this time that there was a small amount of seropurulent material adjacent to the sigmoid colon after eviscerating the small intestines. The culture was sent from this area. The area was then lysed away from the lateral sidewall with Bovie cautery to allow the sigmoid colon to flap freely into the abdomen. It was clear that there was a diseased segment of sigmoid colon. Points proximal and distal that appeared non-diseased and viable were selected for stapling. FREDDY size 60 stapler was used to fire across the wall of the sigmoid colon. The sigmoid segment was then taken with the LigaSure device from its mesentery and passed off for pathologic diagnosis. The area was then irrigated. We turned our attention to positioning the NG tube, inspecting the remainder of the small bowel and intraabdominal structures. The liver appeared normal. The gallbladder appeared normal and the remainder of the intraabdominal contents appeared non-pathologic. The colon was also evaluated. The distal end of the sigmoid colon was marked with 2-0 Prolene at the corners of the staple line and dropped into the pelvis, at which point we proceeded then with evaluation of the proximal stump to fashion to a colostomy. An area for the colostomy in the left lower quadrant was marked preoperatively with the patient in the seated position for optimum positioning. This area of the skin was incised with the 10 blade scalpel to create a resighini of tissue, which was then cored out to the abdominal fascia just adjacent to the rectus. This area of the fascia was opened and muscle splitting technique allowed for entry into the abdomen. The cut end of the sigmoid colon was then drawn into the defect that was created for the colostomy. There appeared to be a tension-free area where we could easily mature the colostomy postoperatively. Patient then had the abdomen irrigated copiously with about 2 L of sterile irrigation fluid. The colostomy, once delivered into the site, which was retrieved and suctioned from the abdomen. Once the abdominal viscera was returned to the abdomen then we turned our attention finally to closing the midline. A No. 1 looped PDS was used from the inferior and superior poles running towards just above the bellybutton where a knot was tied. The patient had the midline stapled and irrigated in the skin layer. Once this was protected we began then the process of maturing the colostomy. The patient's staple line on the exposed sigmoid colon was opened and then the cardinal points of this sigmoid end colostomy were brooked to the skin everting the mucosa. It appeared viable and healthy with ample room for 2 fingers and the mesentery of the colon itself. The remainder of the colon was then secured to the skin with 3-0 Vicryl. The patient then had a colostomy appliance shaped and cut to size and then applied. He tolerated the procedure well, was stable throughout. Counts were correct prior to closure of the abdomen. MD ORTIZ Rodríguez/[id number]
== END 2019-02-27 15:27 | disposition home or self-care (01) | DRG 221 ==
LOC: FER 11:45 → SUATTDRO 11:45 → SUPCPDRO 11:45 → J7W 19:18 → J8W 02-20 19:50 → J4S 02-24 01:22
PROVIDERS: ADMIT Internal Medicine; ATTEND Nurse Practitioner Acute Care
PROC: 0D1N0Z4 Bypass Sigmoid Colon to Cutaneous, Open Approach (ICD-10-PCS; 2019-02-20)
PROC: 0DTN0ZZ Resection of Sigmoid Colon, Open Approach (ICD-10-PCS; principal; 2019-02-20 13:00)
DX: K57.20 Diverticulitis of large intestine with perforation and abscess without bleeding (principal); F41.8 Other specified anxiety disorders; R19.7 Diarrhea, unspecified; D89.40 Mast cell activation, unspecified; T78.3XXA Angioneurotic edema, initial encounter; F41.0 Panic disorder [episodic paroxysmal anxiety]; R00.0 Tachycardia, unspecified; R41.82 Altered mental status, unspecified; R61 Generalized hyperhidrosis; R55 Syncope and collapse; Y92.89 Other specified places as the place of occurrence of the external cause
CPT/HCPCS: 36415; 70450-TC; 71045-TC-FY; 71046-TC-FY; 74177-TC; 80048; 80053; 81003; 82140; 82550; 82962; 83605; 83735; 84100; 84484; 85025; 85027; 85610; 85730; 86850; 86900; 86901; 87040; 87070; 87075; 87086; 87205; 88307-TC; 93005; 93010; 93306-TC; 93880-TC; 94760; 97116-GP; 97161-GP; 99284-25; J0131; J7030

== ENCOUNTER 2019-07-06 09:18 | Inpatient (IN) | payer OTHER ==
[2019-07-02 16:34] VITALS: BMI 25.7
[2019-07-06] MEDS ORDERED: PROPOFOL 20 ML ONE ×2 (09:55→15:23)
[2019-07-06] MEDS ORDERED: ROCURONIUM BROMIDE 50 MG/5 ML SYRINGE ONE ×2 (09:55→13:31)
[2019-07-06] MEDS ORDERED: DEXAMETHASONE SOD PHOSPHATE 4 MG/1 ML VIAL ONE (09:55)
[2019-07-06] MEDS ORDERED: MIDAZOLAM HCL 2 MG/2 ML SINGLE DOSE VIAL ONE ×5 (09:55→11:53)
[2019-07-06] MEDS ORDERED: HYDROCORTISONE ONE (10:05)
[2019-07-06] MEDS ORDERED: ETOMIDATE 20 MG/10 ML AMPUL IVPUSH ONE (10:06)
[2019-07-06] MEDS ORDERED: KETAMINE HCL 200 MG/20 ML VIAL ONE (10:07)
[2019-07-06] MEDS ORDERED: LIDOCAINE HCL/PF 2% SDV 5ML VIAL ONE (10:08)
--- NOTE | 2019-07-06 10:59 | HP ---
Admitting History and Physical - Primary Care Physician PCP: Deena Pete - Admission Chief Complaint: colostomy status History of Present Illness: 49yo M with h/o anxiety/depression/panic attacks, angioedema, GERD, who had Eliud's procedure for perforated diverticulitis 02/20/19 with colostomy (by Dr. English), overall doing well, presents for colostomy reversal. He had been seen in outpatient clinic and had preop colonoscopy via stoma and stump, which was clear. He has no GI problems, colostomy is functioning well, no other complaints. At his colonoscopy, he had severe reaction with hives to either the Hurricaine spray or propofol (unclear which), but it resolved with 2d of prednisone, benadryl, and he has felt well since. He no longer takes Klonopin or Trazodone, but was found to have a small ulcer on endoscopy, and is on a PPI and Prozac only. He was optimized by his PMD for surgery. He had Golytely prep yesterday, and efflux has been yellow/clear. He reports no pain, last po was his prep yesterday. History Source: Patient, Medical Record Limitations to Obtaining History: No Limitations - Past Medical History Gastrointestinal: Yes: Diverticulitis, Diverticulosis Psych: Yes: Anxiety, Depression, Panic Rheumatology: Yes: Other (angioedema, nonhereditary) - Past Surgical History Past Surgical History: Yes: Colectomy (Eliud's procedure for perf diverticulitis), Colonoscopy, Colostomy, Upper Endoscopy Additional Past Surgical History: birthmark and lipoma removals - Smoking History Smoking history: Never smoked Have you smoked in the past 12 months: No - Alcohol/Substance Use Hx Alcohol Use: No History of Substance Use: reports: Marijuana (rare - last over 6 mos ago) - Social History Usual Living Arrangement: Yes: With Spouse ADL: Independent Occupation: owns [employer] Home Medications - Allergies Allergies/Adverse Reactions: Allergies Allergy/AdvReac Type Severity Reaction Status Date / Time benzocaine [From HurriCaine] AdvReac Severe Hives Verified 07/06/19 11:08 propofol AdvReac Severe Hives Verified 07/06/19 11:08 - Home Medications Home Medications: Ambulatory Orders Fluoxetine HCl [Prozac] 20 mg PO DAILY #30 capsule 02/27/19 Pantoprazole Sodium 40 mg PO DAILY 07/02/19 Family Medical History Other Family History: mother - tobacco, lymphoma, dermatomyositis;. father - tobacco, HTN, diverticulitis, dementia onset 60+. one sister prediabetes, bariatric surgery. no prostate or colon CA Review of Systems - Review of Systems Constitutional: denies: Chills, Fever Eyes: reports: Other (glasses). denies: Recent Change in Vision HENT: denies: Difficult Swallowing, Throat Pain Neck: denies: Swollen Glands, Tenderness Cardiovascular: denies: Chest Pain, Palpitations Respiratory: denies: Cough, SOB Gastrointestinal: denies: Abdominal Pain, Constipation, Diarrhea, Indigestion, Nausea, Vomiting Genitourinary: denies: Burning, Dysuria Musculoskeletal: denies: Back Pain, Joint Pain, Muscle Pain Integumentary: denies: Change in Color, Rash Neurological: denies: Dizziness, Headache, Unsteady Gait Psychiatric: reports: Panic (last attack 1mo ago, feeling well recently). denies: Anxiety (not recently, controlled with med), Depression (not recently, controlled with med) Physical Examination Vital Signs: Vital Signs Temperature 98.1 F 07/06/19 10:22 Pulse Rate 74 07/06/19 10:22 Respiratory Rate 20 07/06/19 10:22 Blood Pressure 126/75 07/06/19 10:22 O2 Sat by Pulse Oximetry (%) 98 07/06/19 10:20 Constitutional: Yes: Well Nourished, No Distress, Calm Eyes: Yes: Conjunctiva Clear, EOM Intact HENT: Yes: Atraumatic, Normocephalic Neck: Yes: Supple, Trachea Midline Cardiovascular: Yes: Regular Rate and Rhythm Respiratory: Yes: Regular, CTA Bilaterally. No: Orthopnea Gastrointestinal: Yes: Normal Bowel Sounds, Soft, Other (colostomy pink, patent , scant yellow fluid in bag; appliance intact). No: Distention, Tenderness ...Rectal Exam: Yes: Deferred Renal/: No: CVA Tenderness - Left, CVA Tenderness - Right Musculoskeletal: No: Back Pain, Joint Stiffness, Joint Swelling Extremities: No: Cool, Cyanosis Edema: No Peripheral Pulses WNL: Yes Integumentary: No: Jaundice, Rash Neurological: Yes: Alert, Oriented Psychiatric: Yes: Alert, Oriented Labs: reviewed from 05/29/19 T&S done this morning Problem List - Problems (1) Colostomy status Assessment/Plan: for reversal of Eliud's procedure today by Dr. Mercedes Jacinto admit postop to surgery periop antibiotics postop pain meds - anticipate PAINTER ROUGH DVT/GI prophylaxis continue home meds perioperatively Dr. Jacinto will discuss with patient risks, benefits and alternatives of reversal of Eliud's procedure/colostomy, including but not limited to bleeding, infection, injury to adjacent structures, intestinal leak or injury, anastomotic leak, intraabdominal abscess, incisional hernia, need for further procedures, ; alternatives include no surgery, which would entail continued colostomy status and carry risks of parastomal hernia in future. Patient desires to proceed with operation. Informed consent will be signed for same. Code(s): Z93.3 - COLOSTOMY STATUS (2) Gastroesophageal reflux disease with ulceration Assessment/Plan: continue home PPI Code(s): K21.9 - GASTRO-ESOPHAGEAL REFLUX DISEASE WITHOUT ESOPHAGITIS (3) Idiopathic angioedema Code(s): T78.3XXA - ANGIONEUROTIC EDEMA, INITIAL ENCOUNTER Qualifiers: Encounter type: sequela Qualified Code(s): T78.3XXS - Angioneurotic edema, sequela (4) Panic anxiety syndrome Code(s): F41.0 - PANIC DISORDER [EPISODIC PAROXYSMAL ANXIETY] (5) Anxiety Assessment/Plan: continue home Prozac Code(s): F41.9 - ANXIETY DISORDER, UNSPECIFIED
[2019-07-06] MEDS ORDERED: cefOXitin SODIUM 2 GM VIAL (RESTRICTED TO ID) IVPB ONE (11:41)
[2019-07-06] MEDS ORDERED: BUPIVACAINE LIPOSOME/PF (EXPAREL) 266 MG/20 ML VIAL ONE ×2 (11:52→11:54)
[2019-07-06] MEDS ORDERED: BUPIVACAINE HCL/PF 0.5% (5 MG/ML) 30 ML VIAL IJ ONE ×2 (11:52→11:55)
[2019-07-06] MEDS ORDERED: cefoTEtan DISODIUM 1 GM VIAL (RESTRICTED TO ID) IVPB ONE (12:46)
[2019-07-06] MEDS ORDERED: SEVOFLURANE 250 ML BTL ONE (13:14)
[2019-07-06] MEDS ORDERED: GLYCOPYRROLATE 0.2 MG/1 ML VIAL ONE (13:55)
[2019-07-06] MEDS ORDERED: NEOSTIGMINE METHYLSULFATE 0.5 MG/ML - 10 ML MDV ONE (13:55)
[2019-07-06] MEDS ORDERED: LACTATED RINGERS SOLUTION 1,000 ML IV SCH (16:15)
[2019-07-06] MEDS ORDERED: ONDANSETRON 4 MG/2 ML VIAL IVPUSH PRN (16:57)
[2019-07-06] MEDS ORDERED: morphine SULFATE 4 MG/ML VIAL IVPUSH PRN (17:10)
[2019-07-06] MEDS: ACETAMINOPHEN 325 MG TABLET (FP) PO SCH ×3 (18:03→23:53)
[2019-07-06] MEDS: LACTATED RINGERS SOLUTION 1,000 ML IV SCH ×2 (18:51→21:17)
[2019-07-06] MEDS: morphine SULFATE 4 MG/ML VIAL IVPUSH PRN (19:57)
[2019-07-06] MEDS ORDERED: IBUPROFEN 600 MG TABLET (FP) PO SCH (21:00)
[2019-07-06] MEDS: IBUPROFEN 600 MG TABLET (FP) PO SCH (21:16)
--- NOTE | 2019-07-06 23:27 | OP ---
DATE OF OPERATION: 07/06/2019 PREOPERATIVE DIAGNOSIS: Colostomy status. POSTOPERATIVE DIAGNOSIS: Colostomy status. PROCEDURE: Reversal of colostomy. ESTIMATED BLOOD LOSS: Approximately 100 mL. COMPLICATIONS: None apparent. INTRAVENOUS FLUIDS: 1400 mL URINE OUTPUT: 100 mL ANESTHESIOLOGIST: Dr. Ramsay ANESTHESIA: General endotracheal anesthesia. Local anesthesia preoperatively. SURGEON: Mercedes Jacinto M.D. SIDE SEAM TENDER: Horace Tang M.D. INDICATION: This is a 49-year-old male who underwent a Eliud procedure for perforated diverticulitis with Dr. English on February 20, 2019, and healed up well, was scheduled for colostomy reversal today. OPERATION IN DETAILS: The patient was identified in the OR holding area. Informed consent was obtained. The risks of the operation, including but not limited to: infection, bleeding, injury to the intraabdominal organs, anastomotic leak or breakdown, hernia were explained to the patient. He appeared to understand, voluntarily signed the consent and wished to proceed with the planned operation. The patient was brought to the operating suite and placed in the supine position. Prior to induction of general endotracheal anesthesia, bilateral sequential compression devices were placed on the lower extremities. After induction of general endotracheal anesthesia, a Elizabeth catheter was placed in the urinary bladder, and the patient was placed into dorsal lithotomy position, and the abdomen was prepped and draped in the usual sterile fashion. After we placed him in Trendelenburg, a timeout was called in a standard format, and IV antibiotics were administered via Anesthesia. Attention was then turned to the midline where a midline incision was made at the previous laparotomy with a number 10 scalpel. The subcutaneous tissue was divided with Bovie electrocautery, and the fascia was encountered, the fascia was opened, and the peritoneum was encountered and divided with Bovie electrocautery. The fascia and peritoneum were opened throughout the length of the wound. Dense adhesions of the omentum to the anterior abdominal wall were taken down using a combination of blunt dissection and Bovie electrocautery and Metzenbaum scissors . The adhesions of the colostomy to the anterior abdominal wall were taken down using Bovie electrocautery and sharp dissection with Metzenbaum scissors. The colostomy was then taken down by making a circular incision around it with a number 15 scalpel, dividing down to the fascia and freeing the attachments. The colostomy was brought into the operative field and divided with a GIA60 stapler with a blue load. It was sent as a separate specimen. The attention was then turned to the pelvis, where the Prolene sutures from the Eliud procedure were followed, and the rectum and sigmoid colon were adherent to the left sidewall. These adhesions were taken down using a combination of Bovie electrocautery and blunt dissection. Once the rectum and colon were freed pursestring device was placed across the previous colostomy site and fired. There was some bleeding from the mesentery, and this was controlled using 3-0 Vicryl sutures. The anvil for the 20 EEA was then placed into the colon, and the pursestring was tied. However, there was a significant amount of fatty debris around the colonic wall and in dissecting this away, the colon was entered, so therefore, the pursestring was removed, and a new pursestring of 0 Prolene was placed, and the 28 EEA that was placed into the colon, and the pursestring was tied. I then went to the rectum, and after sizing the rectum, placed the 28 EEA stapler into the rectum and the male portion was brought out through the sigmoid remnant/rectal stump, and the anvil was placed on it, and the EEA was closed and fired. The EEA was removed, and 2 complete donuts were seen. I then placed a sigmoidoscope and placed that into the rectum, and the animal assistant surgeon then clamped the proximal colon and fluid was placed in the pelvis. Air was placed in the rectum, and there were no air bubbles seen, signifying a patent anastomosis. The abdomen was then irrigated with normal saline, and the irrigant was suctioned out. The operative field was inspected for hemostasis, and adequate hemostasis was observed. The peritoneum at the previous colostomy site was then closed using 0 PDS in a running fascia. The fascia at the previous colostomy site was closed using 0 PDS in an interrupted fashion. A new tray was then used and the operative staff changed their gown and gloves, and the midline fascia was closed using number 1 looped PDS using 2 sutures in the middle. The wound was then irrigated and the wound was closed with david. The patient tolerated the procedure well with no apparent complications, was extubated in the operating room, and brought to the recovery room in satisfactory condition. He will be transferred to the floor for postoperative care. All sponge, needle, and instrument counts were correct at the end of the case. DO JOSHUA NOLASCO/[id number]
[2019-07-07] MEDS: IBUPROFEN 600 MG TABLET (FP) PO SCH ×4 (02:42→21:11)
[2019-07-07] MEDS: morphine SULFATE 4 MG/ML VIAL IVPUSH PRN ×6 (02:57→18:49)
[2019-07-07] MEDS: ACETAMINOPHEN 325 MG TABLET (FP) PO SCH ×3 (06:16→17:53)
[2019-07-07 08:40] LABS: BASO % 0.2 % (0-2.0); EOS % 0.1 % (0-4.5); HEMOGLOBIN 14.4 GM/dL (11.7-16.9); LYMPH % 9.5 % (8-40); MCHC 34.3 g/dl (32.0-35.9); MEAN CELL VOLUME 87.4 fl (80-96); MONO % 10.1 % (3.8-10.2); NEUT % 80.1 % (42.8-82.8); PLATELET COUNT 147 K/MM3 (134-434); RDW 13.7 % (11.9-15.9); WHITE BLOOD COUNT 9.6 K/mm3 (4.0-10.0)
--- NOTE | 2019-07-07 08:49 | PN ---
Progress Note (short form) - Note Progress Note: Anesthesia postop note 49 y/o M s/p GA for reversal of colostomy, TAp blocks for postop pain management. PO#1, vss, aaox3, pain well controlled, encouraged to use incentive spirometry. No anesthesia complications.
[2019-07-07] MEDS: ENOXAPARIN NA (PORCINE) 40 MG/0.4 ML DISP.SYRIN SQ SCH (09:11)
[2019-07-07 09:12] LABS: ALBUMIN 3.2 g/dl (3.4-5.0); BILIRUBIN,TOTAL 0.9 mg/dL (0.2-1); BLOOD UREA NITROGEN 11.4 mg/dL (7-18); CALCIUM 8.2 mg/dL (8.5-10.1); CREATININE 0.8 mg/dL (0.55-1.3); MAGNESIUM 1.8 mg/dL (1.8-2.4); PHOSPHOROUS 2.9 mg/dL (2.5-4.9); POTASSIUM 3.8 mmol/L (3.5-5.1); TOT PROT 5.9 g/dl (6.4-8.2)
[2019-07-07] MEDS: PANTOPRAZOLE 40 MG TABLET (FP) PO SCH (09:12)
[2019-07-07] MEDS: FLUoxetine HCL 20 MG CAPSULE (FP) PO SCH (09:12)
[2019-07-07] MEDS: LACTATED RINGERS SOLUTION 1,000 ML IV SCH (09:13)
[2019-07-07] MEDS ORDERED: ENOXAPARIN NA (PORCINE) 40 MG/0.4 ML DISP.SYRIN SQ SCH (10:00)
[2019-07-07] MEDS ORDERED: PANTOPRAZOLE 40 MG TABLET (FP) PO SCH (10:00)
[2019-07-07] MEDS ORDERED: FLUoxetine HCL 20 MG CAPSULE (FP) PO SCH (10:00)
--- NOTE | 2019-07-07 15:47 | PN ---
Progress Note, Physician History of Present Illness: Covering for Dr. Jacinto: s/p colostomy reversal from Eliud's for perforated diverticulitis end of January seen and examined in bed with present overall feeling ok, does have some pain at times - managing well with alternating tylenol and ibuprofen scheduled, prn morphine (used twice so far) has not been OOB or ambulated yet tolerating clears, no flatus or BM yet Elizabeth with 450 recorded out last night, full bag of yellow urine now c/o not sleeping well but does not want sleeping meds - Current Medication List Current Medications: Active Medications Acetaminophen (Tylenol -) 650 mg PO Q6H [facility] Last Admin: 07/07/19 12:34 Dose: 650 mg Enoxaparin Sodium (Lovenox -) 40 mg SQ DAILY [facility] Last Admin: 07/07/19 09:11 Dose: 40 mg Fluoxetine HCl (Prozac -) 20 mg PO DAILY [facility] Last Admin: 07/07/19 09:12 Dose: 20 mg Ibuprofen (Motrin -) 600 mg PO Q6H [facility] Last Admin: 07/07/19 14:53 Dose: 600 mg Morphine Sulfate (Morphine Sulfate) 4 mg IVPUSH Q3H PRN PRN Reason: Pain Level 7 - 10 BREAKTHROUGH Last Admin: 07/07/19 12:34 Dose: 4 mg Pantoprazole Sodium (Protonix -) 40 mg PO DAILY [facility] Last Admin: 07/07/19 09:12 Dose: 40 mg - Objective Vital Signs: Vital Signs Temperature 98.2 F 07/07/19 13:55 Pulse Rate 81 07/07/19 13:55 Respiratory Rate 17 07/07/19 13:55 Blood Pressure 132/93 07/07/19 13:55 O2 Sat by Pulse Oximetry (%) 98 07/07/19 09:00 Constitutional: Yes: Well Nourished, No Distress, Calm Eyes: Yes: Conjunctiva Clear, EOM Intact HENT: Yes: Atraumatic, Normocephalic Cardiovascular: Yes: Regular Rate and Rhythm Respiratory: Yes: Regular, CTA Bilaterally Gastrointestinal: Yes: Normal Bowel Sounds, Soft, Distention (mild), Tenderness (incisional mainly - midline and near old stoma site; appropriate for postop). No: Tenderness, Rebound Genitourinary: Yes: Elizabeth Present. No: Hematuria Musculoskeletal: No: Joint Stiffness, Joint Swelling Extremities: No: Cool, Cyanosis Integumentary: Yes: Incision (midline, old stoma site dressed). No: Jaundice, Rash Wound/Incision: Yes: Dressing Dry and Intact, Draining (serous staining on old stoma site dsg). No: Dressing Removed Neurological: Yes: Alert, Oriented Labs: CBC, BMP 07/07/19 08:00 07/07/19 08:00 Mg, Phos normal CMP Sodium 136 mmol/L (136-145) 07/07/19 08:00 Potassium 3.8 mmol/L (3.5-5.1) 07/07/19 08:00 Chloride 104 mmol/L (98-107) 07/07/19 08:00 Carbon Dioxide 26 mmol/L (21-32) 07/07/19 08:00 Anion Gap 7 MMOL/L (8-16) L 07/07/19 08:00 BUN 11.4 mg/dL (7-18) 07/07/19 08:00 Creatinine 0.8 mg/dL (0.55-1.3) 07/07/19 08:00 Est GFR (CKD-EPI)AfAm 122.43 07/07/19 08:00 Est GFR (CKD-EPI)NonAf 105.63 07/07/19 08:00 Random Glucose 105 mg/dL (74-106) 07/07/19 08:00 Calcium 8.2 mg/dL (8.5-10.1) L 07/07/19 08:00 Phosphorus 2.9 mg/dL (2.5-4.9) 07/07/19 08:00 Magnesium 1.8 mg/dL (1.8-2.4) 07/07/19 08:00 Total Bilirubin 0.9 mg/dL (0.2-1) 07/07/19 08:00 AST 13 U/L (15-37) L 07/07/19 08:00 ALT 15 U/L (13-61) 07/07/19 08:00 Alkaline Phosphatase 68 U/L (45-117) 07/07/19 08:00 Total Protein 5.9 g/dl (6.4-8.2) L 07/07/19 08:00 Albumin 3.2 g/dl (3.4-5.0) L 07/07/19 08:00 Problem List - Problems (1) Colostomy status Assessment/Plan: POD1 s/p reversal of Eliud's procedure pain controlled with meds incisional dressings intact - will change stoma site tomorrow urine output good, no bowel function yet d/c IV fluids, lytes ok clears until + bowel function d/c Elizabeth OOB, to chair and ambulate - up today continue IS, pulm toilet, O2 only if indicated continue home meds DVT/GI prophylaxis labs in am Code(s): Z93.3 - COLOSTOMY STATUS (2) Gastroesophageal reflux disease with ulceration Assessment/Plan: continue home PPI Code(s): K21.9 - GASTRO-ESOPHAGEAL REFLUX DISEASE WITHOUT ESOPHAGITIS (3) Idiopathic angioedema Code(s): T78.3XXA - ANGIONEUROTIC EDEMA, INITIAL ENCOUNTER Qualifiers: Encounter type: sequela Qualified Code(s): T78.3XXS - Angioneurotic edema, sequela (4) Panic anxiety syndrome Code(s): F41.0 - PANIC DISORDER [EPISODIC PAROXYSMAL ANXIETY] (5) Anxiety Assessment/Plan: continue home Prozac Code(s): F41.9 - ANXIETY DISORDER, UNSPECIFIED
[2019-07-07] MEDS ORDERED: DEXTROSE 5%-LACTATED RINGERS 1,000 ML IV SCH (19:30)
--- NOTE | 2019-07-07 19:40 | RAPID ---
Physical Examination Vital Signs: Vital Signs Temperature 98.0 F 07/07/19 19:03 Pulse Rate 74 07/07/19 19:03 Respiratory Rate 17 07/07/19 13:55 Blood Pressure 144/80 07/07/19 19:03 O2 Sat by Pulse Oximetry (%) 98 07/07/19 09:00 Labs: CBC, BMP 07/07/19 08:00 07/07/19 08:00 Rapid Response - Rapid Response Assessment: Rapid response was called at 19:18 pm Nurse was concerned with patient demeanor and thought pt had AMS: Per nurse, pt was shivering, sweaty and concerned as he felt similar prior to coding on a prior admission. Pt had one episode of bilious vomiting 10 minutes prior to the rapid being called. Pt had tapia removal around 3pm and has not voided since. Pt has been tolerating clear diet as per nursing staff. Also complains of "cold , hot then cold at the same time". No Chest pain, no SOB. Additionally complained of vague abdominal pain most prominent over the b/l lower quadrants. VS minutes prior to rapid : 99 F 88bpm 149/95 mmHg 97% on RA VS during rapid : 98.2F rectal 100.6F 107bpm 162/102mmHg 99@ on RA General : anxious, shivering, diaphoretic, in ,in mod distress HEENT : PEER[place], moist mucous membranes ChEST: Vesicular breath sounds b/l HEART: tachycardic but RRR, no MRG ABDOMEN: 2 serosanguinous fluid tinged dressings from colostomy reversal surgical sites. tenderness and pain present but more significant in the suprapubic region. No rebound or guarding NEURO: CN 2-12 intact. Motor 5/5 in all muscle groups and sensation intact on face and body A&P 49yo M with h/o anxiety/depression/panic attacks, angioedema, GERD, who had Eliud's procedure for perforated diverticulitis 02/20/19 with colostomy (by Dr. English) s/p colostomy reversal with low grade fever, chills, tachycardia, and abdominal pain concerning for sepsis vs post op complication Sepsis work up : CBC, CMP, trop, Lactic acid, UA, Urine and blood cultures, CXR CT abdomen and pelvis to r/o perf, fluid collection within abdominal cavity Stat EKG D5LR @100cc/hr Bladder scan revealed 1000 m : Tapia reinserted Findings made aware to Dr Tang by nursing staff Will consider starting Antibiotics if pt develops leukocytosis
[2019-07-07 20:22] LABS: EPI CELLS 0.3 /HPF (0-5/HPF); HYALINE CASTS 1 /lpf (0-8); PH,URINE 7.5 (5.0-8.0); URINE APPEARANCE CLEAR; URINE BACTERIA 0.2 /hpf (NEGATIVE); URINE BILIRUBIN NEGATIVE (NEGATIVE); URINE COLOR YELLOW; URINE GLUCOSE (UA) NEGATIVE (NEGATIVE); URINE KETONE NEGATIVE (NEGATIVE); URINE LEUK ESTERASE NEGATIVE (NEGATIVE); URINE NITRITE NEGATIVE (NEGATIVE); URINE PROTEIN 1+ (NEGATIVE); URINE UROBILINOGEN 0.2 mg/dL (0.2-1.0); URINE WBC 1 /hpf (0-5)
[2019-07-07 20:40] LABS: URINE RBC 4 /hpf (0-4)
[2019-07-07 20:44] LABS: BASO % 0.4 % (0-2.0); EOS % 0.8 % (0-4.5); HEMATOCRIT 40.8 % (35.4-49); HEMOGLOBIN 14.1 GM/dL (11.7-16.9); LYMPH % 7.1 % (8-40); MCH 30.3 pg (25.7-33.7); MCHC 34.5 g/dl (32.0-35.9); MEAN CELL VOLUME 87.8 fl (80-96); MEAN PLT VOLUME 8.8 fl (7.5-11.1); MONO % 7.3 % (3.8-10.2); NEUT % 84.4 % (42.8-82.8); PLATELET COUNT 125 K/MM3 (134-434); RBC 4.65 M/mm3 (4.00-5.60); RDW 13.3 % (11.9-15.9); WHITE BLOOD COUNT 10.1 K/mm3 (4.0-10.0)
--- NOTE | 2019-07-07 20:57 | PN ---
Progress Note (short form) - Note Progress Note: I was made aware of current events and rapid response by nursing. Patient had bladder scan with >500ml present; Elizabeth was reinserted with 360ml immediately, then 550ml in next 45 minutes (total 910ml). Pt feeling much better per nurse, vitals ok with HR 88, BP 150s/90, T98.8. Spoke with resident on hospitalist team - cancelled CT. Sepsis highly unlikely. CT on POD1 would show some intraperitoneal fluid and air , postop changes, and at this point, a decompressed bladder with Elizabeth. Labs ok , gentle fluids ok for tonight. Will order zofran prn, but suspect symptoms were all related to bladder distention and retention. No indication for antibiotics at this time. Continue to monitor closely. Pain meds to continue. Encourage OOB when able. Problem List - Problems (1) Colostomy status Code(s): Z93.3 - COLOSTOMY STATUS (2) Gastroesophageal reflux disease with ulceration Code(s): K21.9 - GASTRO-ESOPHAGEAL REFLUX DISEASE WITHOUT ESOPHAGITIS (3) Idiopathic angioedema Code(s): T78.3XXA - ANGIONEUROTIC EDEMA, INITIAL ENCOUNTER Qualifiers: Encounter type: sequela Qualified Code(s): T78.3XXS - Angioneurotic edema, sequela (4) Panic anxiety syndrome Code(s): F41.0 - PANIC DISORDER [EPISODIC PAROXYSMAL ANXIETY] (5) Anxiety Code(s): F41.9 - ANXIETY DISORDER, UNSPECIFIED
[2019-07-07 21:25] LABS: ALBUMIN 3.4 g/dl (3.4-5.0); ALK PHOS 71 U/L (45-117); ANION GAP 5 MMOL/L (8-16); BILIRUBIN,TOTAL 1.2 mg/dL (0.2-1); BLOOD UREA NITROGEN 10.5 mg/dL (7-18); CALCIUM 8.5 mg/dL (8.5-10.1); CHLORIDE 105 mmol/L (98-107); CO2 28 mmol/L (21-32); CREATININE 0.7 mg/dL (0.55-1.3); GLUCOSE,RANDOM 129 mg/dL (74-106); POTASSIUM 3.6 mmol/L (3.5-5.1); SGOT/AST 12 U/L (15-37); SGPT/ALT 15 U/L (13-61); SODIUM 138 mmol/L (136-145); TOT PROT 6.2 g/dl (6.4-8.2)
[2019-07-08] MEDS: ACETAMINOPHEN 325 MG TABLET (FP) PO SCH ×4 (00:05→17:25)
[2019-07-08] MEDS: IBUPROFEN 600 MG TABLET (FP) PO SCH ×4 (02:47→21:36)
--- NOTE | 2019-07-08 10:37 | PN ---
Progress Note, Physician History of Present Illness: Covering for Dr. Jacinto: s/p colostomy reversal from Eliud's for perforated diverticulitis end of January seen and examined in bed, resting comfortably but easily woken Events of last night noted and reviewed. Pt had episode of emesis, tachycardia, hypertension, shaking, suprapubic pain about 3-4 hrs after Elizabeth removed. He had been unable to sit all the way up on edge of bed or stand to void, and was not able to void. Bladder scan showed >500ml then almost 1L. Elizabeth was reinserted with output of 910ml within an hour and relief of patient's discomfort. Labs were sent, CXR done showing some expected residual free air under right diaphragm (was POD1). He has since tolerated clears again for breakfast, is tired but has been resting. Reports feeling rumbling in lower abdomen, few very small flatus episodes, no BM yet but might be coming. Also notes a mild headache. Pain managed with alternating tylenol and ibuprofen scheduled, prn morphine Elizabeth with over 2L out for yesterday, 300ml in meter now last 3 hrs. Using IS with very good effort, ~2L inspiration. - Current Medication List Current Medications: Active Medications Acetaminophen (Tylenol -) 650 mg PO Q6H [facility] Last Admin: 07/08/19 05:53 Dose: 650 mg Enoxaparin Sodium (Lovenox -) 40 mg SQ DAILY [facility] Last Admin: 07/07/19 09:11 Dose: 40 mg Fluoxetine HCl (Prozac -) 20 mg PO DAILY [facility] Last Admin: 07/07/19 09:12 Dose: 20 mg Ibuprofen (Motrin -) 600 mg PO Q6H [facility] Last Admin: 07/08/19 02:47 Dose: 600 mg Morphine Sulfate (Morphine Sulfate) 4 mg IVPUSH Q3H PRN PRN Reason: Pain Level 7 - 10 BREAKTHROUGH Last Admin: 07/07/19 18:49 Dose: 4 mg Pantoprazole Sodium (Protonix -) 40 mg PO DAILY [facility] Last Admin: 07/07/19 09:12 Dose: 40 mg - Objective Vital Signs: Vital Signs Temperature 99.4 F 07/08/19 06:21 Pulse Rate 86 07/08/19 06:21 Respiratory Rate 18 07/08/19 06:21 Blood Pressure 128/78 07/08/19 06:21 O2 Sat by Pulse Oximetry (%) 97 07/07/19 21:00 Constitutional: Yes: Well Nourished, No Distress, Calm Eyes: Yes: Conjunctiva Clear, EOM Intact HENT: Yes: Atraumatic, Normocephalic Cardiovascular: Yes: Regular Rate and Rhythm Respiratory: Yes: Regular, CTA Bilaterally, On Nasal O2 Gastrointestinal: Yes: Normal Bowel Sounds (more on left than right, upper and lower), Soft, Distention (mild), Tenderness (mild diffuse, more incisionally, appropriate for postop) Genitourinary: Yes: Elizabeth Present. No: Hematuria Musculoskeletal: No: Joint Stiffness, Joint Swelling Extremities: No: Cool, Cyanosis Integumentary: Yes: Incision (midline and old stoma site dressed). No: Jaundice , Rash Wound/Incision: Yes: Well Approximated (midline), [place] Intact (midline), Dressing Dry and Intact (old stoma site with dried serous staining), Dressing Removed (both sites), Bleeding (few small spots between david oozing after dressing removal in midline - gauze replaced over david), Unapproximated (old stoma site - clean, packing removed, minimally tender; repacked with saline damp 4x4 gauze x2 pieces, covered with folded dry gauze and tape). No: Reddened Neurological: Yes: Alert, Oriented Labs: CBC, BMP 07/07/19 20:15 07/07/19 20:15 lactate 1.3 last night trop normal - ....Imaging Chest X-ray: Report Reviewed, Image Reviewed Problem List - Problems (1) Colostomy status Assessment/Plan: POD2 s/p reversal of Eliud's procedure pain controlled with meds incision with david ok - few spots on skin edges with slight oozing, gauze replaced for now old stoma site repacked - will need daily wound care with saline-damp packing/ dressing changes after discharge SW/CM to arrange for VNS on d/c home urine output good, rare flatus but no BM yet d/c IV fluids, labs in am clears until + bowel movement continue Elizabeth PT ordered to assist with mobilization encourage OOB, to chair and ambulate continue IS, pulm toilet continue home meds DVT/GI prophylaxis Code(s): Z93.3 - COLOSTOMY STATUS (2) Gastroesophageal reflux disease with ulceration Assessment/Plan: continue home PPI Code(s): K21.9 - GASTRO-ESOPHAGEAL REFLUX DISEASE WITHOUT ESOPHAGITIS (3) Idiopathic angioedema Code(s): T78.3XXA - ANGIONEUROTIC EDEMA, INITIAL ENCOUNTER Qualifiers: Encounter type: sequela Qualified Code(s): T78.3XXS - Angioneurotic edema, sequela (4) Panic anxiety syndrome Code(s): F41.0 - PANIC DISORDER [EPISODIC PAROXYSMAL ANXIETY] (5) Anxiety Assessment/Plan: continue home Prozac Code(s): F41.9 - ANXIETY DISORDER, UNSPECIFIED
[2019-07-08] MEDS: PANTOPRAZOLE 40 MG TABLET (FP) PO SCH (10:49)
[2019-07-08] MEDS: FLUoxetine HCL 20 MG CAPSULE (FP) PO SCH (10:49)
[2019-07-08] MEDS: ENOXAPARIN NA (PORCINE) 40 MG/0.4 ML DISP.SYRIN SQ SCH (10:50)
[2019-07-08] MEDS: morphine SULFATE 4 MG/ML VIAL IVPUSH PRN ×2 (10:51→14:57)
--- NOTE | 2019-07-08 14:23 | EKG ---
Test Reason : Blood Pressure : / mmHG Vent. Rate : 087 BPM Atrial Rate : 087 BPM P-R Int : 128 ms QRS Dur : 084 ms QT Int : 376 ms P-R-T Axes : 037 008 005 degrees QTc Int : 452 ms NORMAL SINUS RHYTHM NORMAL ECG WHEN COMPARED WITH ECG OF 24-FEB-2019 00:35, NONSPECIFIC T WAVE ABNORMALITY NO LONGER EVIDENT IN ANTERIOR LEADS Confirmed by AZUL BERMUDEZ, ROWDY ([id number]) on 07/08/2019 2:22:50 PM Referred By: Mercedes Jacinto Confirmed By:ROWDY LIANG MD
[2019-07-08] MEDS: AMINO ACIDS/PROTEIN HYDROLYS 30 ML LIQUID.PKT PO SCH (17:24)
[2019-07-09] MEDS: ACETAMINOPHEN 325 MG TABLET (FP) PO SCH ×4 (00:11→17:49)
[2019-07-09] MEDS: IBUPROFEN 600 MG TABLET (FP) PO SCH ×4 (03:21→21:16)
[2019-07-09] MEDS: AMINO ACIDS/PROTEIN HYDROLYS 30 ML LIQUID.PKT PO SCH ×2 (08:20→17:11)
[2019-07-09 08:57] LABS: BASO % 0.3 % (0-2.0); EOS % 3.5 % (0-4.5); HEMATOCRIT 38.6 % (35.4-49); HEMOGLOBIN 13.1 GM/dL (11.7-16.9); LYMPH % 16.6 % (8-40); MCH 29.7 pg (25.7-33.7); MEAN CELL VOLUME 87.2 fl (80-96); MEAN PLT VOLUME 8.6 fl (7.5-11.1); MONO % 7.6 % (3.8-10.2); PLATELET COUNT 138 K/MM3 (134-434); RBC 4.42 M/mm3 (4.00-5.60); RDW 13.2 % (11.9-15.9)
[2019-07-09 09:16] LABS: BLOOD UREA NITROGEN 10.4 mg/dL (7-18); CALCIUM 8.6 mg/dL (8.5-10.1); CREATININE 0.6 mg/dL (0.55-1.3); MAGNESIUM 1.9 mg/dL (1.8-2.4); PHOSPHOROUS 2.5 mg/dL (2.5-4.9); POTASSIUM 3.5 mmol/L (3.5-5.1)
[2019-07-09] MEDS: PANTOPRAZOLE 40 MG TABLET (FP) PO SCH (09:50)
[2019-07-09] MEDS: ENOXAPARIN NA (PORCINE) 40 MG/0.4 ML DISP.SYRIN SQ SCH (09:50)
[2019-07-09] MEDS: FLUoxetine HCL 20 MG CAPSULE (FP) PO SCH (09:50)
--- NOTE | 2019-07-09 16:57 | PATH ---
Surgical Pathology Report Patient Name: NORMAN KENNEDY Med. Rec. #: [id number] /Age/Gender: 1970 (Age: 49) / M Account: [id number] Location: [address] [place] [address]/[facility] Taken: 07/07/2019 Received: 07/07/2019 Reported: 07/09/2019 Physicians: Mercedes Jacinto Specimen(s) Received SIGMOID COLON COLOSTOMY Clinical History Status post Eliud's 02/20/19 for perforated diverticulitis Final Diagnosis SIGMOID COLON COLOSTOMY SITE AND DONUTS, EXCISION: PORTION OF SKIN AND ADJACENT COLON WITH FOCAL MILD NONSPECIFIC CHRONIC INFLAMMATION. VIABLE COLONIC MARGIN. SEPARATE SEGMENTS OF COLON (DONUTS) WITH NO SIGNIFICANT PATHOLOGIC CHANGE. Electronically Signed Ivan Perez M.D. Gross Description Received in formalin labeled "sigmoid colon-colostomy site and donuts," is a 2.5 x 1.5 cm fox, elliptical portion of skin with a central os, consistent with a colostomy. The colostomy displays a 2.4 cm in length attached portion of bowel with a stapled distal margin. No lesions are identified. Separately received within the same container are 2 annular portions of bowel, consistent with donuts. Ophthalmic Assistant sections are submitted in 4 cassettes as follows: 1-colostomy; 2-distal stapled mucosal margin of colostomy; 7-2-[id number] received donuts. /07/07/201907/07/2019
--- NOTE | 2019-07-09 18:26 | PN ---
Progress Note, Physician History of Present Illness: Covering for Dr. Jacinto: s/p colostomy reversal from Eliud's for perforated diverticulitis end of January seen and examined in bed, comfortable has been OOB and ambulating today tolerating full liquids, having flatus and small clear BMs with old blood tinge pain managed with alternating tylenol and ibuprofen, prn morphine occas Elizabeth with 1250ml out yesterday, 800ml at 3pm. Hydrating self, off fluids. Using IS with very good effort, ~2L inspiration. - Current Medication List Current Medications: Active Medications Acetaminophen (Tylenol -) 650 mg PO Q6H [facility] Last Admin: 07/09/19 17:49 Dose: 650 mg Amino Acids (Prosource No Carb Liquid Pkt) 30 ml PO BID@0800,1730 [facility] Last Admin: 07/09/19 17:11 Dose: 30 ml Enoxaparin Sodium (Lovenox -) 40 mg SQ DAILY [facility] Last Admin: 07/09/19 09:50 Dose: 40 mg Fluoxetine HCl (Prozac -) 20 mg PO DAILY [facility] Last Admin: 07/09/19 09:50 Dose: 20 mg Ibuprofen (Motrin -) 600 mg PO Q6H [facility] Last Admin: 07/09/19 15:04 Dose: 600 mg Morphine Sulfate (Morphine Sulfate) 4 mg IVPUSH Q3H PRN PRN Reason: Pain Level 7 - 10 BREAKTHROUGH Last Admin: 07/08/19 14:57 Dose: 4 mg Pantoprazole Sodium (Protonix -) 40 mg PO DAILY [facility] Last Admin: 07/09/19 09:50 Dose: 40 mg - Objective Vital Signs: Vital Signs Temperature 98.6 F 07/09/19 13:00 Pulse Rate 82 07/09/19 13:00 Respiratory Rate 20 07/09/19 13:00 Blood Pressure 132/74 07/09/19 13:00 O2 Sat by Pulse Oximetry (%) 95 07/09/19 09:00 Constitutional: Yes: Well Nourished, No Distress, Calm Eyes: Yes: Conjunctiva Clear, EOM Intact HENT: Yes: Atraumatic, Normocephalic Cardiovascular: Yes: Regular Rate and Rhythm Respiratory: Yes: Regular, CTA Bilaterally Gastrointestinal: Yes: Normal Bowel Sounds, Soft, Tenderness (mild, mostly incisional, no rebound). No: Distention Genitourinary: Yes: Elizabeth Present. No: Hematuria Extremities: No: Cool, Cyanosis Integumentary: Yes: Incision (midline dressed). No: Jaundice, Rash Wound/Incision: Yes: Clean/Dry (midline), Well Approximated (midline), [place] Intact (midline), Dressing Dry and Intact, Dressing Removed (from midline and stoma site), Draining (mild serous staining on stoma site), Bleeding (skin edges in couple spots on midline oozed when stuck gauze removed - silver nitrate used to stop bleeding with complete cessation - left open to air), Unapproximated (old stoma site clean, yellow/red doan, not granulating yet; silver nitrate used on small oozing spot just inside inferior edge after dressing removed - repacked with saline-damp 4x4 gauze x2, covered with folded gauze and tape). No: Reddened Neurological: Yes: Alert, Oriented Labs: CBC, BMP 07/09/19 08:03 07/09/19 08:03 Mg, phos normal Microbiology 07/07/19 19:45 Urine Culture - Final Urine - Urine - Catheterized NO GROWTH OBTAINED 07/07/19 20:30 Blood Culture - Preliminary Blood - Peripheral Venous NO GROWTH OBTAINED AFTER 24 HOURS, INCUBATION TO CONTINUE FOR 4 DAYS. 07/07/19 20:15 Blood Culture - Preliminary Blood - Peripheral Venous NO GROWTH OBTAINED AFTER 24 HOURS, INCUBATION TO CONTINUE FOR 4 DAYS. Problem List - Problems (1) Colostomy status Assessment/Plan: POD3 s/p reversal of Eliud's procedure pain controlled with meds incision with david ok - few spots on skin edges with slight oozing when gauze removed silver nitrate used to stop bleeding - left open to air old stoma site repacked - will need daily wound care with saline-damp packing/ dressing changes after discharge SW/CM arranging for VNS on d/c home urine output good, Elizabeth in place + bowel function advance to regular diet in am d/c Elizabeth in am PT assisting with mobilization OOB, to chair and ambulate as much as possible continue IS, pulm toilet continue home meds DVT/GI prophylaxis Code(s): Z93.3 - COLOSTOMY STATUS (2) Gastroesophageal reflux disease with ulceration Assessment/Plan: continue home PPI Code(s): K21.9 - GASTRO-ESOPHAGEAL REFLUX DISEASE WITHOUT ESOPHAGITIS (3) Idiopathic angioedema Code(s): T78.3XXA - ANGIONEUROTIC EDEMA, INITIAL ENCOUNTER Qualifiers: Encounter type: sequela Qualified Code(s): T78.3XXS - Angioneurotic edema, sequela (4) Panic anxiety syndrome Code(s): F41.0 - PANIC DISORDER [EPISODIC PAROXYSMAL ANXIETY] (5) Anxiety Assessment/Plan: continue home Prozac Code(s): F41.9 - ANXIETY DISORDER, UNSPECIFIED
[2019-07-10] MEDS: ACETAMINOPHEN 325 MG TABLET (FP) PO SCH ×3 (00:04→11:39)
[2019-07-10] MEDS: IBUPROFEN 600 MG TABLET (FP) PO SCH ×3 (03:01→15:30)
[2019-07-10] MEDS: AMINO ACIDS/PROTEIN HYDROLYS 30 ML LIQUID.PKT PO SCH ×2 (08:45→17:20)
[2019-07-10] MEDS: FLUoxetine HCL 20 MG CAPSULE (FP) PO SCH (09:46)
[2019-07-10] MEDS: PANTOPRAZOLE 40 MG TABLET (FP) PO SCH (09:46)
[2019-07-10] MEDS: ENOXAPARIN NA (PORCINE) 40 MG/0.4 ML DISP.SYRIN SQ SCH (09:46)
--- NOTE | 2019-07-10 16:40 | PN ---
Progress Note, Physician History of Present Illness: Covering for Dr. Jacinto: s/p colostomy reversal from Eliud's for perforated diverticulitis end of January seen and examined ambulating in room, just voided in bathroom reports having more loose BMs, no more blood, getting browner has been OOB and ambulating today tolerating regular diet breakfast and lunch today pain managed with alternating tylenol and ibuprofen only Elizabeth out this am - voiding well on his own Using IS with very good effort overall feeling well, minimal pain, mainly incisional with coughing - Current Medication List Current Medications: Active Medications Acetaminophen (Tylenol -) 650 mg PO Q6H [facility] Last Admin: 07/10/19 11:39 Dose: 650 mg Amino Acids (Prosource No Carb Liquid Pkt) 30 ml PO BID@0800,1730 [facility] Last Admin: 07/10/19 08:45 Dose: 30 ml Enoxaparin Sodium (Lovenox -) 40 mg SQ DAILY [facility] Last Admin: 07/10/19 09:46 Dose: 40 mg Fluoxetine HCl (Prozac -) 20 mg PO DAILY [facility] Last Admin: 07/10/19 09:46 Dose: 20 mg Ibuprofen (Motrin -) 600 mg PO Q6H [facility] Last Admin: 07/10/19 15:30 Dose: 600 mg Pantoprazole Sodium (Protonix -) 40 mg PO DAILY [facility] Last Admin: 07/10/19 09:46 Dose: 40 mg - Objective Vital Signs: Vital Signs Temperature 98.4 F 07/10/19 13:00 Pulse Rate 100 H 07/10/19 13:00 Respiratory Rate 18 07/10/19 14:00 Blood Pressure 142/86 07/10/19 13:00 O2 Sat by Pulse Oximetry (%) 96 07/10/19 09:00 Constitutional: Yes: Well Nourished, No Distress, Calm Eyes: Yes: Conjunctiva Clear, EOM Intact HENT: Yes: Atraumatic, Normocephalic Cardiovascular: Yes: Regular Rate and Rhythm Respiratory: Yes: Regular, CTA Bilaterally Gastrointestinal: Yes: Normal Bowel Sounds, Soft, Tenderness (minimal incisional only). No: Distention Genitourinary: No: Elizabeth Present, Incontinence Musculoskeletal: No: Joint Stiffness, Joint Swelling Extremities: No: Cool, Cyanosis Integumentary: Yes: Incision (midline w/david, old stoma site dressed). No: Jaundice, Rash Wound/Incision: Yes: Clean/Dry (midline), Well Approximated (midline), David Intact (midline), Dressing Dry and Intact (brown/serous staining on dsg at stoma site), Dressing Removed (and changed), Bleeding (from one spot inside left inferior margin with dressing removal - silver nitrate used to stop it), Unapproximated (stoma site - 4 x 1.4cm x 4cm deep, elliptical - early granulation, clean wound; little slough from yesterday's silver nitrate with pink underneath), Other (repacked with saline-damp 4x4 gauze x2, covered with gauze and tape) Neurological: Yes: Alert, Oriented. No: Unsteady Gait Labs: no new labs Problem List - Problems (1) Colostomy status Assessment/Plan: POD4 s/p reversal of Eliud's procedure pain controlled with nonnarcotic meds - change to prn incision with david c/d/i silver nitrate used to stop bleeding inside edge of old stoma site old stoma site repacked - will need daily wound care with saline-damp packing/ dressing changes after discharge pt followed my demonstration - confident he will be able to help at home when VNS not there SW/CM arranging for VNS on d/c home anticipate d/c home in am Elizabeth out, voiding well + bowel function tolerating regular diet ambulating well, with and without PT continue IS, pulm toilet continue home meds DVT/GI prophylaxis d/c planning - likely in am with VNS to start next day Problems reviewed: Yes Code(s): Z93.3 - COLOSTOMY STATUS (2) Gastroesophageal reflux disease with ulceration Assessment/Plan: continue home PPI Code(s): K21.9 - GASTRO-ESOPHAGEAL REFLUX DISEASE WITHOUT ESOPHAGITIS (3) Idiopathic angioedema Code(s): T78.3XXA - ANGIONEUROTIC EDEMA, INITIAL ENCOUNTER Qualifiers: Encounter type: sequela Qualified Code(s): T78.3XXS - Angioneurotic edema, sequela (4) Panic anxiety syndrome Code(s): F41.0 - PANIC DISORDER [EPISODIC PAROXYSMAL ANXIETY] (5) Anxiety Assessment/Plan: continue home Prozac Code(s): F41.9 - ANXIETY DISORDER, UNSPECIFIED
[2019-07-10] MEDS ORDERED: ACETAMINOPHEN 325 MG TABLET (FP) PO PRN (16:46)
[2019-07-10] MEDS: IBUPROFEN 600 MG TABLET (FP) PO PRN (21:23)
[2019-07-11] MEDS: AMINO ACIDS/PROTEIN HYDROLYS 30 ML LIQUID.PKT PO SCH (08:11)
[2019-07-11] MEDS: FLUoxetine HCL 20 MG CAPSULE (FP) PO SCH (09:34)
[2019-07-11] MEDS: ENOXAPARIN NA (PORCINE) 40 MG/0.4 ML DISP.SYRIN SQ SCH (09:34)
[2019-07-11] MEDS: PANTOPRAZOLE 40 MG TABLET (FP) PO SCH (09:34)
[2019-07-11] MEDS: IBUPROFEN 600 MG TABLET (FP) PO PRN (09:34)
--- NOTE | 2019-07-11 11:09 | DS ---
Physical Examination Vital Signs: Vital Signs Temperature 98.1 F 07/11/19 05:00 Pulse Rate 70 07/11/19 05:00 Respiratory Rate 20 07/11/19 00:01 Blood Pressure 139/78 07/11/19 05:00 O2 Sat by Pulse Oximetry (%) 96 07/10/19 21:00 Findings/Remarks: Covering for Dr. Jacinto: s/p colostomy reversal Saturday Pt seen and examined in bed. Feeling well, tolerating regular diet, voiding and with + bowel function. Pain minimal on prn nonnarcotics. Ambulating well. Constitutional: Yes: Well Nourished, No Distress, Calm Eyes: Yes: Conjunctiva Clear, EOM Intact HENT: Yes: Atraumatic, Normocephalic Cardiovascular: Yes: Regular Rate and Rhythm Respiratory: Yes: Regular, CTA Bilaterally Gastrointestinal: Yes: Normal Bowel Sounds, Soft. No: Distention, Tenderness ( minimal incisional tenderness only) Extremities: No: Cool, Cyanosis Integumentary: Yes: Erythema (mild pink area just under umbilicus between incision and stoma site, nontender, not firm or fluctuant), Incision (midline w/ alla; old stoma site). No: Jaundice, Rash Wound/Incision: Yes: Clean/Dry (midline), Well Approximated (midline), Alla Intact (midline), Dressing Dry and Intact (bandaid at lower abd fold - replaced ; serous drainage on stoma site dsg; removed), Dressing Removed, Unapproximated (old stoma site - wound clean, granulating doan, few residual dark spots from silver nitrate; no bleeding - repacked by patient with saline-damp 4x4 gauze x2) . No: Bleeding Neurological: Yes: Alert, Oriented Labs: no new labs Discharge Summary Problems reviewed: Yes Reason For Visit: COLOSTOMY REVERSAL Current Active Problems Colostomy status (Acute) Gastroesophageal reflux disease with ulceration (Acute) Anxiety/panic disorder Procedures: Principal: reversal of colostomy Other Procedures: TAP block by anesthesia preoperatively Hospital Course: 49yo M with anxiety/panic disorder, idiopathic angioedema, GERD, s/p Eliud's procedure with colostomy 03/22/19 for perforated diverticulitis, was admitted for colostomy reversal and subsequent postop care. He underwent operation on 07/[address] Jacinto and received preop Cefoxitin for antibiotic prophylaxis. He had a TAP block by anesthesia preoperatively to help with postop analgesia. His Elizabeth was removed in the afternoon on POD1, but he experienced urinary retention with pain, hypertension and tachycardia, as he was unable to move well enough yet to sit or stand for voiding attempts, and Elizabeth was reinserted that evening with ~900ml out the first hour and significant subjective relief. He tolerated clears postop, and began passing flatus in the next two days, and then BMs (bloody at first, then loose/liquidy). Diet was advanced to full liquids, and then to regular once he had loose brown BMs, which he has tolerated well. Pain improved, and he began ambulating with PT and then independently. Elizabeth was removed again yesterday morning with spontaneous voiding afterward. His incision with alla is clean and dry. Old stoma site is being packed daily with saline-damp gauze, and the the wound is clean and beginning to granulate. He was able to perform dressing change today prior to leaving. VNS will be arranged to help with daily wound care. He is discharged home with lifting restrictions to follow up next week. Pain is controlled with prn Tylenol and ibuprofen. Time spent on discharge: 40 minutes Condition: Good - Instructions Diet, Activity, Other Instructions: Postoperative instructions: You had a colostomy reversal on 07/06/[address] Mercedes Jacinto of [facility]. Activity: Resume your usual activities gradually, but no heavy exertion or lifting more than 10-15 pounds for 4-6 weeks. Remove dressings 48 hours after surgery, if they are not already off. You may shower daily with your dressing off and packing out, just pat the incision areas dry. No bath or swimming until skin incisions have healed. Alla should not need to be recovered with any dressings, unless you have been told otherwise. Eat lightly at first, but advance to your usual diet as tolerated. Wound Care: Daily dressing changes to old stoma site - remove packing before or in shower. Repack site afterwards with saline-dampened 4x4 gauze x 1-2 pieces, just to fit the wound without leaving damp gauze outside on intact skin. Cover with small folded dry gauze and tape to hold. A visiting nurse will come to your home to assist with wound care. You or a family member will need to learn to do the dressings on days when the VNS does not come. You were able to demonstrate your dressing change prior to leaving the hospital. Pain: For pain, you may use and alternate Tylenol (acetaminophen) 1-2 pills and/ or ibuprofen 200 mg (1-3 pills) every 6 hours each as needed; this means that you can take one OR the other at 3-hour intervals. Do not take more than 4000 mg of acetaminophen in a day. Take medications as prescribed or indicated on the labeling. Decrease pain medications as your pain improves. Follow-up: Call Dr. Jacinto's/Dr. Tang's office at [phone] to make your postop appointment (Saturday in approximately 2 weeks after surgery as advised) . Clinic is held in the [facility] on the first floor of [facility]. Call the office if you have: * increasing pain not responsive to pain medication * fever of 101F or higher * vomiting * unusual or increasing bleeding or drainage from wounds * increasing redness or swelling at wound sites Also, see your primary medical doctor within 1-2 weeks. Referrals: Mercedes Jacinto MD [Staff Physician] - Horace Tang MD [Staff Physician] - Deena Pete [Non Staff, Medical] - Disposition: HOME - Home Medications Comprehensive Discharge Medication List: Ambulatory Orders Fluoxetine HCl [Prozac] 20 mg PO DAILY #30 capsule 02/27/19 Pantoprazole Sodium 40 mg PO DAILY 07/02/19 Acetaminophen [Tylenol .Regular Strength -] 650 mg PO Q6H PRN tablet 07/10/19 Ibuprofen [Motrin -] 600 mg PO Q6H PRN tablet 07/10/19
[2019-07-11 11:35] VITALS: BP 143/87; PULSE 71; TEMP 98
== END 2019-07-11 13:55 | disposition home health service (06) | DRG 221 ==
LOC: JASU-SURG 09:18 → EDSTATUS 11:30 → JSAMEDAYSX 16:08 → J6S 17:55
PROVIDERS: ADMIT Specialist; ATTEND Specialist
PROC: 0DBN0ZZ Excision of Sigmoid Colon, Open Approach (ICD-10-PCS; principal; 2019-07-06 11:30)
DX: Z43.3 Encounter for attention to colostomy (principal); F32.9 Major depressive disorder, single episode, unspecified; F41.9 Anxiety disorder, unspecified; K21.9 Gastro-esophageal reflux disease without esophagitis; F41.0 Panic disorder [episodic paroxysmal anxiety]; R00.0 Tachycardia, unspecified; R33.8 Other retention of urine
CPT/HCPCS: 36415; 71045-TC-FY; 80048; 80053; 81003; 83605; 83735; 84100; 84484; 85025; 86850; 86900; 86901; 87040; 87086; 93005; 93010; 94760; 97116-GP; 97162-GP